=== PATIENT | male | born 1940 | race Caucasian/White ===

== ENCOUNTER 2017-02-14 12:50 | Inpatient (IN) | payer MEDICARE, OTHER ==
[2017-02-14] VITALS (8 sets, daily range): BP systolic 94–158; BP diastolic 49–84
[~2017-02-14] VITALS: Ht 170.2 cm; Wt 77.2 kg
--- NOTE | 2017-02-14 12:56 | PHYS DOC ---
Adult General Chief Complaint Chief Complaint: MECHANICAL FALL HPI HPI Patient presented to the emergency department from home via EMS for evaluation of worsening weakness confusion and inability to stand or walk. He was starting to feel worse last night as patient's son has been having diarrhea which he thinks he passed it onto his father who is been having diarrhea as well this morning he had a syncopal episode or some sort of fall and was found down and he could not stand up or make the slightest effort to get up. Son had to pick him up and still the patient would not move at all so EMS was called. Patient is pleasantly confused and no 1 and family feels that his confusion is slightly worse. Patient denies any complaints whatsoever as he denies any pain fevers or vomiting but as stated above his mental capacity is rather limited. He has not seen a physician in at least several years per the family and he does have diabetes that is not being treated at all. He is in no obvious distress however tachycardic. Review of Systems Review of Systems UNABLE TO OBTAIN DUE TO DEMENTIA Physical Exam Physical Exam Constitutional: Well developed, well nourished, no acute distress, non-toxic appearance. [] HENT: Normocephalic, atraumatic, bilateral external ears normal, oropharynx moist, no oral exudates, nose normal. [] Eyes: PERRLA, EOMI, conjunctiva normal, no discharge. [] Neck: Normal range of motion, no tenderness, supple, no stridor. Negative Kernig 's and Brudzinski's. Cardiovascular:Heart rate regular rhythm but tachycardic, no murmur [] Lungs & Thorax: Bilateral breath sounds clear to auscultation [] Abdomen: Bowel sounds normal, soft, no tenderness, no masses, no pulsatile masses. [] Skin: Warm, dry, no erythema, no rash. [] Back: No tenderness, no CVA tenderness. [] Extremities: No tenderness, no cyanosis, no clubbing, ROM intact, no edema. [] Neurologic: Alert and oriented X 1, normal motor function, normal sensory function, no focal deficits noted. [] EKG EKG [] Radiology/Procedures Radiology/Procedures CT head without contrast History: Fall today, altered mental status. Comparison: None. Procedure: Axial images are obtained of the head from the skull base through the vertex without IV contrast. One or more of the following individualized dose reduction techniques were utilized for the study: Automated exposure control Adjustment of mA and/or kV according to patient's size Use of iterative reconstruction technique. Findings: The ventricles and sulci are normal for the patient's age. No mass-effect, intracranial mass, midline shift, hemorrhage or obvious acute infarction is identified. Basilar cisterns are patent. Bone windows demonstrate no significant calvarial abnormality. The visualized paranasal sinuses appear clear. Impression: No acute intracranial process. Please note that CT can be relatively insensitive to acute ischemic infarction for up to 24 hours after symptom onset. DICTATED AND SIGNED BY: CATHLEEN HARO MD DATE: 02/14/17 3928 Exam: AP portable chest. History: Altered mental status, fall. Comparison: None. Findings: The heart and mediastinal structures are within normal limits for size. Lungs are without infiltrate. No pneumothorax or pleural effusion is appreciated. Impression: 1. No acute cardiopulmonary process. DICTATED AND SIGNED BY: CATHLEEN HARO MD DATE: 02/14/17 0537 Course & Med Decision Making Course & Med Decision Making Patient presenting to the emergency department for worsening weakness and confusion. He is in mild DKA however he is not severely acidotic based off his chemistry profile. He does have lactic acid acidosis. Source of infection unknown however his chest x-ray and urine are clear he may have an infectious diarrhea. Son's diarrheas clearing so it is doubtful that it is C. difficile. Patient is being treated aggressively with IV fluids and given a dose of Rocephin in addition to starting an insulin drip. We'll also get by mouth and IV potassium. Patient admitted in stable but serious condition to the ICU. Critical care time of 35 minutes. Dragon Disclaimer Dragon Disclaimer This chart was dictated in whole or in part using Voice Recognition software in a busy, high-work load, and often noisy Emergency Department environment. It may contain unintended and wholly unrecognized errors or omissions. Departure Departure: Impression: Primary Impression: Sepsis Additional Impressions: Lactic acid acidosis DKA (diabetic ketoacidoses) Diarrhea Leukocytosis Hypokalemia Disposition: ADMITTED INPATIENT Condition: IMPROVED Problem Qualifiers Primary Impression: Sepsis Sepsis type: sepsis due to unspecified organism Qualified Code: A41.9 - Sepsis, unspecified organism Additional Impressions: WILLIAM THAKKAR DO Feb 14, 2017 12:56
--- NOTE | 2017-02-14 13:22 | EKG ---
[address] [address] Test Date: 2017-02-14 Test Time: 13:20:09 Pat Name: MICK VALDOVINOS Department: Room: Gender: M Donor Floor Technician: : 1940 Requested By: WILLIAM THAKKAR Order Number: [id number] Julia MD: Bronson Alanis Measurements Intervals [place] Rate: 108 P: 52 DC: 186 QRS: -114 QRSD: 82 T: 67 QT: 324 QTc: 438 Interpretive Statements SINUS TACHYCARDIA Electronically Signed On 02-17-2017 9:39:20 CDT by Bronson Alanis
[2017-02-14] MEDS ORDERED: IV NORMAL SALINE 1,000ML 1,000 ML IV ONE ×2 (13:45→14:15)
[2017-02-14 13:53] LABS: BASO % 0 % (0-3); EOS % 0 % (0-3); HEMATOCRIT 48.1 % (39.0-53.0); HEMOGLOBIN 16.1 g/dL (13.0-17.5); LYMPH # 0.5 x10^3/uL (1.0-4.8); LYMPH % 3 % (24-48); MEAN CORPUSCULAR HEMOGLOBIN 30 pg (25-35); MEAN CORPUSCULAR HGB CONC 34 g/dL (31-37); MEAN CORPUSCULAR VOLUME 89 fL (79-100); MONO # 1.3 x10^3/uL (0.0-1.1); MONO % 8 % (0-9); NEUT # 13.9 x10^3uL (1.8-7.7); NEUT % 89 % (31-73); PLATELET COUNT 320 x10^3/uL (140-400); RED BLOOD COUNT 5.43 x10^6/uL (4.30-5.70); RED CELL DISTRIBUTION WIDTH 12.5 % (11.5-14.5); WHITE BLOOD COUNT 15.7 x10^3/uL (4.0-11.0)
--- NOTE | 2017-02-14 13:57 | RAD ---
Exam: AP portable chest. History: Altered mental status, fall. Comparison: None. Findings: The heart and mediastinal structures are within normal limits for size. Lungs are without infiltrate. No pneumothorax or pleural effusion is appreciated. Impression: 1. No acute cardiopulmonary process.
--- NOTE | 2017-02-14 13:58 | RAD ---
CT head without contrast History: Fall today, altered mental status. Comparison: None. Procedure: Axial images are obtained of the head from the skull base through the vertex without IV contrast. One or more of the following individualized dose reduction techniques were utilized for the study: Automated exposure control Adjustment of mA and/or kV according to patient's size Use of iterative reconstruction technique. Findings: The ventricles and sulci are normal for the patient's age. No mass-effect, intracranial mass, midline shift, hemorrhage or obvious acute infarction is identified. Basilar cisterns are patent. Bone windows demonstrate no significant calvarial abnormality. The visualized paranasal sinuses appear clear. Impression: No acute intracranial process. Please note that CT can be relatively insensitive to acute ischemic infarction for up to 24 hours after symptom onset.
[2017-02-14 14:12] LABS: ALBUMIN 3.8 g/dL (3.4-5.0); CALCIUM 8.8 mg/dL (8.5-10.1); CREATININE 1.3 mg/dL (0.7-1.3); GFR 53.8; POTASSIUM 3.3 mmol/L (3.5-5.1); TOTAL BILIRUBIN 1.6 mg/dL (0.2-1.0); TOTAL PROTEIN 7.8 g/dL (6.4-8.2)
[2017-02-14 14:16] LABS: CLARITY,URINE HAZY; COLOR,URINE YELLOW; GLUCOSE,URINE >=1000 mg/dL (NEG)
[2017-02-14 14:17] LABS: BACTERIA,URINE 0 /HPF (0-FEW); BILIRUBIN,URINE NEG (NEG); NITRITE,URINE NEG (NEG); SQUAMOUS EPITHELIAL CELL,UR FEW /LPF; UROBILINOGEN,URINE 0.2 mg/dL (0.2 mg/dL); WBC,URINE OCC /HPF (0-4)
[2017-02-14] MEDS ORDERED: ONDANSETRON PF 4 MG/2 ML VIAL. IV PRN ×3 (14:30→16:30)
[2017-02-14 14:48] LABS: % BANDS 2 % (0-9); % LYMPHS 3 % (24-48); % MONOS 14 % (0-10); % SEGS 81 % (35-66)
[2017-02-14 14:57] LABS: PLT ESTIMATE ADEQUATE (ADEQUATE)
[2017-02-14] MEDS ORDERED: POTASSIUM CHLORIDE 20 MEQ TABLET.ER. PO ONE ×3 (15:15→21:00)
[2017-02-14] MEDS ORDERED: POTASSIUM CHLORIDE 20MEQ 100 ML IV ONE (15:15)
--- NOTE | 2017-02-14 15:23 | ACF ---
Admission Criteria Forms SEPSIS and OTHER FEBRILE ILLNESS, W/O FOCAL INFECTION Clinical Indications for Admission to Inpatient Care ( Place 'X' for any and all applicable criteria): Admission is indicated for ANY ONE of the following (1)(2)(3)(4): [ ] I. Bacteremia [ ]II. Suspected or identified specific infection requiring hospitalization (eg, meningitis, endocarditis) [ ]III. Hemodynamic instability [ ]IV. Altered mental status [ ]V. Failure or unavailability of outpatient antimicrobial treatment [ ]. Hypoxemia [ ]VII. Seizures [ ]VIII. High-risk febrile neutropenia [ ]IX. Need for parenteral antibiotic in patient who is likely to abuse vascular access device (eg, injection drug user) [A](7) [ ]X. Temperature greater than 104.9 degrees F (40.5 degrees C) (oral) [X]XI. Inpatient admission required rather than observation care because of ANY ONE of the following: [ ]1) Specific infection identified that is too severe for outpatient treatment or observation care trial [X]2) Metabolic disorder (eg, hypoglycemia, hyperglycemia, metabolic acidosis) that is severe or persistent [ ]3) Temperature greater than 103.1 degrees F (39.5 degrees C) ( oral) that is not responsive to observation care treatment [ ]4) IV fluid to replace significant ongoing (eg, for over 24 hours) losses (> 3 L/m2 per day) [ ]5) Supplemental oxygen or respiratory treatments for over 24 hours that is performable only in acute inpatient setting [ ]6) Parenteral nutrition regimen need that must be implemented on inpatient basis [ ]7) Strict or protective (eg, laminar flow) isolation [ ]8) Other condition, treatment or monitoring requiring inpatient admission Extended stay beyond goal length of stay may be needed for(1)(3) [ ]a) Sepsis or septic shock(22) [ ]b) Positive blood cultures [ ]c) Insufficient oral intake [ ]d) High-risk febrile neutropenia(29)(30) [ ]e) Continued fever and clinical instability [ ]f) Clinically active comorbid illness (e.g,heart failure, renal failure , diabetes) The original [facility] content created by Rosana Almeida has been revised. The portions of the content which have been revised are identified through the use of italic text or in bold, and Rosana Almeida has neither reviewed nor approved the modified material. All other unmodified content is copyright [facility]. Please see references footnoted in the original [facility] edition 2016 Admission Criteria Met?: Yes DERRICK VERONICA Feb 14, 2017 15:23
[2017-02-14] MEDS ORDERED: INSULIN REGULAR 150 UNIT in 0.9 % SODIUM CHLORIDE 150ML 150 ML IV ONE ×2 (15:30→16:45)
[2017-02-14] MEDS ORDERED: HALOPERIDOL LACT 5 MG/ML VIAL. IM ONE (15:30)
[2017-02-14] MEDS ORDERED: INSULIN REGULAR 150 UNIT in 0.9 % SODIUM CHLORIDE 150ML 150 ML IV PRN (16:30)
[2017-02-14] MEDS ORDERED: METOCLOPRAMIDE HCL 10 MG/2 ML VIAL. IV PRN (16:30)
[2017-02-14] MEDS ORDERED: PROCHLORPERAZINE 10 MG/2 ML VIAL. IV PRN (16:30)
[2017-02-14] MEDS ORDERED: ACETAMINOPHEN 325 MG TABLET PO PRN (16:30)
[2017-02-14] MEDS ORDERED: PROMETHAZINE 12.5 MG in IV NORMAL SALINE 50ML 50 ML IV PRN (17:15)
--- NOTE | 2017-02-14 17:28 | NUR ---
PT admitted to ICU. PT has dementia and is a poor historian. and step son are at bedside to give history. PT is normally confused, but was even worse than normal and had fallen and was unable to get up. Pt is incontinent at this time, which is abnormal for patient. PT is resting comfortably. Pt was saturated with urine on arrival to ICU. Yolanda SALAMANCA
[2017-02-14] MEDS: NORMAL SALINE IV SCH ×3 (18:11→18:42)
[2017-02-14] MEDS ORDERED: POTASSIUM CHLORIDE 40 MEQ in IV DEXTROSE 5 %-0.45 % NACL 1,000 ML IV SCH (19:00)
--- NOTE | 2017-02-14 19:15 | HP ---
ADMIT DATE: 02/14/2017 HISTORY OF PRESENT ILLNESS: The patient is a 76-year-old male patient who was brought to the Emergency Department from home via [facility] for evaluation of worsening weakness, confusion and inability to stand or walk. He apparently has had diarrhea and apparently had a syncopal episode with some sort of fall, was found down on the floor and could not stand up or make the slightest effort to get up. Son had picked him up and still the patient would not move at all and therefore the [facility] personnel were called. The patient is pleasantly confused, oriented to himself only and the family, his and his stepson felt that his confusion has worsened. The patient himself denied any complaints whatsoever. Denied any pain, nausea or vomiting. Apparently, he has not seen a physician for at least several years per the family and was in no distress when arrived to the Emergency Room, although he was tachycardic. He was investigated in the Emergency Room, was found to have leukocytosis with a white cell count of 15,000. He has also lactic acidosis and marked hyperglycemia with a blood sugar of 464 and hypokalemia with serum potassium of 3.3. His beta natriuretic peptide was high at 1091. As he has also fever, he was admitted with sepsis. Blood cultures were taken and he was admitted to the ICU to continue with IV antibiotics, IV fluid and insulin drip. PAST MEDICAL HISTORY: Significant for hypertension, diabetes, recurrent falls and dementia. PAST SURGICAL HISTORY: Significant for skin cancer removal. ALLERGIES: He has no known drug allergies. MEDICATIONS: He is not on any medication at home. FAMILY HISTORY: Unobtainable. SOCIAL HISTORY: He is , lives with his and zhenon. He does not smoke, drink alcohol or use any recreational drugs. REVIEW OF SYSTEMS: Unobtainable. The patient is extremely demented. PHYSICAL EXAMINATION: GENERAL: On examining him, he was in no apparent respiratory distress. No pallor, jaundice, cyanosis. No lymphadenopathy, no thyromegaly. No jugular venous distension. No lower limb edema. VITAL SIGNS: His heart rate was high on arrival to the Emergency Room at 110, blood pressure 146/84, temperature was 97.6 that has risen to 100.5, his respiratory rate was 16 and oxygen saturation was 97%. HEAD, EYES, EARS, NOSE AND THROAT: Showed normocephalic, atraumatic. NECK: Supple. HEART: Showed normal first and second heart sounds with no gallop, rub or murmur. CHEST: Clear to auscultation. No crepitation or rhonchi. ABDOMEN: Distended, soft, nontender. NEUROLOGIC: He was awake, alert only to self. Apparently, all his cranial nerves are intact. He moves upper extremities to a much greater extent than his lower extremities. He is mostly bed bound, although at home, he used to be able to walk. He is also incontinent of bowel and bladder. LABORATORY DATA: On admission showed a white cell count of 15,700, hemoglobin 16, hematocrit 48, MCV 89 and platelet count of 320,000 with normal manual differential. His prothrombin time was 10.9, INR 1.1, aPTT was 24. His chemistry showed a serum sodium 139, potassium 3.3, chloride 103, bicarbonate 23, anion gap of 13, BUN 17, creatinine 1.3, estimated GFR was 54 mL per minute. His glucose was 464, calcium was 8.8. His AST, ALT were normal, however, total bilirubin and alkaline phosphatase were high. His beta natriuretic peptide was 1091 and his total protein 7.8, albumin was 3.8. His urinalysis showed the urine was yellow, hazy with a pH of 5, specific gravity 1.005. There was large amount of glucose, trace of protein, trace of ketones and trace of blood. The urine was negative for nitrite, bilirubin and leukocyte esterase. There was 1-2 rbc's, occasional wbc's, no bacteria. His chest x-ray showed that the heart and mediastinal structures are within normal limits for size, lungs are without infiltrate, no pneumothorax or pleural effusion is appreciated. CT scan of the head was unremarkable and showed that the ventricles and sulci are normal for the patient's age. No mass effect, intracranial mass, midline shift, hemorrhage, obvious acute infarction were identified. His basilar cisterns are patent. Bone windows demonstrate no significant calvarial abnormality. The visualized paranasal sinuses appear normal. The impression is that the patient has no acute intracranial process with the note that the CT scan can be relatively insensitive to acute ischemic infarct up to 24 hours after symptom onset. Given that he has no evidence of urinary tract infection, the lungs are clear, his chemistry showed slightly elevated alkaline phosphatase and total bilirubin raising the possibility of biliary obstruction and therefore, I will broaden his coverage with the Zosyn. I will arrange for him to have ultrasound of abdomen tomorrow and decide on further management accordingly. PROMISE OLSEN MD DR: SOHAN/laura JOB#: [id number] / [id number]
[2017-02-14] MEDS: PIPERACILLIN/TAZOBACTAM 3.375 GM in IV NORMAL SALINE 50ML 50 ML IV SCH (19:43)
--- NOTE | 2017-02-14 19:47 | EKG ---
[address] [address] Test Date: 2017-02-14 Test Time: 18:46:07 Pat Name: MICK VALDOVINOS Department: Room: [facility] 1 Gender: M Family Psychologist: MADELAINE : 1940 Requested By: PROMISE OLSEN Order Number: [id number] Reading MD: Bronson Alanis Measurements Intervals [place] Rate: 86 P: 54 MT: 200 QRS: 48 QRSD: 80 T: 88 QT: 372 QTc: 448 Interpretive Statements SINUS RHYTHM NON-SPECIFIC ST/T CHANGES Electronically Signed On 02-19-2017 9:56:23 CDT by Bronson Alanis
[2017-02-14] MEDS ORDERED: HALOPERIDOL LACT 5 MG/ML VIAL. ONE (21:06)
[2017-02-14] MEDS: POTASSIUM CL 40MEQ D5-0.45NACL 1,000 ML IV SCH (22:07)
[2017-02-15] VITALS (24 sets, daily range): BP systolic 87–129; BP diastolic 43–76
[2017-02-15] MEDS: PIPERACILLIN/TAZOBACTAM 3.375 GM in IV NORMAL SALINE 50ML 50 ML IV SCH ×4 (00:28→18:20)
[2017-02-15] MEDS: HALOPERIDOL LACT 5 MG/ML VIAL. IVP PRN ×2 (03:29→22:48)
[2017-02-15] MEDS: POTASSIUM CL 40MEQ D5-0.45NACL 1,000 ML IV SCH ×4 (04:14→19:30)
[2017-02-15 06:25] LABS: HEMATOCRIT 37.9 % (39.0-53.0); HEMOGLOBIN 12.5 g/dL (13.0-17.5); LYMPH % 8 % (24-48); MEAN CORPUSCULAR HEMOGLOBIN 29 pg (25-35); MEAN CORPUSCULAR HGB CONC 33 g/dL (31-37); MEAN CORPUSCULAR VOLUME 89 fL (79-100); MONO % 12 % (0-9); NEUT % 79 % (31-73); PLATELET COUNT 264 x10^3/uL (140-400); RED BLOOD COUNT 4.28 x10^6/uL (4.30-5.70); RED CELL DISTRIBUTION WIDTH 12.4 % (11.5-14.5); WHITE BLOOD COUNT 12.8 x10^3/uL (4.0-11.0)
[2017-02-15 06:26] LABS: BASO % 0 % (0-3); EOS # 0.2 x10^3/uL (0.0-0.7); EOS % 1 % (0-3); MONO # 1.5 x10^3/uL (0.0-1.1); NEUT # 10.1 x10^3uL (1.8-7.7)
[2017-02-15 06:32] LABS: ALBUMIN 2.7 g/dL (3.4-5.0); ALBUMIN/GLOBULIN RATIO 0.9 (1.0-1.7); CALCIUM 7.3 mg/dL (8.5-10.1); CREATININE 1.1 mg/dL (0.7-1.3); GFR 65.3; POTASSIUM 3.6 mmol/L (3.5-5.1); TOTAL BILIRUBIN 1.1 mg/dL (0.2-1.0); TOTAL PROTEIN 5.8 g/dL (6.4-8.2)
[2017-02-15 06:33] LABS: LACTATE DEHYDROGENASE 285 U/L (85-227); LIPASE 67 U/L (73-393)
[2017-02-15] MEDS ORDERED: LORazepam 0.5 MG TABLET PO PRN (06:45)
[2017-02-15] MEDS: LORazepam 2 MG/ML VIAL IV PRN ×2 (06:54→20:40)
--- NOTE | 2017-02-15 10:47 | RAD ---
Complete abdomen ultrasound study History: Fever. Elevated liver function tests. Findings: The pancreas is homogeneous without focal enlargement. No focal aneurysmal dilatation of the abdominal aorta is seen. The intrahepatic portion of the IVC is unremarkable. The gallbladder is normal and no gallstones are seen. The extrahepatic bile duct measures 3.5 mm in caliber which is normal. The liver is homogeneous and measures 14.9 cm in length. The length of the right kidney is 10.8 cm in length and the left kidney is 10.6 cm in length. No hydronephrosis or renal mass or perinephric fluid collection is seen on either side. The spleen is homogeneous and measures 10.3 cm in length. No ascites is seen. IMPRESSION: Unremarkable study.
[2017-02-15] MEDS ORDERED: IV NORMAL SALINE 1,000ML 1,000 ML ONE (13:25)
[2017-02-15] MEDS ORDERED: IOHEXOL 300 MG/ML 75 ML VIAL. IV ONE (14:00)
--- NOTE | 2017-02-15 16:29 | PN ---
DATE: 02/15/2017 SUBJECTIVE: The patient is resting flat, comfortably, in no apparent respiratory distress. He is very confused, restless at times, required Haldol and Ativan. He continued to have borderline blood pressure, although he is afebrile today. He is unfortunately very demented and does not give any useful information. His intake was 4000, output was 400. OBJECTIVE: HEAD, EYES, EARS, NOSE, AND THROAT: Normocephalic, atraumatic. NECK: Supple. HEART: Showed normal first and second heart sounds, no gallop, rub or murmur. LUNGS: Clear to auscultation. No crepitation, no rhonchi. ABDOMEN: Distended, soft, nontender. No guarding or rigidity. No organomegaly. Hernial orifices intact. Bowel sounds normal. NEUROLOGIC: He was demented without any obvious lateralizing sign. All his cranial nerves are intact. He moves upper extremities without difficulty, although he continues to be mostly bedbound. LABORATORY DATA: His lab work as of this morning showed a serum sodium 142, potassium 3.6, chloride 110, bicarbonate 22, anion gap of 10, BUN 18, creatinine 1.1, estimated GFR was 65 mL per minute. His blood sugar was 112, calcium was 7.3. Total bilirubin 1.1. AST was 75. His alkaline phosphatase normal. His LDH was high, 285. His total protein was 5.8, albumin 2.7 and lipase was 67. His white cell count was 12,800, hemoglobin 12.5, hematocrit 37.9, MCV 89 and platelet count of 264,000 with a manual differential shows 79% polymorphs, 8% lymphocytes, 12% monocytes. ASSESSMENT: 1. Sepsis with no obvious source. His lungs are clear. Urinalysis was unremarkable. 2. The patient has hypotension, lactic acidosis and elevated LDH to getting possible bowel ischemia. His bilirubin and alkaline phosphatase was slightly high; however his abdominal ultrasound showed no evidence of acute cholecystitis or biliary obstruction. 3. Type 2 diabetes mellitus, seems reasonably controlled. 4. Hypertension, however the patient in fact hypotensive. 5. Dementia with recurrent falls. PLAN: My plan is to continue with IV antibiotic, continue with IV fluid. I will arrange for him to have a CT scan of the abdomen and pelvis with IV and oral contrast and repeat his lab work including lactic acid. PROMISE OLSEN MD DR: Zaid JOB#: [id number] / [id number]
--- NOTE | 2017-02-15 16:54 | RAD ---
PROCEDURE CT abdomen pelvis without and with intravenous contrast. HISTORY Sepsis, diabetic ketoacidosis, leukocytosis, diarrhea. TECHNIQUE Initially, noncontrast CT of the abdomen and pelvis was performed. After intravenous contrast administration, 75 milliliters Omnipaque 300, repeat CT of the abdomen pelvis was performed with a split of the bolus within excretory and partial arterial phase secondary to technical issues. Exposure: One or more of the following individualized dose reduction techniques were utilized for this examination: 1. Automated exposure control. 2. Adjustment of the mA and/or kV according to patient size. 3. Use of iterative reconstruction technique. COMPARISON None. FINDINGS Evaluation of enteric structures may be limited by lack of oral contrast. There is also motion artifact at multiple levels which could obscure subtle abnormalities. Bilateral kidneys and ureters without evidence of stone or obstruction of the noncontrast images. Liver, spleen, pancreas, and bilateral adrenal glands are unremarkable. Gallbladder is unremarkable. Aortic atherosclerosis is seen. No bowel obstruction or inflammation is seen. Colonic diverticulosis is noted, but no diverticulitis appreciated. Appendix is without evidence of inflammation. Urinary bladder is unremarkable. The prostate is moderately enlarged. Grade 1 lytic spondylolisthesis is seen at L5-S1. Post-contrast images demonstrate symmetric excretion of contrast into the ureters by the kidneys. Urinary bladder is unremarkable. IMPRESSION No acute abnormality identified in the abdomen or pelvis. Electronically signed by: John Leija MD (Feb 15, 2017 16:53:15)
[2017-02-15] MEDS ORDERED: DEXTROSE 50% 25 GM / 50ML DISP.SYRIN. IV PRN (19:15)
[2017-02-15] MEDS: LOPERAMIDE 2 MG CAPSULE PO PRN (20:40)
[2017-02-16] VITALS (15 sets, daily range): BP systolic 101–168; BP diastolic 55–88
[2017-02-16] MEDS: POTASSIUM CL 40MEQ D5-0.45NACL 1,000 ML IV SCH ×5 (00:29→23:00)
[2017-02-16] MEDS: PIPERACILLIN/TAZOBACTAM 3.375 GM in IV NORMAL SALINE 50ML 50 ML IV SCH ×5 (00:31→23:09)
--- NOTE | 2017-02-16 02:00 | NUR ---
Pt is agitated and aggressive. Pt is picking and pulling at the wires, and does not respond to redirection or other medications. Dr. Hollis called and orders received.
[2017-02-16] MEDS ORDERED: ZIPRASIDONE IM 20 MG VIAL. IM ONE (02:15)
--- NOTE | 2017-02-16 04:39 | NUR ---
Pt is agitated and keeps getting out of bed. Ripped out several IVs throughout the night. MD called at this time and orders received.
[2017-02-16 05:57] LABS: BASO % 0 % (0-3); EOS # 0.2 x10^3/uL (0.0-0.7); EOS % 2 % (0-3); HEMATOCRIT 38.9 % (39.0-53.0); LYMPH # 1.3 x10^3/uL (1.0-4.8); LYMPH % 12 % (24-48); MEAN CORPUSCULAR HEMOGLOBIN 30 pg (25-35); MEAN CORPUSCULAR HGB CONC 33 g/dL (31-37); MEAN CORPUSCULAR VOLUME 89 fL (79-100); MONO # 1.1 x10^3/uL (0.0-1.1); MONO % 11 % (0-9); NEUT # 7.8 x10^3uL (1.8-7.7); NEUT % 75 % (31-73); PLATELET COUNT 243 x10^3/uL (140-400); RED CELL DISTRIBUTION WIDTH 12.4 % (11.5-14.5); WHITE BLOOD COUNT 10.5 x10^3/uL (4.0-11.0)
[2017-02-16 06:04] LABS: ALBUMIN 2.9 g/dL (3.4-5.0); ALBUMIN/GLOBULIN RATIO 0.9 (1.0-1.7); CALCIUM 7.9 mg/dL (8.5-10.1); CREATININE 1.1 mg/dL (0.7-1.3); GFR 65.3; POTASSIUM 4.1 mmol/L (3.5-5.1); TOTAL BILIRUBIN 1.1 mg/dL (0.2-1.0); TOTAL PROTEIN 6.2 g/dL (6.4-8.2)
[2017-02-16] MEDS: INSULIN ASPART 300 UNITS/3 ML INSULN.PEN SQ SCH ×3 (08:19→16:57)
[2017-02-16] MEDS: LOPERAMIDE 2 MG CAPSULE PO PRN ×2 (14:26→18:25)
[2017-02-16] MEDS: LORazepam 2 MG/ML VIAL IV PRN ×2 (15:25→20:07)
[2017-02-16] MEDS: HALOPERIDOL LACT 5 MG/ML VIAL. IVP PRN (21:48)
[2017-02-17] MEDS: LORazepam 2 MG/ML VIAL IV PRN (01:05)
[2017-02-17 04:03] VITALS: BP 140/72
[2017-02-17] MEDS: POTASSIUM CL 40MEQ D5-0.45NACL 1,000 ML IV SCH ×2 (05:37→09:53)
[2017-02-17] MEDS: PIPERACILLIN/TAZOBACTAM 3.375 GM in IV NORMAL SALINE 50ML 50 ML IV SCH (05:38)
[2017-02-17 07:33] VITALS: BP 138/72
[2017-02-17] MEDS: INSULIN ASPART 300 UNITS/3 ML INSULN.PEN SQ SCH ×2 (07:49→12:24)
[2017-02-17 08:00] VITALS: BP 140/79
--- NOTE | 2017-02-17 08:16 | NUR ---
PT confused this am. Unable to reorient. Pt is unable to verbalize understanding of poc. Yolanda SALAMANCA
[2017-02-17] MEDS ORDERED: METF500T4 PO (14:09)
[2017-02-17 14:39] VITALS: BP 137/60
--- NOTE | 2017-02-17 14:58 | NUR ---
PT dc to home. Step son and verbalized understanding of poc and discharge. Reinforced that patient needs to follow with a primary care doctor. PT is very confused. IV removed with ease. Went over metformin and s/s of diabetes. Yolanda SALAMANCA
--- NOTE | 2017-02-17 20:50 | DS ---
DATE OF DISCHARGE: 02/17/2017 DISCHARGE DIAGNOSES: Sepsis with no obvious source, multiple tests negative, although the patient did meet the criteria; hypotension, resolved; lactic acidosis, resolved; type 2 diabetes, slightly hyperglycemic, hypertension, hypotensive dementia with recurrent falls, weakness, possible syncopal episode and no current care by primary care doctor. HOSPITAL COURSE: A 76-year-old male who was admitted to the Emergency Department for worsening weakness, confusion, inability to stand or walk. The family had a gastroenteritis run through the family. He did meet criteria for sepsis and was aggressively treated. However, all of his workup was negative. He really "turned the corners," started to speak on 02/17/2017. His meds were taken off and he was taken to the shower. He was calm and cooperative, eating better, sitting up in chair. OBJECTIVE: VITAL SIGNS: Blood pressure 137/60, pulse 80, respirations 18 and pulse ox 98% on room air. GENERAL: He was alert. HEENT: The patient's tongue was moist. NECK: Supple. LUNGS: Clear. CARDIOVASCULAR: Regular rhythm and rate with a 2/6 systolic murmur. ABDOMEN: Soft, nontender. EXTREMITIES: Without edema. LABORATORY DATA: Normal white count of 10.5. Chemistry: Glucose is in the high 200s and 300s. C. diff toxin negative. MRSA screen negative. Blood cultures negative. Urinalysis is also negative. DISPOSITION: To home with home health. PLAN: He must resume care with the primary care doctor, started him back on metformin and we will need to have his blood sugars checked by the home health nurse and then will be released to his family's care. ANDREA MERINO DO DR: DEMETRIS/laura JOB#: [id number] / [id number]
--- NOTE | 2017-02-18 16:12 | CONS ---
DATE OF CONSULTATION: 02/16/2017 PSYCHIATRIC CONSULTATION IDENTIFYING DATA: The patient is a 76-year-old male seen in ICU bed 2, [facility] for a psychiatric consult requested by Dr. Hollis on account of the patient's increased agitation, aggression within the context of his dementia. The patient seen individually, discussed with nursing staff at some length, reviewed the chart. CHIEF COMPLAINT: "No." The patient responded after I introduced myself, asked him if he knew where he was or the year, even though he said his memory was "just fine." HISTORY OF PRESENT ILLNESS: The patient was brought to the ER via EMS for evaluation of worsening weakness, confusion, inability to stand or walk. Apparently, he had diarrhea, syncopal episodes and fall, was found on the floor, could not stand up despite significant effort. Son picked him up then brought him to the ER. He has been residing at home with family. Confusion has been worsening. Reportedly, he has not seen a physician for at least several years according to the family. In the ER, he was found to have leukocytosis, lactic acidosis, hyperglycemia, sugar of 464, potassium 3.3. BNP 1091, admitted to the ICU with sepsis. While in the ICU, remains quite psychotic, labile and some of this is worsening confusion being in the ICU. At times, he appears somewhat delusional. No clear suicidal or homicidal ideation. No history of bipolar disorder. PAST PSYCHIATRIC HISTORY: Noncontributory. PAST MEDICAL HISTORY: Hypertension, diabetes mellitus, recurrent falls, progressive Alzheimer's dementia. PAST SURGICAL HISTORY: Skin cancer removal. ALLERGIES: Negative. CURRENT PSYCHOTROPICS: Negative. FAMILY HISTORY: Noncontributory. SOCIAL HISTORY: He is , lives with his and stepson. No alcohol or drug abuse history noted. MENTAL STATUS EXAMINATION: The patient was seen in his room. He is well, awake, oriented to himself, unaware the way he was, felt the year was 19 "something." Speech is coherent, rapid at times. Insight, judgment, recent, remote memory, attention, concentration, fund of knowledge poor, consistent with his diagnoses. No clear hallucinations noted, but he is somewhat suspicious disorganized. LABORATORY DATA: Reviewed. VITAL SIGNS: Temperature 97.2, pulse 80, BP 120/66. REVIEW OF SYSTEMS: No CV, , pulmonary, eye system symptoms on review. Reliability poor. IMPRESSION: Major neurocognitive disorder, Alzheimer, vascular with depression, delusion, behavioral disturbance, possible delirium, anxiety disorder, unspecified. Rest diagnoses as above. PLAN: From a psychiatric standpoint, we will add Zyprexa Zydis 2.5 mg q.2 hours p.r.n. psychosis, agitation, no further change from a psychiatric standpoint. Depending on where he is placed he lead outpatient psychiatric followup with a psychiatrist. GRACE CRAWFORD MD DR: MUNIRA/laura JOB#: [id number] / [id number]
[2017-02-23] MEDS ORDERED: LINAGLIPTIN 5 MG TABLET PO SCH (09:00)
== END 2017-02-17 15:00 | disposition home health service (06) | DRG 871 ==
LOC: ER 12:50 → ICU 14:27
PROVIDERS: ADMIT Internal Medicine; ATTEND Internal Medicine
DX: A41.9 Sepsis, unspecified organism (principal); G92 Toxic encephalopathy; E13.10 Other specified diabetes mellitus with ketoacidosis without coma; F02.81 Dementia in other diseases classified elsewhere, unspecified severity, with behavioral disturbance; E87.6 Hypokalemia; F32.9 Major depressive disorder, single episode, unspecified; G30.9 Alzheimer's disease, unspecified; I10 Essential (primary) hypertension; I95.9 Hypotension, unspecified; R55 Syncope and collapse; E11.65 Type 2 diabetes mellitus with hyperglycemia
CPT/HCPCS: 36415; 70450; 71010; 74178; 76700; 80053; 81001; 82947; 83605; 83615; 83690; 83880; 84443; 84484; 85007; 85027; 85610; 85730; 87040; 87324; 87641; 93005; 96360; J0696; J1630; J1815; J2060; J2543; J3486; J7042; Q9967; 99291-25; J7030

== ENCOUNTER 2017-02-22 12:21 | Inpatient (IN) | payer MEDICARE, OTHER ==
[~2017-02-22] VITALS: Ht 170.2 cm; Wt 76.0 kg
[~2017-02-22 12:21] MED LIST: METF500T4 PO
--- NOTE | 2017-02-22 13:02 | EKG ---
[address] [address] Test Date: 2017-02-22 Test Time: 12:59:36 Pat Name: MICK VALDOVINOS Department: Room: Gender: M Assistant Reading Teacher: APURVA : 1940 Requested By: BETH PAEZ Order Number: [id number] Reading MD: Bronson Alanis Measurements Intervals [place] Rate: 71 P: 90 MD: 168 QRS: 17 QRSD: 72 T: 96 QT: 398 QTc: 437 Interpretive Statements SINUS RHYTHM Electronically Signed On 03-03-2017 8:45:45 CDT by Bronson Alanis
[2017-02-22 13:13] LABS: BASO # 0.1 x10^3/uL (0.0-0.2); BASO % 1 % (0-3); EOS # 0.1 x10^3/uL (0.0-0.7); EOS % 1 % (0-3); HEMATOCRIT 40.8 % (39.0-53.0); HEMOGLOBIN 14.1 g/dL (13.0-17.5); LYMPH # 1.9 x10^3/uL (1.0-4.8); LYMPH % 12 % (24-48); MEAN CORPUSCULAR HEMOGLOBIN 30 pg (25-35); MEAN CORPUSCULAR HGB CONC 35 g/dL (31-37); MEAN CORPUSCULAR VOLUME 88 fL (79-100); MONO # 1.6 x10^3/uL (0.0-1.1); MONO % 10 % (0-9); NEUT # 11.5 x10^3uL (1.8-7.7); NEUT % 76 % (31-73); PLATELET COUNT 569 x10^3/uL (140-400); RED BLOOD COUNT 4.65 x10^6/uL (4.30-5.70); RED CELL DISTRIBUTION WIDTH 12.4 % (11.5-14.5); WHITE BLOOD COUNT 15.1 x10^3/uL (4.0-11.0)
[2017-02-22 13:21] LABS: ALBUMIN 3.4 g/dL (3.4-5.0); ALBUMIN/GLOBULIN RATIO 0.8 (1.0-1.7); CALCIUM 8.9 mg/dL (8.5-10.1); GFR 72.8; TOTAL BILIRUBIN 1.1 mg/dL (0.2-1.0); TOTAL PROTEIN 7.6 g/dL (6.4-8.2)
--- NOTE | 2017-02-22 13:31 | PHYS DOC ---
Past History Past Medical History: No Pertinent History Past Surgical History: No Surgical History Alcohol Use: None Drug Use: None Adult General Chief Complaint Chief Complaint: ABNORMAL LABS HPI HPI Patient is a 76-year-old male brought to the ED by his son, sent to the ED by his doctor for abnormal labs with a white blood cell count of 13,000. Patient was seen here recently for an episode of syncope or near syncope and confusion, he was worked up in the ED and felt to maybe have sepsis, he had an elevated white count over 15 at that time, treatment was started and the patient was admitted to the hospital. I read the ED note and the hospital records from that visit. He improved symptomatically and they never did find a source of infection so it sounds like his antibiotics were discontinued when he was discharged to home. They did mention that the family had had a diarrheal illness including the patient prior to this admission and maybe ended up thinking the source was viral gastroenteritis. The patient has been feeling well since discharge. He went back to his doctor for recheck, a routine posthospitalization follow-up. He had blood drawn and they called them to say that his white blood cell count was elevated at 13 and wanted him to come to the ED and get checked out. The patient at this time has no complaints. He denies any aches or pains anywhere. He denies cough or short of air, denies any GI symptoms, denies any skin rash or lesions, denies abscess or redness on the skin. Denies any UTI symptoms. He's been eating well since discharge. His son feels that he is back to baseline. Review of Systems Review of Systems Constitutional: Denies fever or chills [] Eyes: Denies eye pain [] HENT: Denies nasal congestion or sore throat [] Respiratory: Denies cough or shortness of breath [] Cardiovascular: Denies chest pain GI: Denies abdominal pain, nausea, vomiting, bloody stools or diarrhea [] : Denies dysuria or hematuria [] Musculoskeletal: Denies back pain or joint pain [] Integument: Denies rash or skin lesions [] Neurologic: Denies headache, focal weakness or sensory changes [] Allergies Allergies Allergies Coded Allergies Type Severity Reaction Last Updated Verified No Known Drug Allergies 02/15/17 No Physical Exam Physical Exam Constitutional: Well developed, well nourished, no acute distress, non-toxic appearance. Afebrile, alert, mentating normally. HENT: Normocephalic, atraumatic, bilateral external ears normal, nose normal. [ ] Eyes: conjunctiva normal, no discharge. [] Neck: Normal range of motion, no stridor. [] Cardiovascular:Heart rate regular rhythm, no murmur [] Lungs & Thorax: Bilateral breath sounds clear to auscultation [] Abdomen: Bowel sounds normal, soft, no tenderness, no masses, no pulsatile masses. [] Skin: Warm, dry, no erythema, no rash. [] Extremities: No tenderness, no cyanosis, no clubbing, ROM intact, no edema. [] Neurologic: Alert and oriented X 3, normal motor function, normal sensory function, no focal deficits noted. [] Current Patient Data Vital Signs Vital Signs Date Time Temp Pulse Resp B/P (MAP) Pulse Ox O2 Delivery O2 Flow Rate FiO2 02/22/17 12:30 98.7 73 16 99 Room Air Lab Results Laboratory Tests Test 02/22/17 12:55 White Blood Count 15.1 x10^3/uL (4.0-11.0) H Red Blood Count 4.65 x10^6/uL (4.30-5.70) Hemoglobin 14.1 g/dL (13.0-17.5) Hematocrit 40.8 % (39.0-53.0) Mean Corpuscular Volume 88 fL (79-100) Mean Corpuscular Hemoglobin 30 pg (25-35) Mean Corpuscular Hemoglobin Concent 35 g/dL (31-37) Red Cell Distribution Width 12.4 % (11.5-14.5) Platelet Count 569 x10^3/uL (140-400) #H Neutrophils (%) (Auto) 76 % (31-73) H Lymphocytes (%) (Auto) 12 % (24-48) L Monocytes (%) (Auto) 10 % (0-9) H Eosinophils (%) (Auto) 1 % (0-3) Basophils (%) (Auto) 1 % (0-3) Neutrophils # (Auto) 11.5 x10^3uL (1.8-7.7) H Lymphocytes # (Auto) 1.9 x10^3/uL (1.0-4.8) Monocytes # (Auto) 1.6 x10^3/uL (0.0-1.1) H Eosinophils # (Auto) 0.1 x10^3/uL (0.0-0.7) Basophils # (Auto) 0.1 x10^3/uL (0.0-0.2) Platelet Estimate Pending Sodium Level 135 mmol/L (136-145) L Potassium Level 4.0 mmol/L (3.5-5.1) Chloride Level 98 mmol/L (98-107) Carbon Dioxide Level 28 mmol/L (21-32) Anion Gap 9 (6-14) Blood Urea Nitrogen 13 mg/dL (8-26) Creatinine 1.0 mg/dL (0.7-1.3) Estimated GFR (Cockcroft-Gault) 72.8 BUN/Creatinine Ratio 13 (6-20) Glucose Level 322 mg/dL (70-99) H Calcium Level 8.9 mg/dL (8.5-10.1) Total Bilirubin 1.1 mg/dL (0.2-1.0) H Aspartate Amino Transferase (AST) 96 U/L (15-37) H Alanine Aminotransferase (ALT) 28 U/L (16-63) Alkaline Phosphatase 111 U/L (46-116) Total Protein 7.6 g/dL (6.4-8.2) Albumin 3.4 g/dL (3.4-5.0) Albumin/Globulin Ratio 0.8 (1.0-1.7) L EKG EKG 12-lead EKG read by me. Sinus rhythm. Heart rate 71. There are no acute ST or T wave changes indicative of ischemia or infarction. No irregularities. No STEMI. 1259 [] Radiology/Procedures Radiology/Procedures Two-view chest x-ray read by me, no infiltrate, heart size normal, lung bailey are clear, no effusion. [] Course & Med Decision Making Course & Med Decision Making Pertinent Labs and Imaging studies reviewed. (See chart for details) 76-year-old male sent to the ED for elevated white blood cell count on posthospitalization follow-up labs. He was recently hospitalized for the concern for sepsis but no source of infection was ever found and he was released with no antibiotics and today he is asymptomatic. I recommended labs, urinalysis, chest x-ray today. Today, labs are concerning for leukocytosis, hyperglycemia, elevated lactic acid , but no focus of infection noted on urinalysis, chest x-ray, or physical exam. I discussed at length with the patient, and 3 adult children who are here with him. I'm concerned that the patient has diabetes out of control and I did not sure that it would be safe to try to get better control at home while he has some significant lab abnormalities going on and he also appears to be dehydrated. His leukocytosis could be stress and dehydration but I feel he should be observed in the hospital for better diabetes control and the fact that he does have elevated lactic acid. Although he was thoroughly worked up on his recent hospitalization, and no source of infection was found, I'm concerned that his evaluation today shows the same abnormalities that he had on his recent admission and at that time he ended up having syncope, altered mental status, and was more severely ill. I don't want to send him home to get worse and possibly have a fall. The patient and his family are all agreeable to the plan for admission. I discussed the case with Dr. Ghotra, [facility], who will admit the patient. I wrote bridge orders. [] Dragon Disclaimer Dragon Disclaimer This chart was dictated in whole or in part using Voice Recognition software in a busy, high-work load, and often noisy Emergency Department environment. It may contain unintended and wholly unrecognized errors or omissions. Departure Departure: Impression: Primary Impression: Lactic acid acidosis Additional Impression: Hyperglycemia due to type 2 diabetes mellitus Disposition: ADMITTED INPATIENT Admitting Physician: Katherine Ghotra Condition: STABLE Referrals: ODELL CHRISTINE APRN (PCP) Problem Qualifiers BETH PAEZ MD February 22, 2017 13:31
[2017-02-22 13:48] LABS: % EOS 2 % (0-5); % LYMPHS 10 % (24-48); % MONOS 4 % (0-10); % SEGS 81 % (35-66)
[2017-02-22 13:49] LABS: PLT ESTIMATE ADEQUATE (ADEQUATE)
--- NOTE | 2017-02-22 14:10 | RAD ---
Indication cough. Elevated white cell count. PA and lateral views of the chest were obtained. Comparison is made to an examination 02/14/2017. The heart and pulmonary vessels appear normal. The lungs are clear. There is no pleural fluid or pneumothorax. Bony structures appear intact. There is not been a significant change compared to the previous exam IMPRESSION: No acute finding. No significant change
[2017-02-22 14:56] LABS: BILIRUBIN,URINE NEG (NEG); CLARITY,URINE CLEAR; COLOR,URINE YELLOW; GLUCOSE,URINE >=1000 mg/dL (NEG)
[2017-02-22 14:57] LABS: BACTERIA,URINE 0 /HPF (0-FEW); NITRITE,URINE NEG (NEG); RBC,URINE RARE /HPF (0-2); UROBILINOGEN,URINE 0.2 mg/dL (0.2 mg/dL); WBC,URINE RARE /HPF (0-4)
[2017-02-22 14:58] LABS: SQUAMOUS EPITHELIAL CELL,UR OCC /LPF; YEAST,URINE PRESENT /HPF
[2017-02-22] MEDS ORDERED: IV NORMAL SALINE 1,000ML 1,000 ML IV ONE ×2 (15:30→17:15)
[2017-02-22 16:25] VITALS: BP 175/96
--- NOTE | 2017-02-22 16:25 | NUR ---
The patient, MICK VALDOVINOS, 76 y/o, M admitted by ANDREA MERINO DO, was given written information regarding hospital policies, unit procedures and contact persons. Valuables were checked and left with pt. Pt's family present on admission. Pt ambulated to bathroom with stand by assistance. Pt is alert and oriented but forgetful at times.
[2017-02-22 19:45] VITALS: BP 151/80
[2017-02-22] MEDS: hydrOXYzine PAMOATE 25 MG CAPSULE PO PRN (20:46)
[2017-02-22] MEDS: INSULIN DETEMIR 300 UNITS/3 ML INSULN.PEN. SQ SCH (20:48)
--- NOTE | 2017-02-23 04:14 | ACF ---
Admission Criteria Forms DIABETES Clinical Indications for Admission to Inpatient Care (Place 'X' for any and all applicable criteria): Admission is indicated by presence of ALL (if I & II) or ANY ONE (if III or IV) of the following (1)(2)(3)(4): [ ]I. Diabetes is uncontrolled as indicated by ANY ONE of the following: [ ]a) Diabetic ketoacidosis as indicated by ALL of the following (8): [ ]i) Hyperglycemia (eg, plasma glucose greater than 200 mg/ dL (11.1 mmol/L)) [ ]ii) Acidosis (eg, arterial pH less than 7.30, serum bicarbonate level less than 15 mEq/L (mmol/L)) [ ]iii) Moderate ketonuria or ketonemia [ ]b) Hyperglycemic hyperosmolar state as indicated by ALL of the following(9)(10): [ ]i) Neurologic dysfunction (eg, stupor, coma, hemiparesis , seizure)(13) [ ]ii) Plasma glucose greater than 600 mg/dL (33.3 mmol/L) [ ]iii) Serum osmolality greater than 320 mOsm/kg (mmol/kg) [ ]c) Severe signs or symptoms secondary to hyperglycemia indicated by ANY ONE of the following: [ ]i) Altered mental status(10) [ ]ii) Significant hypovolemia or dehydration [ ]iii) Intractable nausea or vomiting [ ]iv) Unexplained fever or severe infection [ ]v) Severe electrolyte abnormality (eg, hypokalemia, hyperkalemia, hypernatremia) [ ]II. Management at other levels of care (Also use Diabetes: Observation Care as appropriate) is not feasible because of ANY ONE of the following: [ ]a) Condition was not adequately corrected with treatment at other levels of care. [ ]b) Treatment at other levels of care is not appropriate because of condition severity (eg, hyperosmolar coma). [ ]III. Contraindications and/or Inappropriate clinical situations for Observational Care in patients with Diabetes, when ANY ONE of the following is required: [ ]a) Patient require specific diagnostic workup or therapeutic intervention 22 [ ]b) Patient with abnormal vital signs or altered mental status 23 [X]IV. General contraindications and/or Inappropriate clinical situations for Observational Care in patients with Diabetes, when ANY ONE of the following is required: [X]a) Prediction of prolongation of LOS based on ANY ONE of the following may be considered as a contraindication for observational care 2, 3, 4, 5, 6, 7, 8, 9, 10, 11 [X]i) Age > 65 yrs. [ ]ii) Patient arriving by ambulance [ ]iii) Patient with high acuity [ ]iv) Patient requiring vital sign monitoring [ ]v) Patient on IV medication [ ]b) Systolic blood pressures 180mmHg 3,12 [ ]c) Patient with altered mental status including delirium and other alteration of consciousness, (3) [ ]d) Patient whose discharge disposition will be to a fpc home or rehabilitation home should not be managed in Emergency Department Observation Unit. CMS rule requires 3 days hospital stay before such placement.3,13 [ ]e) Patient with failure to thrive due to broad array of etiologies 3,16,17 [ ]f) Inability to ambulate 3,14 Extended stay beyond goal length of stay may be needed for(3)(20): [ ]a) Treatment of precipitating causes [ ]b) Development of hypoglycemia [ ]c) Complications of treatment [ ]d) Complications of decompensated diabetes (eg, acute gastric dilatation, persistent metabolic or neurologic derangement) [ ]e) Active Comorbidities [ ]f) Older patients( 65 years or older) The original [facility] ([employer]) content created by [facility] ([employer]) has been revised. The portions of the content which have been revised are identified through the use of italic text or in bold,and [facility] has neither reviewed nor approved the modified material. All other unmodified content is copyright [employer] [facility]. Please see references footnoted in the original [facility] edition 2016 Admission Criteria Met?: Yes JM HANSON February 23, 2017 04:14
[2017-02-23 05:30] VITALS: BP 145/73
[2017-02-23 06:24] LABS: BASO # 0.1 x10^3/uL (0.0-0.2); BASO % 0 % (0-3); EOS # 0.1 x10^3/uL (0.0-0.7); EOS % 0 % (0-3); HEMATOCRIT 42.2 % (39.0-53.0); HEMOGLOBIN 14.3 g/dL (13.0-17.5); LYMPH # 2.3 x10^3/uL (1.0-4.8); LYMPH % 13 % (24-48); MEAN CORPUSCULAR HEMOGLOBIN 30 pg (25-35); MEAN CORPUSCULAR HGB CONC 34 g/dL (31-37); MEAN CORPUSCULAR VOLUME 87 fL (79-100); MONO # 2.1 x10^3/uL (0.0-1.1); MONO % 12 % (0-9); NEUT # 13.1 x10^3uL (1.8-7.7); NEUT % 75 % (31-73); PLATELET COUNT 661 x10^3/uL (140-400); RED BLOOD COUNT 4.84 x10^6/uL (4.30-5.70); RED CELL DISTRIBUTION WIDTH 12.2 % (11.5-14.5); WHITE BLOOD COUNT 17.5 x10^3/uL (4.0-11.0)
[2017-02-23 06:30] LABS: CALCIUM 9.1 mg/dL (8.5-10.1); CREATININE 1.2 mg/dL (0.7-1.3); POTASSIUM 3.6 mmol/L (3.5-5.1)
[2017-02-23] MEDS ORDERED: DEXTROSE 50% 25 GM / 50ML DISP.SYRIN. IV PRN (10:30)
[2017-02-23] MEDS ORDERED: LINAGLIPTIN 5 MG TABLET PO SCH (10:30)
[2017-02-23 10:52] VITALS: BP 131/69
[2017-02-23] MEDS: LINAGLIPTIN 5 MG TABLET PO SCH (12:15)
[2017-02-23] MEDS ORDERED: INSULIN ASPART 300 UNITS/3 ML INSULN.PEN SQ ONE (12:15)
[2017-02-23] MEDS: INSULIN ASPART 300 UNITS/3 ML INSULN.PEN SQ SCH ×3 (12:18→21:00)
--- NOTE | 2017-02-23 12:51 | HP ---
ADMIT DATE: 02/22/2017 REASON FOR ADMISSION: Lactic acidosis, hyperglycemia, leukocytosis. HISTORY OF PRESENT ILLNESS: This is a 76-year-old male who was just discharged from [facility] on 02/17/2017. At that time, he was admitted for weakness and was also found to have an elevated white count and lactic acidosis. He was also hyperglycemic from his type 2 diabetes, it was not being treated. He had an extensive sepsis workup, which was negative and so was sent home without antibiotics. He presented to his primary care provider yesterday and had labs and later in the day, was called stating that his labs were abnormal and he needed to go to the Emergency Room. He did not have any particular complaints according to the family. He did have an elevated white count of 17.5 upon arrival to the Emergency Room and was found also to have fairly elevated glucoses and a lactic acid of 2.2 and so is admitted for sepsis workup. PAST MEDICAL HISTORY: Recent admission for sepsis workup which was negative, hypertension, diabetes, recurrent falls, dementia. ALLERGIES: None. HOME MEDICATIONS: He was just discharged I believe on metformin, which he has been taking for the last week; otherwise, no medications. SOCIAL HISTORY: The patient is and lives with his and stepson. He does not smoke or drink or use any recreational drugs. He is just somewhat impaired related to his memory. REVIEW OF SYSTEMS: The patient was interviewed and the patient was asked if he had a fever, sore throat, shortness of breath, chest pain, problems with his bladder, problems with his bowel, the patient emphatically denies. OBJECTIVE: VITAL SIGNS: Blood pressure 131/69, pulse 71, respirations 16, temperature 98.4; admission blood pressure though was 175/96. Height 67 inches, weight 171 pounds. GENERAL: Elderly 76-year-old in no acute distress. HEENT: His TMs were intact with erythema. Nose was patent. His throat was clear. His eyes were clear. NECK: Supple, without adenopathy. LUNGS: Clear to auscultation. CARDIOVASCULAR: Regular rhythm and rate without murmur. ABDOMEN: Soft, nontender. EXTREMITIES: Without edema. SKIN: Intact. MENTAL STATE: Calm and cooperative, but is confused. LABORATORY DATA: White count was 17.5%, was 15.1 yesterday, platelet count 661,000, no bands. Chemistry, glucoses are in the 300s, high 200s. He had one lactic acid of 2.2, now it is 1.7. Bilirubin 1.1, this he has had on previous admissions. Urinalysis is negative. ASSESSMENT: A 76-year-old with leukocytosis without source, lactic acidosis, possibly secondary to metformin and dehydration, transient hypertension, recurrent falls, dementia and hyperglycemia. PLAN: We are going to start him on Tradjenta, nighttime Lantus. Keep checking his sugars for today. He has been hydrated and his lactic acid is coming down. I do not see a need for antibiotics at this time and we will plan on discharge tomorrow. ANDREA MERINO DO DR: DEMETRIS/laura JOB#: [id number] / [id number]
--- NOTE | 2017-02-23 14:17 | NUR ---
Pt assessed and VS per flowsheet. Pt has been calm and cooperative with all cares so far this shift. Pt's family has been to visit. Pt is confused and very forgetful; pt's zhenon says that this is pt's baseline at home. Dr. Ghotra met with son and discussed plan of care and possible discharge plan for Friday. Pt's blood sugar before lunch was 443; one time order to give 15 units of Novolog received and given. Lunch dose of sliding scale was not given because of the one time order. Pt's blood sugar checked again at 1400 and result was 351. One time order received to give 10 and was given. Will check again at 1500. Pt resting comfortably in bed at this time.
[2017-02-23 19:38] VITALS: BP 113/52
[2017-02-23] MEDS ORDERED: IV NORMAL SALINE 50ML 50 ML ONE (19:57)
[2017-02-23] MEDS ORDERED: IV NORMAL SALINE 250ML 250 ML ONE (19:57)
[2017-02-23] MEDS ORDERED: cefTRIAXone SODIUM 1 GM VIAL IV ONE (19:57)
[2017-02-23] MEDS ORDERED: AZITHROMYCIN 500 MG VIAL. IV ONE (19:57)
[2017-02-23] MEDS ORDERED: AZITHROMYCIN 500 MG in IV NORMAL SALINE 250ML 250 ML IV ONE (20:00)
[2017-02-23] MEDS ORDERED: IV NORMAL SALINE 100ML 100 ML ONE (20:06)
[2017-02-23] MEDS: ACETAMINOPHEN 325 MG TABLET PO PRN (20:18)
[2017-02-23 20:27] LABS: INFLUENZA A PATIENT NEGATIVE (NEGATIVE); INFLUENZA B PATIENT NEGATIVE (NEGATIVE)
--- NOTE | 2017-02-23 20:42 | RAD ---
Portable chest, one view Indication: Fever. Time of exam 8:05 p.m. No prior studies are available for comparison. The heart size is normal. The lungs are clear. The pulmonary vascularity is normal. No infiltrate, effusion or pneumothorax is seen. Impression: No acute cardiopulmonary process is detected. Electronically signed by: Mike Rivera MD (February 23, 2017 20:40:40)
[2017-02-23] MEDS: INSULIN DETEMIR 300 UNITS/3 ML INSULN.PEN. SQ SCH (20:49)
[2017-02-23 21:31] VITALS: BP 92/57
[2017-02-23 22:11] LABS: HEMOGLOBIN A1C 10.4 % (4.8-5.6)
[2017-02-23 22:37] VITALS: BP 97/58
[2017-02-23 22:37] LABS: BILIRUBIN,URINE NEG (NEG); CLARITY,URINE CLOUDY; COLOR,URINE YELLOW; GLUCOSE,URINE >=1000 mg/dL (NEG); NITRITE,URINE NEG (NEG); UROBILINOGEN,URINE 0.2 mg/dL (0.2 mg/dL)
[2017-02-23 22:38] LABS: BACTERIA,URINE 0 /HPF (0-FEW)
[2017-02-23 22:40] LABS: AMORPHOUS SEDIMENT,UR PRESENT /HPF
[2017-02-24 06:50] LABS: CALCIUM 8.6 mg/dL (8.5-10.1); CREATININE 1.3 mg/dL (0.7-1.3); GFR 53.8; MAGNESIUM 1.8 mg/dL (1.8-2.4)
[2017-02-24 06:51] LABS: BASO % 0 % (0-3); EOS % 0 % (0-3); HEMATOCRIT 39.2 % (39.0-53.0); HEMOGLOBIN 13.1 g/dL (13.0-17.5); LYMPH # 1.6 x10^3/uL (1.0-4.8); LYMPH % 7 % (24-48); MEAN CORPUSCULAR HEMOGLOBIN 29 pg (25-35); MEAN CORPUSCULAR HGB CONC 34 g/dL (31-37); MEAN CORPUSCULAR VOLUME 88 fL (79-100); MONO # 3.8 x10^3/uL (0.0-1.1); MONO % 17 % (0-9); NEUT # 17.4 x10^3uL (1.8-7.7); NEUT % 76 % (31-73); PLATELET COUNT 521 x10^3/uL (140-400); RED BLOOD COUNT 4.47 x10^6/uL (4.30-5.70); RED CELL DISTRIBUTION WIDTH 12.5 % (11.5-14.5); WHITE BLOOD COUNT 22.8 x10^3/uL (4.0-11.0)
[2017-02-24] MEDS ORDERED: PIP/TAZO PER PHARMACY MC PRN (07:45)
[2017-02-24 07:56] LABS: % BANDS 2 % (0-9); % LYMPHS 12 % (24-48); % MONOS 10 % (0-10); % SEGS 76 % (35-66)
[2017-02-24 07:57] LABS: PLT ESTIMATE INCREASED (ADEQUATE)
[2017-02-24] MEDS: LINAGLIPTIN 5 MG TABLET PO SCH (08:11)
[2017-02-24] MEDS: IV NORMAL SALINE 1,000ML 1,000 ML IV SCH ×3 (08:11→23:02)
[2017-02-24] MEDS: INSULIN ASPART 300 UNITS/3 ML INSULN.PEN SQ SCH ×4 (08:12→21:19)
[2017-02-24] MEDS: VANCOMYCIN PER PHARMACY MC PRN (08:54)
--- NOTE | 2017-02-24 08:57 | NUR ---
Pharmacy Vancomycin Dosing Note S:Consulted to monitor and dose vancomycin started 02/24/17. O:MICK VALDOVINOS is a 76 year old M with Sepsis, unknown source Height: 5 feet, 7 inches Weight: 70.826338 kg [place] Body Weight: 66.1 kg Adjusted Body Weight: 67.8 kg Dosing Weight: Actual Other Antibiotics: ZOSYN LABS: Last BUN: 22 Last Creatinine: 1.3 Creatinine Clearance: 45.9 Last WBC: 22.8 Last Platelets: 521 Vancomycin Dosing: Loading Dose: 1750 mg x1 Dosing Weight: Actual Target Trough: 15-20 A: Initial dosing is based on height, actual weight, renal function, and indication. P: 1. Give Vancomycin 1750mg IV x1 loading dose, then Vancomycin 1000 mg IV q24h 2. Follow up Trough level on 02/26/17 at 0830 3. Pharmacy will continue to monitor, follow and adjust therapy as needed. DARRELL BORREGO [facility] 02/24/17 0857 Signed: 02/24/17 at 0900 by DARRELL BELLAMY
[2017-02-24 09:00] VITALS: BP 96/55
[2017-02-24] MEDS ORDERED: VANCOMYCIN 1.75 GM in IV NORMAL SALINE 500ML 500 ML IV ONE (09:00)
[2017-02-24] MEDS: PIPERACILLIN/TAZOBACTAM 4.5 GM in IV NORMAL SALINE 50ML 50 ML IV SCH ×3 (13:25→23:02)
[2017-02-24 13:48] VITALS: BP 131/67
[2017-02-24 14:53] VITALS: BP 120/64
[2017-02-24] MEDS: hydrOXYzine PAMOATE 25 MG CAPSULE PO PRN (19:22)
[2017-02-24] MEDS: ACETAMINOPHEN 325 MG TABLET PO PRN (19:22)
[2017-02-24 19:23] VITALS: BP 97/50
[2017-02-24] MEDS ORDERED: AZITHROMYCIN 500 MG in IV NORMAL SALINE 250ML 250 ML IV SCH (20:00)
--- NOTE | 2017-02-24 20:02 | NUR ---
Patient assessed, continue to monitor.
[2017-02-24] MEDS ORDERED: INSULIN DETEMIR 300 UNITS/3 ML INSULN.PEN. SQ SCH (21:00)
[2017-02-24] MEDS: INSULIN DETEMIR 300 UNITS/3 ML INSULN.PEN. SQ SCH (21:18)
[2017-02-25] MEDS: PIPERACILLIN/TAZOBACTAM 4.5 GM in IV NORMAL SALINE 50ML 50 ML IV SCH ×4 (04:43→22:11)
[2017-02-25] MEDS: ACETAMINOPHEN 325 MG TABLET PO PRN ×2 (04:43→20:46)
[2017-02-25 05:51] VITALS: BP 95/64
[2017-02-25 06:19] LABS: BASO % 0 % (0-3); EOS # 0.1 x10^3/uL (0.0-0.7); EOS % 0 % (0-3); HEMATOCRIT 32.1 % (39.0-53.0); HEMOGLOBIN 10.8 g/dL (13.0-17.5); LYMPH # 1.7 x10^3/uL (1.0-4.8); LYMPH % 9 % (24-48); MEAN CORPUSCULAR HEMOGLOBIN 29 pg (25-35); MEAN CORPUSCULAR HGB CONC 34 g/dL (31-37); MEAN CORPUSCULAR VOLUME 87 fL (79-100); MONO # 2.5 x10^3/uL (0.0-1.1); MONO % 13 % (0-9); NEUT # 14.6 x10^3uL (1.8-7.7); NEUT % 77 % (31-73); PLATELET COUNT 419 x10^3/uL (140-400); RED BLOOD COUNT 3.68 x10^6/uL (4.30-5.70); RED CELL DISTRIBUTION WIDTH 12.4 % (11.5-14.5); WHITE BLOOD COUNT 18.9 x10^3/uL (4.0-11.0)
[2017-02-25 06:47] LABS: ALBUMIN 2.2 g/dL (3.4-5.0); ALBUMIN/GLOBULIN RATIO 0.6 (1.0-1.7); CALCIUM 7.7 mg/dL (8.5-10.1); CREATININE 1.3 mg/dL (0.7-1.3); GFR 53.8; TOTAL BILIRUBIN 1.2 mg/dL (0.2-1.0)
[2017-02-25 06:49] LABS: POTASSIUM 2.9 mmol/L (3.5-5.1)
[2017-02-25] MEDS: INSULIN ASPART 300 UNITS/3 ML INSULN.PEN SQ SCH ×4 (07:30→19:52)
[2017-02-25] MEDS: IV NORMAL SALINE 1,000ML 1,000 ML IV SCH ×2 (07:45→12:42)
[2017-02-25] MEDS: POTASSIUM CHLORIDE 20 MEQ TABLET.ER. PO SCH ×2 (07:58→11:28)
[2017-02-25] MEDS: VANCOMYCIN 1 GM in IV NORMAL SALINE 250ML 250 ML IV SCH (07:58)
[2017-02-25] MEDS: LINAGLIPTIN 5 MG TABLET PO SCH (07:58)
[2017-02-25] MEDS: INSULIN DETEMIR 300 UNITS/3 ML INSULN.PEN. SQ SCH ×2 (07:59→20:46)
--- NOTE | 2017-02-25 08:26 | PN ---
DATE: 02/24/2017 SUBJECTIVE: The patient is resting slightly propped up in bed, in no apparent distress. He is definitely more awake and alert compared to last time I saw him here. He was apparently admitted on the weekend with hyperglycemia, leukocytosis and lactic acidosis and he presented to his primary care provider for admission and had labs and later in the day was called stating that his labs were abnormal. He needs to go to the Emergency Room. He did not have any particular complaint according to the family, did have an elevated white cell count of 17,500 on arrival to the Emergency Room, was found to have fairly elevated glucose and lactic acidosis 2.2, so was admitted for sepsis workup and again most of his workup was negative and was admitted with marked leukocytosis without obvious source of infection, lactic acidosis and possibly secondary to dehydration and hyperglycemia. He was started initially on IV Rocephin and Zithromax that was switched to healthcare-associated pneumonia protocol and after obtaining the appropriate culture. OBJECTIVE: GENERAL: When I saw him this afternoon, he was resting slightly propped up in bed, in no apparent respiratory distress. He was pale, but no jaundice, cyanosis, or thyromegaly. No jugular venous distention. No limb edema. VITAL SIGNS: His heart rate was 115, blood pressure was 131/67, temperature was 100.9, respiratory rate was 18 and oxygen saturation was 95%. HEAD, EYES, EARS, NOSE AND THROAT: Showed normocephalic, atraumatic. NECK: Supple. HEART: Showed normal first and second heart sounds. No gallop, rub or murmur. CHEST: Clear to auscultation. No crepitation or rhonchi. ABDOMEN: Distended, soft, nontender. No guarding or rigidity. No organomegaly. All hernial orifices intact. Bowel sounds normal. NEUROLOGIC: He was definitely more awake, alert, responding appropriately. Cranial nerves are intact. He moves extremities without difficulty. He ambulates without assistance or assistive devices. His intake over the last 24 hours was 1000, no output was recorded. LABORATORY DATA: This morning showed that his white cell count is in fact rising. It is 22,800, hemoglobin 13, hematocrit 39, MCV 88 and platelet count of 521,000 with manual differential showed 76% polymorphs, 7% lymphocytes and 17% monocytes. His chemistry this morning showed a serum sodium of 138, potassium 4, chloride 100, bicarbonate 28, anion gap of 10, BUN 22, creatinine 1.3, estimated GFR was 54 mL per minute. His glucose was high at 250, calcium was 8.6 and magnesium was 1.8. His hemoglobin A1c was 10.6, 13.4, which is indicating poorly controlled diabetes. So far, his blood culture showed no growth for the last 5 days. IMAGING STUDIES: He had 2 chest x-rays done on 2 consecutive days, no acute cardiopulmonary process is identified. He has had abdominal ultrasound and abdomen and pelvis CT scan which was also unremarkable. ASSESSMENT: Sepsis without any obvious source. The patient has leukocytosis, lactic acidosis and obviously hyperglycemia. His blood sugar continues to be poorly controlled. PLAN: My plan is to continue with IV antibiotic. I will increase his Lantus insulin to 10 units and arrange for him to have a total body bone scan and echocardiogram to rule out the possibility of infective endocarditis. PROMISE OLSEN MD DR: SOHAN/laura JOB#: [id number] / [id number]
--- NOTE | 2017-02-25 08:32 | NUR ---
PT very confused this am, pt was up to chair for breakfast and is back in bed for echo. PT is unable to verbalize understanding of poc. Yolanda Powers
--- NOTE | 2017-02-25 10:36 | CARD ---
APPROVED REPORT EXAM: Two-dimensional and M-mode echocardiogram with Doppler and color Doppler. Other Information Quality : GoodHR: 92bpm Rhythm : NSR INDICATION Elevated white count 2D DIMENSIONS Left Atrium(2D)3.9 (1.6-4.0cm)IVSd0.8 (0.7-1.1cm) Aortic Root(2D)2.8 (2.0-3.7cm)LVDd5.0 (3.9-5.9cm) LVOT Diameter2.0 (1.8-2.4cm)PWd0.8 (0.7-1.1cm) LVDs3.4 (2.5-4.0cm)FS (%) 32.3 % SV70.7 mlLVEF(%)60.3 (>50%) Aortic Valve AoV Peak Brant.96.3cm/sAoV VTI16.1cm AO Peak GR.3.7mmHgLVOT Peak Brant.77.3cm/s LVOT VTI 16.44cmAO Mean GR.2mmHg JULIETTE (VMAX)2.57jy0REN (VTI)3.24cm2 Mitral Valve MV E Pnbxyexj45.2cm/sMV E Peak Gr.3mmHg MV DECEL [id number] A Mufrjhaq19.7cm/s MV E Mean Gr.2mmHgE/A Ratio0.7 MV A [id number] Pulmonary Valve PV Peak Hfcooihh14.3cm/sPV Peak Grad.3mmHg Pulmonary Vein S1 Mdpnriyp85.0cm/sD2 Exiekhyz50.3cm/s LEFT VENTRICLE The left ventricle is normal size. There is normal left ventricular wall thickness. The left ventricu lar systolic function is normal and the ejection fraction is within normal range. The Ejection Fracti on is 55-60%. There is mild basal to mid infero-lateral and lateral wall hypokinesis. Remainder of th e LV has normal wall motion. Transmitral Doppler flow pattern is Grade I-abnormal relaxation pattern. RIGHT VENTRICLE The right ventricle is normal size. There is normal right ventricular wall thickness. The right ventr icular systolic function is normal. ATRIA The left atrium size is normal. The right atrium size is normal. The interatrial septum is intact wit h no evidence for an atrial septal defect or patent foramen ovale as noted on 2-D or Doppler imaging. AORTIC VALVE Grossly trileaflet valve. Not well visualized. Doppler and Color Flow revealed trace aortic regurgita tion. There is no significant aortic valvular stenosis. MITRAL VALVE Mitral annular calcification is mild. The mitral valve leaflets are thickened. There is no evidence o f mitral valve prolapse. There is no mitral valve stenosis. Doppler and Color Flow revealed mild mitr al regurgitation. TRICUSPID VALVE Doppler and Color Flow revealed no tricuspid valve regurgitation noted. PULMONIC VALVE Doppler and Color Flow revealed no pulmonic valvular regurgitation. There is no pulmonic valvular osmar nosis. GREAT VESSELS The aortic root is normal in size. The ascending aorta is normal in size. The IVC collapses <50% with inspiration. PERICARDIAL EFFUSION There is a small circumferential pericardial effusion. Critical Notification Critical Value: No <Conclusion> The left ventricular systolic function is normal and the ejection fraction is within normal range. Th e Ejection Fraction is 55-60%. There is mild basal to mid infero-lateral and lateral wall hypokinesis. Remainder of the LV has martha l wall motion. Doppler and Color Flow revealed mild mitral regurgitation. There is a small circumferential pericardial effusion without significant hemodynamic effect.
[2017-02-25 11:08] VITALS: BP 118/67
--- NOTE | 2017-02-25 11:30 | RAD ---
Indication: Recurrent infection and lactic acidosis and leukocytosis Patient was administered 26 mCi of technetium 99m MDP intravenously and whole-body imaging was performed after a 3 hour delay. There is normal uptake of activity by the axial and appendicular skeleton. There is uptake by both kidneys with excretion into the urinary bladder. There appears to be some contamination in the midline inferior to the pelvis. No abnormal foci of tracer accumulation is identified. There are no findings to suggest occult fracture or osseous metastatic disease. Impression: Unremarkable whole body bone scan.
[2017-02-25 15:01] VITALS: BP 142/77
[2017-02-25 17:40] VITALS: BP 126/74
[2017-02-25] MEDS ORDERED: diphenhydrAMINE HCL 25 MG CAPSULE PO PRN (19:00)
[2017-02-25 19:59] VITALS: BP 136/70
--- NOTE | 2017-02-25 20:51 | PDOC ---
Exam Ac Demential Exam: Ac Note: Please also refer to the separate dictated note~for this date of service dictated separately.~Patient seen individually. Discussed the patient with Nursing staff reviewed the chart.~Reviewed interim history and current functioning. Reviewed vital signs,~Labs/ Radiology~and current medications noted below. Continue current treatment with the changes noted in the dictated addendum note Assessment: Vital Signs: Vital Signs Date Time Temp Pulse Resp B/P (MAP) Pulse Ox O2 Delivery O2 Flow Rate FiO2 02/25/17 20:00 Room Air 02/25/17 19:59 99.0 95 16 136/70 (92) 92 I&O Intake and Output 02/25/17 07:00 Intake Total 2380 ml Balance 2380 ml Intake Oral 1130 ml IV Total 1250 ml # Voids 5 # Bowel Movements 1 Labs: Laboratory Tests Test 02/25/17 05:47 02/25/17 07:25 02/25/17 11:18 02/25/17 16:20 White Blood Count 18.9 x10^3/uL (4.0-11.0) H Red Blood Count 3.68 x10^6/uL (4.30-5.70) L Hemoglobin 10.8 g/dL (13.0-17.5) L Hematocrit 32.1 % (39.0-53.0) L Mean Corpuscular Volume 87 fL (79-100) Mean Corpuscular Hemoglobin 29 pg (25-35) Mean Corpuscular Hemoglobin Concent 34 g/dL (31-37) Red Cell Distribution Width 12.4 % (11.5-14.5) Platelet Count 419 x10^3/uL (140-400) H Neutrophils (%) (Auto) 77 % (31-73) H Lymphocytes (%) (Auto) 9 % (24-48) L Monocytes (%) (Auto) 13 % (0-9) H Eosinophils (%) (Auto) 0 % (0-3) Basophils (%) (Auto) 0 % (0-3) Neutrophils # (Auto) 14.6 x10^3uL (1.8-7.7) H Lymphocytes # (Auto) 1.7 x10^3/uL (1.0-4.8) Monocytes # (Auto) 2.5 x10^3/uL (0.0-1.1) H Eosinophils # (Auto) 0.1 x10^3/uL (0.0-0.7) Basophils # (Auto) 0.0 x10^3/uL (0.0-0.2) Sodium Level 138 mmol/L (136-145) Potassium Level 2.9 mmol/L (3.5-5.1) *L Chloride Level 105 mmol/L (98-107) Carbon Dioxide Level 24 mmol/L (21-32) Anion Gap 9 (6-14) Blood Urea Nitrogen 25 mg/dL (8-26) Creatinine 1.3 mg/dL (0.7-1.3) Estimated GFR (Cockcroft-Gault) 53.8 BUN/Creatinine Ratio 19 (6-20) Glucose Level 171 mg/dL (70-99) H Lactic Acid Level 1.1 mmol/L (0.4-2.0) Calcium Level 7.7 mg/dL (8.5-10.1) #L Total Bilirubin 1.2 mg/dL (0.2-1.0) H Aspartate Amino Transferase (AST) 58 U/L (15-37) H Alanine Aminotransferase (ALT) 34 U/L (16-63) Alkaline Phosphatase 62 U/L (46-116) Lactate Dehydrogenase 378 U/L (85-227) H Total Protein 6.0 g/dL (6.4-8.2) L Albumin 2.2 g/dL (3.4-5.0) L Albumin/Globulin Ratio 0.6 (1.0-1.7) L Procalcitonin 2.72 ng/mL (0.00-0.10) H Glucose (Fingerstick) 144 mg/dL (70-99) H 198 mg/dL (70-99) H 185 mg/dL (70-99) H Test 02/25/17 19:51 Glucose (Fingerstick) 129 mg/dL (70-99) H Current Medications: Meds: Current Medications Sodium Chloride 1,000 ml @ 1,000 mls/hr 1X ONCE IV Last administered on t 15:30; Start 02/22/17 at 15:30; Stop 02/22/17 at 16:29; Status DC Sodium Chloride 1,000 ml @ 1,000 mls/hr 1X ONCE IV ; Start 02/22/17 at 17:15; Stop 02/22/17 at 17:27; Status DC Insulin Detemir (Levemir) 5 units QHS SQ Last administered on 02/23/17 20:49; Start 02/22/17 at 21:00; Stop 02/24/17 at 13:59; Status DC Hydroxyzine Pamoate (Vistaril) 25 mg PRN QHS PRN PO ITCHING Last administered on 02/24/17 19:22; Start 02/22/17 at 20:15 Linagliptin (Tradjenta) 5 mg DAILY PO ; Start 02/23/17 at 10:30; Status UNV Insulin Aspart (Novolog) 0-5 UNITS QIDACHS SQ Last administered on 02/25/17 17: 07; Start 02/23/17 at 11:30 Dextrose 12.5 gm PRN Q15MIN PRN IV SEE COMMENTS; Start 02/23/17 at 10:30 Linagliptin (Tradjenta) 5 mg DAILY PO Last administered on 02/25/17 07:58; Start 02/23/17 at 11:30 Insulin Aspart (Novolog) 15 units 1X ONCE SQ Last administered on 02/23/17 12: 17; Start 02/23/17 at 12:15; Stop 02/23/17 at 12:16; Status DC Acetaminophen (Tylenol) 650 mg PRN Q6HRS PRN PO PAIN / TEMP Last administered on 02/25/17 20:46; Start 02/23/17 at 19:45 Ceftriaxone Sodium 1 gm/ Sodium Chloride 50 ml @ 100 mls/hr Q24H IV ; Start 02/24/17 at 20:00; Stop 02/24/17 at 20:00; Status DC Azithromycin 500 mg/Sodium Chloride 250 ml @ 250 mls/hr Q24H IV ; Start at 20:00; Stop 02/24/17 at 20:00; Status DC Ceftriaxone Sodium 1 gm/ Sodium Chloride 50 ml @ 100 mls/hr 1X ONCE IV Last administered on 02/23/17 20:18; Start 02/23/17 at 20:00; Stop 02/23/17 at 20:30; Status DC Azithromycin 500 mg/Sodium Chloride 250 ml @ 250 mls/hr 1X ONCE IV Last administered on 02/23/17 20:43; Start 02/23/17 at 20:00; Stop 02/23/17 at 20:59; Status DC Azithromycin (Zithromax) 500 mg STK-MED ONCE IV ; Start 02/23/17 at 19:57; Stop 02/23/17 at 19:58; Status DC Sodium Chloride 250 ml @ As Directed STK-MED ONCE .ROUTE ; Start 02/23/17 at 19: 57; Stop 02/23/17 at 19:58; Status DC Ceftriaxone Sodium (Rocephin) 1 gm STK-MED ONCE IV ; Start 02/23/17 at 19:57; Stop 02/23/17 at 19:58; Status DC Sodium Chloride 50 ml @ As Directed STK-MED ONCE .ROUTE ; Start 02/23/17 at 19:57 ; Stop 02/23/17 at 19:58; Status DC Sodium Chloride 100 ml @ As Directed STK-MED ONCE .ROUTE Last administered on 02/23/17 20:18; Start 02/23/17 at 20:06; Stop 02/23/17 at 20:07; Status DC Piperacillin Sod/ Tazobactam Sod (Zosyn Per Pharmacy) 1 each PRN DAILY PRN MC SEE COMMENTS; Start 02/24/17 at 07:45 Sodium Chloride 1,000 ml @ 125 mls/hr Q8H IV Last administered on 02/25/17 12: 42; Start 02/24/17 at 07:45 Piperacillin Sod/ Tazobactam Sod 4.5 gm/Sodium Chloride 50 ml @ 100 mls/hr Q6H IV Last administered on 02/25/17 17:07; Start 02/24/17 at 11:00 Vancomycin HCl (Vanco Per Pharmacy) 1 each PRN DAILY PRN MC SEE COMMENTS Last administered on 02/24/17 08:54; Start 02/24/17 at 08:30 Vancomycin HCl 1.75 gm/Sodium Chloride 500 ml @ 250 mls/hr 1X ONCE IV Last administered on 02/24/17 10:49; Start 02/24/17 at 09:00; Stop 02/24/17 at 10:59; Status DC Vancomycin HCl 1 gm/Sodium Chloride 250 ml @ 250 mls/hr Q24H IV Last administered on 02/25/17 07:58; Start 02/25/17 at 09:00 Vancomycin HCl 1 each 1X ONCE MC ; Start 02/26/17 at 08:30; Stop 02/26/17 at 08 :31 Insulin Detemir (Levemir) 10 units QHS SQ ; Start 02/24/17 at 21:00; Stop at 21:00; Status DC Insulin Detemir (Levemir) 10 units BID SQ Last administered on 02/25/17 20:46; Start 02/24/17 at 21:00 Potassium Chloride (Klor-Con) 40 meq Q2H PO Last administered on 02/25/17 11:28 ; Start 02/25/17 at 07:45; Stop 02/25/17 at 09:46; Status DC Diphenhydramine HCl (Benadryl) 25 mg PRN Q6HRS PRN PO SEE COMMENTS Last administered on 02/25/17 20:46; Start 02/25/17 at 19:00 Active Scripts Active Reported Metformin Hcl 500 Mg Tablet 1 Tab PO BID Diagnosis: Problems: (1) DKA (diabetic ketoacidoses) (2) Diarrhea (3) Leukocytosis (4) Sepsis (5) Hypokalemia (6) Lactic acid acidosis GRACE CRAWFORD MD February 25, 2017 20:51
[2017-02-26] MEDS: IV NORMAL SALINE 1,000ML 1,000 ML IV SCH ×2 (03:13→07:15)
[2017-02-26] MEDS: PIPERACILLIN/TAZOBACTAM 4.5 GM in IV NORMAL SALINE 50ML 50 ML IV SCH ×4 (04:46→23:46)
[2017-02-26 04:56] VITALS: BP 113/60
--- NOTE | 2017-02-26 05:00 | NUR ---
Pt noted to have increased confusion and sundowning at night, prn benadryl given. Nurse assisted patient walking halls, gait unsteady at times. Pt had episode of seeing his mother in room and stated she was standing there. Pt alert to self but disoriented to time, siltation and place.
[2017-02-26] MEDS: INSULIN ASPART 300 UNITS/3 ML INSULN.PEN SQ SCH ×4 (07:07→19:46)
[2017-02-26] MEDS: INSULIN DETEMIR 300 UNITS/3 ML INSULN.PEN. SQ SCH ×2 (07:08→21:06)
[2017-02-26] MEDS: LINAGLIPTIN 5 MG TABLET PO SCH (07:30)
--- NOTE | 2017-02-26 08:18 | NUR ---
Pt sitting up eating breakfast. Pt is not able to verbalize understanding of poc. PT is confused and hard to direct at times. Yolanda SALAMANCA
[2017-02-26 08:46] LABS: BASO % 0 % (0-3); EOS # 0.1 x10^3/uL (0.0-0.7); EOS % 1 % (0-3); HEMATOCRIT 30.3 % (39.0-53.0); HEMOGLOBIN 10.4 g/dL (13.0-17.5); LYMPH # 1.2 x10^3/uL (1.0-4.8); LYMPH % 7 % (24-48); MEAN CORPUSCULAR HEMOGLOBIN 30 pg (25-35); MEAN CORPUSCULAR HGB CONC 34 g/dL (31-37); MEAN CORPUSCULAR VOLUME 87 fL (79-100); MONO # 1.7 x10^3/uL (0.0-1.1); MONO % 10 % (0-9); NEUT % 82 % (31-73); PLATELET COUNT 442 x10^3/uL (140-400); RED CELL DISTRIBUTION WIDTH 12.5 % (11.5-14.5); WHITE BLOOD COUNT 17.1 x10^3/uL (4.0-11.0)
--- NOTE | 2017-02-26 09:01 | PN ---
DATE: 02/25/2017 SUBJECTIVE: The patient is resting, slightly propped up in bed, in no apparent distress. He is definitely more awake, alert, has been up and about, participating with physical therapy. He denied any complaint. The nursing staff did not voice any concern except that he continues to spike his temperature. PHYSICAL EXAMINATION: GENERAL: When I examined him, he looked well and was clearly in no apparent respiratory distress, pale, but no jaundice, cyanosis, or thyromegaly. No jugular venous distention. No limb edema. VITAL SIGNS: His heart rate was 97, blood pressure was 95/64, temperature was 100.2, respiratory rate 20 and oxygen saturation was 96%. HEAD, EYES, EARS, NOSE AND THROAT: Showed normocephalic, atraumatic. NECK: Supple. HEART: Showed normal first and second heart sounds with no gallop, rub or murmur. CHEST: Clear to auscultation. No crepitation or rhonchi. ABDOMEN: Distended, soft, nontender. No guarding or rigidity. No organomegaly. All hernial orifices intact. Bowel sounds normal. NEUROLOGIC: He was awake, alert, confused at times. All cranial nerves intact. He moves extremities without difficulty, ambulates without walker. His intake over the last 24 hours was 2380, no output was recorded. LABORATORY DATA: His lab work as of this morning showed the white cell count is slightly down to 18,900, hemoglobin 11, hematocrit 32, MCV 87 and platelet count of 419,000. His chemistry showed a serum sodium 138, potassium 2.9, chloride 105, bicarbonate 24, anion gap of 9, BUN 25, creatinine 1.3, estimated GFR was 54 mL per minute. His glucose was 171. Lactic acid was down to 1.1. Calcium was 7.7. Total bilirubin, AST, ALT, alkaline phosphatase were normal. His lactate dehydrogenase was high at 378. Total protein was 6, albumin 2.2. ASSESSMENT AND PLAN: Sepsis without any obvious source. The patient continued to have marked leukocytosis, lactic acidosis and obviously hyperglycemia, but, so far, the blood cultures are negative. His echocardiogram was unrevealing except small concentric pericardial effusion with normal ejection fraction. The total body bone scan is still pending. I did speak with ____ who recommended doing sedimentation rate and C-reactive protein and also procalcitonin. Meanwhile, we will continue with IV antibiotic, replenish his potassium. Other medical problems include type 2 diabetes mellitus, seems to be slightly better controlled, severe protein calorie malnutrition. PROMISE OLSEN MD DR: SOHAN/laura JOB#: [id number] / [id number]
[2017-02-26 09:03] LABS: ALBUMIN 2.3 g/dL (3.4-5.0); ALBUMIN/GLOBULIN RATIO 0.6 (1.0-1.7); CALCIUM 7.8 mg/dL (8.5-10.1); CREATININE 1.1 mg/dL (0.7-1.3); GFR 65.3; POTASSIUM 3.5 mmol/L (3.5-5.1); TOTAL BILIRUBIN 1.6 mg/dL (0.2-1.0); TOTAL PROTEIN 6.3 g/dL (6.4-8.2)
[2017-02-26] MEDS: VANCOMYCIN 1 GM in IV NORMAL SALINE 250ML 250 ML IV SCH (09:17)
[2017-02-26] MEDS: VANCOMYCIN PER PHARMACY MC PRN (09:22)
--- NOTE | 2017-02-26 09:23 | NUR ---
Pharmacy Vancomycin Dosing Note S:Consulted to monitor and dose vancomycin started 02/24/17. O:MICK VALDOVINOS is a 76 year old M with Sepsis . Height: 5 feet, 7 inches Weight: 75.114636 kg [place] Body Weight: 66.10 Adjusted Body Weight: 69.86 Dosing Weight: Actual Other Antibiotics: ZOSYN LABS: Last BUN: 17 Last Creatinine: 1.1 Creatinine Clearance: 54.4 Last WBC: 17.1 Last Platelets: 442 Tmax (past 24 hours): Microbiology: I/O: Drug Levels: Last Trough level: 7.0 on 02/26/17 at 0838 Last dose given 02/25/17 at 0758 Vancomycin Dosing: Loading Dose: 1750 mg x1, 1gm q24h Dosing Weight: Actual Target Trough: 15-20 A: Based on: Physician request for dosing P: 1. Change to Vancomycin 1000 mg IV q12h 2. Follow up Trough level on 02/28/17 at 0830 3. Pharmacy will continue to monitor, follow and adjust therapy as needed. TODD CARNES, 02/26/17 0923
[2017-02-26 09:50] LABS: % BANDS 1 % (0-9); % EOS 1 % (0-5); % LYMPHS 11 % (24-48); % MONOS 9 % (0-10); % SEGS 78 % (35-66); PLATELET CLUMP PRESENT; PLT ESTIMATE INCREASED (ADEQUATE)
[2017-02-26 09:56] LABS: SEDIMENTATION RATE 118 (0-15)
[2017-02-26 20:04] VITALS: BP 135/83
[2017-02-26] MEDS ORDERED: VANCOMYCIN 1 GM in IV NORMAL SALINE 250ML 250 ML IV SCH (21:00)
--- NOTE | 2017-02-26 21:51 | PDOC ---
Exam Ac Demential Exam: Ac Note: Please also refer to the separate dictated note~for this date of service dictated separately.~Patient seen individually. Discussed the patient with Nursing staff reviewed the chart.~Reviewed interim history and current functioning. Reviewed vital signs,~Labs/ Radiology~and current medications noted below. Continue current treatment with the changes noted in the dictated addendum note Assessment: Vital Signs: Vital Signs Date Time Temp Pulse Resp B/P (MAP) Pulse Ox O2 Delivery O2 Flow Rate FiO2 02/26/17 20:04 98.4 88 18 135/83 (100) 100 Room Air I&O Intake and Output 02/26/17 07:00 Intake Total 1910 ml Balance 1910 ml Intake Oral 1210 ml IV Total 700 ml # Voids 9 # Bowel Movements 4 Labs: Laboratory Tests Test 02/26/17 07:36 02/26/17 08:38 02/26/17 11:24 02/26/17 16:50 Glucose (Fingerstick) 87 mg/dL (70-99) 183 mg/dL (70-99) H 158 mg/dL (70-99) H White Blood Count 17.1 x10^3/uL (4.0-11.0) H Red Blood Count 3.50 x10^6/uL (4.30-5.70) L Hemoglobin 10.4 g/dL (13.0-17.5) L Hematocrit 30.3 % (39.0-53.0) L Mean Corpuscular Volume 87 fL (79-100) Mean Corpuscular Hemoglobin 30 pg (25-35) Mean Corpuscular Hemoglobin Concent 34 g/dL (31-37) Red Cell Distribution Width 12.5 % (11.5-14.5) Platelet Count 442 x10^3/uL (140-400) H Neutrophils (%) (Auto) 82 % (31-73) H Lymphocytes (%) (Auto) 7 % (24-48) L Monocytes (%) (Auto) 10 % (0-9) H Eosinophils (%) (Auto) 1 % (0-3) Basophils (%) (Auto) 0 % (0-3) Neutrophils # (Auto) 14.0 x10^3uL (1.8-7.7) H Lymphocytes # (Auto) 1.2 x10^3/uL (1.0-4.8) Monocytes # (Auto) 1.7 x10^3/uL (0.0-1.1) H Eosinophils # (Auto) 0.1 x10^3/uL (0.0-0.7) Basophils # (Auto) 0.0 x10^3/uL (0.0-0.2) Segmented Neutrophils % 78 % (35-66) H Band Neutrophils % 1 % (0-9) Lymphocytes % 11 % (24-48) L Monocytes % 9 % (0-10) Eosinophils % 1 % (0-5) Platelet Estimate Increased (ADEQUATE) Platelet Clumps, EDTA Present Erythrocyte Sedimentation Rate 118 (0-15) H Sodium Level 139 mmol/L (136-145) Potassium Level 3.5 mmol/L (3.5-5.1) Chloride Level 107 mmol/L (98-107) Carbon Dioxide Level 24 mmol/L (21-32) Anion Gap 8 (6-14) Blood Urea Nitrogen 19 mg/dL (8-26) Creatinine 1.1 mg/dL (0.7-1.3) Estimated GFR (Cockcroft-Gault) 65.3 BUN/Creatinine Ratio 17 (6-20) Glucose Level 117 mg/dL (70-99) H Calcium Level 7.8 mg/dL (8.5-10.1) L Total Bilirubin 1.6 mg/dL (0.2-1.0) H Aspartate Amino Transferase (AST) 63 U/L (15-37) H Alanine Aminotransferase (ALT) 41 U/L (16-63) Alkaline Phosphatase 73 U/L (46-116) C-Reactive Protein 177.0 mg/L (0-3.3) H Total Protein 6.3 g/dL (6.4-8.2) L Albumin 2.3 g/dL (3.4-5.0) L Albumin/Globulin Ratio 0.6 (1.0-1.7) L Vancomycin Level Trough 7.0 mcg/mL (10.0-20.0) L Vancomycin Last Dose Date 02/25/17 Vancomycin Last Dose Time 0900 Test 02/26/17 19:44 Glucose (Fingerstick) 183 mg/dL (70-99) H Current Medications: Meds: Current Medications Sodium Chloride 1,000 ml @ 1,000 mls/hr 1X ONCE IV Last administered on 15:30; Start 02/22/17 at 15:30; Stop 02/22/17 at 16:29; Status DC Sodium Chloride 1,000 ml @ 1,000 mls/hr 1X ONCE IV ; Start 02/22/17 at 17:15; Stop 02/22/17 at 17:27; Status DC Insulin Detemir (Levemir) 5 units QHS SQ Last administered on 02/23/17 20:49; Start 02/22/17 at 21:00; Stop 02/24/17 at 13:59; Status DC Hydroxyzine Pamoate (Vistaril) 25 mg PRN QHS PRN PO ITCHING Last administered on 02/24/17 19:22; Start 02/22/17 at 20:15 Linagliptin (Tradjenta) 5 mg DAILY PO ; Start 02/23/17 at 10:30; Status UNV Insulin Aspart (Novolog) 0-5 UNITS QIDACHS SQ Last administered on 02/26/17 11 :46; Start 02/23/17 at 11:30 Dextrose 12.5 gm PRN Q15MIN PRN IV SEE COMMENTS; Start 02/23/17 at 10:30 Linagliptin (Tradjenta) 5 mg DAILY PO Last administered on 02/26/17 07:30; Start 02/23/17 at 11:30 Insulin Aspart (Novolog) 15 units 1X ONCE SQ Last administered on 02/23/17 12: 17; Start 02/23/17 at 12:15; Stop 02/23/17 at 12:16; Status DC Acetaminophen (Tylenol) 650 mg PRN Q6HRS PRN PO PAIN / TEMP Last administered on 02/25/17 20:46; Start 02/23/17 at 19:45 Ceftriaxone Sodium 1 gm/ Sodium Chloride 50 ml @ 100 mls/hr Q24H IV ; Start 02/24/17 at 20:00; Stop 02/24/17 at 20:00; Status DC Azithromycin 500 mg/Sodium Chloride 250 ml @ 250 mls/hr Q24H IV ; Start at 20:00; Stop 02/24/17 at 20:00; Status DC Ceftriaxone Sodium 1 gm/ Sodium Chloride 50 ml @ 100 mls/hr 1X ONCE IV Last administered on 02/23/17 20:18; Start 02/23/17 at 20:00; Stop 02/23/17 at 20:30; Status DC Azithromycin 500 mg/Sodium Chloride 250 ml @ 250 mls/hr 1X ONCE IV Last administered on 02/23/17 20:43; Start 02/23/17 at 20:00; Stop 02/23/17 at 20:59; Status DC Azithromycin (Zithromax) 500 mg STK-MED ONCE IV ; Start 02/23/17 at 19:57; Stop 02/23/17 at 19:58; Status DC Sodium Chloride 250 ml @ As Directed STK-MED ONCE .ROUTE ; Start 02/23/17 at 19: 57; Stop 02/23/17 at 19:58; Status DC Ceftriaxone Sodium (Rocephin) 1 gm STK-MED ONCE IV ; Start 02/23/17 at 19:57; Stop 02/23/17 at 19:58; Status DC Sodium Chloride 50 ml @ As Directed STK-MED ONCE .ROUTE ; Start 02/23/17 at 19:57 ; Stop 02/23/17 at 19:58; Status DC Sodium Chloride 100 ml @ As Directed STK-MED ONCE .ROUTE Last administered on 02/23/17 20:18; Start 02/23/17 at 20:06; Stop 02/23/17 at 20:07; Status DC Piperacillin Sod/ Tazobactam Sod (Zosyn Per Pharmacy) 1 each PRN DAILY PRN MC SEE COMMENTS; Start 02/24/17 at 07:45 Sodium Chloride 1,000 ml @ 125 mls/hr Q8H IV Last administered on 02/26/17 03 :13; Start 02/24/17 at 07:45; Stop 02/26/17 at 16:38; Status DC Piperacillin Sod/ Tazobactam Sod 4.5 gm/Sodium Chloride 50 ml @ 100 mls/hr Q6H IV Last administered on 02/26/17 18:01; Start 02/24/17 at 11:00 Vancomycin HCl (Vanco Per Pharmacy) 1 each PRN DAILY PRN MC SEE COMMENTS Last administered on 02/26/17 09:22; Start 02/24/17 at 08:30; Stop 02/26/17 at 12:20 ; Status DC Vancomycin HCl 1.75 gm/Sodium Chloride 500 ml @ 250 mls/hr 1X ONCE IV Last administered on 02/24/17 10:49; Start 02/24/17 at 09:00; Stop 02/24/17 at 10:59; Status DC Vancomycin HCl 1 gm/Sodium Chloride 250 ml @ 250 mls/hr Q24H IV Last administered on 02/26/17 09:17; Start 02/25/17 at 09:00; Stop 02/26/17 at 09:25 ; Status DC Vancomycin HCl 1 each 1X ONCE MC Last administered on 02/26/17 07:15; Start 02/26/17 at 08:30; Stop 02/26/17 at 08:31; Status DC Insulin Detemir (Levemir) 10 units QHS SQ ; Start 02/24/17 at 21:00; Stop at 21:00; Status DC Insulin Detemir (Levemir) 10 units BID SQ Last administered on 02/26/17 21:06 ; Start 02/24/17 at 21:00 Potassium Chloride (Klor-Con) 40 meq Q2H PO Last administered on 02/25/17 11:28 ; Start 02/25/17 at 07:45; Stop 02/25/17 at 09:46; Status DC Diphenhydramine HCl (Benadryl) 25 mg PRN Q6HRS PRN PO SEE COMMENTS Last administered on 02/25/17 20:46; Start 02/25/17 at 19:00 Vancomycin HCl 1 gm/Sodium Chloride 250 ml @ 250 mls/hr Q12H IV ; Start at 21:00; Stop 02/26/17 at 21:00; Status DC Vancomycin HCl 1 each 1X ONCE MC ; Start 02/28/17 at 08:30; Stop 02/28/17 at 08 :30; Status DC Olanzapine (Zyprexa Zydis) 2.5 mg PRN Q2HR PRN PO PSYCHOSIS Last administered on 02/26/17 19:46; Start 02/26/17 at 14:15 Active Scripts Active Reported Metformin Hcl 500 Mg Tablet 1 Tab PO BID GRACE CRAWFORD MD February 26, 2017 21:51
[2017-02-27] MEDS: PIPERACILLIN/TAZOBACTAM 4.5 GM in IV NORMAL SALINE 50ML 50 ML IV SCH (05:13)
[2017-02-27 05:24] VITALS: BP 147/81
--- NOTE | 2017-02-27 05:25 | NUR ---
Pt awake majority of night, cooperative with care but was not able to fall asleep. PRN benadryl and zyprexa given due to increase restlessness. Nurse ambulated patient throughout halls multiple times throughout the night, requires standby assist due to being unsteady at times. Will continue to monitor.
[2017-02-27 06:16] LABS: BASO # 0.1 x10^3/uL (0.0-0.2); BASO % 0 % (0-3); EOS # 0.3 x10^3/uL (0.0-0.7); EOS % 2 % (0-3); HEMATOCRIT 29.8 % (39.0-53.0); HEMOGLOBIN 10.3 g/dL (13.0-17.5); LYMPH # 1.3 x10^3/uL (1.0-4.8); LYMPH % 10 % (24-48); MEAN CORPUSCULAR HEMOGLOBIN 30 pg (25-35); MEAN CORPUSCULAR HGB CONC 35 g/dL (31-37); MEAN CORPUSCULAR VOLUME 87 fL (79-100); MONO # 1.5 x10^3/uL (0.0-1.1); MONO % 11 % (0-9); NEUT # 10.5 x10^3uL (1.8-7.7); NEUT % 77 % (31-73); PLATELET COUNT 464 x10^3/uL (140-400); RED BLOOD COUNT 3.44 x10^6/uL (4.30-5.70); RED CELL DISTRIBUTION WIDTH 12.4 % (11.5-14.5); WHITE BLOOD COUNT 13.7 x10^3/uL (4.0-11.0)
[2017-02-27 06:23] LABS: CALCIUM 8.2 mg/dL (8.5-10.1); GFR 72.8
[2017-02-27 06:27] LABS: POTASSIUM 2.9 mmol/L (3.5-5.1)
[2017-02-27] MEDS: POTASSIUM CHLORIDE 20 MEQ TABLET.ER. PO SCH ×2 (06:47→08:05)
[2017-02-27] MEDS: INSULIN ASPART 300 UNITS/3 ML INSULN.PEN SQ SCH (07:30)
[2017-02-27] MEDS: LINAGLIPTIN 5 MG TABLET PO SCH (08:05)
[2017-02-27] MEDS: INSULIN DETEMIR 300 UNITS/3 ML INSULN.PEN. SQ SCH (08:06)
--- NOTE | 2017-02-27 08:24 | NUR ---
Pt being discharged and Readmitted as a Swing bed.\ Zeyad RN
[2017-02-27] MEDS ORDERED: INSU100V13 SQ (09:12)
[2017-02-27] MEDS ORDERED: LINA5TAB4 PO (09:12)
[2017-02-27] MEDS ORDERED: POTA20TA82 PO (09:13)
[2017-02-27] MEDS ORDERED: HYDR25TA PO (09:13)
[2017-02-27] MEDS ORDERED: OLAN5TAB5 PO (09:14)
--- NOTE | 2017-02-27 09:40 | PN ---
DATE: 02/22/2017 SUBJECTIVE: The patient is sitting comfortably in his chair, eating his lunch comfortably in no apparent distress. On questioning him, he denied any complaint. Nursing staff states that he has sundowning, becomes extremely agitated, restless at nighttime, and in fact, Dr. Chapa saw him and felt that he might be a good candidate to go to [facility]. He is afebrile. So far, all his cultures were negative. His white cell count is trending down slowly. His white cell count today is 17,000, hemoglobin 10, hematocrit 30, MCV was 87, and platelet count of 442,000. His chemistry stable. His sedimentation rate is high at 118 mL per hour and C-reactive protein was 177 mg/dL. OBJECTIVE: GENERAL: On examining him this afternoon, he looked pale, but no jaundiced, cyanosis or thyromegaly. No jugular venous distention. No limb edema. VITAL SIGNS: Her heart rate was 102, blood pressure was 118/67, temperature was 98.7, respiratory rate 20, and oxygen saturation was 96% on room air. Rest of clinical examination is unremarkable. I did in check for tenderness over his temporal arteries and he did not complain of any pain. His intake over the last 24 hours was 1680, no output was recorded. His serum sodium this morning was 139, potassium 3.5, chloride 107, bicarbonate 24, anion gap of 8, BUN 19, creatinine 1.1, estimated GFR was 65 mL per minute. His glucose 117. Calcium was 7.8. Total bilirubin, AST was slightly elevated. ALT, alkaline phosphatase were normal. His C-reactive protein was 177, total protein was 6.3, albumin 2.3, and procalcitonin was high at 2.72 ng/mL. His white cell count was 17,000, hemoglobin 10, hematocrit 30, MCV 87, and platelet count 442,000 with normal manual differential. His throat swab culture and sensitivity was negative and his blood culture so far has showed no growth after 2 days. ASSESSMENT AND PLAN: 1. Sepsis with no obvious source. So far, his chest x-ray was negative and an echocardiogram was unrevealing, and total body bone scan was unrevealing. His procalcitonin was high as well as sedimentation rate and C-reactive protein. His blood cultures are so far negative. My plan is to discontinue his vancomycin, continue with Zosyn for now, and I will discuss the presentation with Dr. Solomon to see if he has any other new insight. Other medical problems include type 2 diabetes seems to be much better controlled and severe protein calorie malnutrition and serum albumin of only 2.3 g/dL. PROMISE OLSEN MD DR: SOHAN/laura JOB#: [id number] / [id number]
--- NOTE | 2017-02-27 09:41 | CONS ---
DATE OF CONSULTATION: 02/22/2017 PSYCHIATRIC CONSULTATION IDENTIFYING DATA: The patient is a 76-year-old male seen in ICU bed 2, [facility], for a psychiatric consult requested by Dr. Hollis on account of the patient's dementia, hallucinations within the context of his elevated white cell count of unknown origin. I had seen the patient during his previous hospitalization as well. Discussed with nursing staff, reviewed current past records. CHIEF COMPLAINT: "Yes my memory is just fine. I have no problems. The year, let me see. The city, o the same." HISTORY OF PRESENT ILLNESS: The patient has a history of dementia, possibly vascular questionably Alzheimer's with delusions, behavioral disturbance. He has been residing at home with his family and admitted for weakness, elevated white cell count and lactic acidosis. He also has hyperglycemia from his type 2 diabetes, which was not being treated since he has not seen a primary care physician for a long time. Sepsis workup in the past has been negative. He has had some sleep and appetite changes, worsening hallucinations. No suicidal or homicidal ideation. No clear history of bipolar disorder. PAST PSYCHIATRIC HISTORY: As above, medical history as noted above, hypertension, diabetes, recurrent falls, dementia. ALLERGIES: None. HOME MEDICATIONS: Metformin, which he did not take. FAMILY HISTORY: Noncontributory. SOCIAL HISTORY: The patient resides home with his family despite his significant dementia, confusion, delusions, and they have been taking care of him. Follow up with primary care physician has been sporadic. No alcohol or drug abuse history. MENTAL STATUS EXAMINATION: Oriented to himself. On the surface, he does not look confused, but was unaware of the year, the name of the city where he was when he came here and why. Speech is coherent, abstraction fair, computation impaired, language function intact, attention span short. Mood and affect somewhat labile at times. Insight, judgment, recent and remote memory, attention, concentration, fund of knowledge poor, consistent with his diagnosis. VITAL SIGNS: Blood pressure 136/70, pulse 74, respirations 18 and temperature 98.4 at admission. REVIEW OF SYSTEMS: Ambulation impaired. No CV, , pulmonary, eye system symptoms on review. Reliability poor. 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 Rest of diagnoses as above. PLAN: Given his ongoing intermittent hallucinations and the fact that the previous evening, he was pulling out his IV lines, extremely more confused in the evening, labile. We will go ahead and add Zyprexa 2.5 mg q. 2 hours p.r.n. psychosis, agitation, max 10 mg in 24 hours. He may need transfer to [facility] once he is medically stable and perhaps more structured placement than returning home, but the family would have to be involved with making all of these decisions. Dr. Hollis, thank you for the opportunity to participate in your patient's care. We will follow with you. MAN Cherry CRAWFORD MD DR: MUNIRA/laura JOB#: [id number] / [id number]
[2017-02-27] MEDS ORDERED: POTASSIUM CHLORIDE 20 MEQ TABLET.ER. PO SCH (21:00)
[2017-03-05] MEDS ORDERED: TOLN133A TP (08:27)
[2017-03-05] MEDS ORDERED: FLUC100T7 PO (08:33)
== END 2017-02-27 08:25 | disposition home or self-care (01) | DRG 871 ==
LOC: ER 12:21 → ICU 15:24
PROVIDERS: ADMIT Family Medicine; ATTEND Family Medicine
DX: A41.9 Sepsis, unspecified organism (principal); E43 Unspecified severe protein-calorie malnutrition; G92 Toxic encephalopathy; F01.51 Vascular dementia, unspecified severity, with behavioral disturbance; R44.3 Hallucinations, unspecified; E87.6 Hypokalemia; I10 Essential (primary) hypertension; R55 Syncope and collapse; R29.6 Repeated falls; E11.65 Type 2 diabetes mellitus with hyperglycemia; Z68.26 Body mass index [BMI] 26.0-26.9, adult
CPT/HCPCS: 36415; 71010; 71020; 78306; 80048; 80053; 80202; 81001; 82947; 83036; 83605; 83615; 83735; 84145; 85007; 85027; 85651; 86140; 87040; 87070; 87804; 87880; 93005; 93306; 96374; A9503; J0456; J0696; J1815; J2543; J3370; J7040; J7050; Q0163; Q0177; 97110; 97116; 97530; 97535; 99285-25; J7030

== ENCOUNTER 2017-02-27 08:30 | Inpatient (IN) | payer MEDICARE, OTHER ==
[~2017-02-27] VITALS: Ht 170.2 cm; Wt 75.9 kg
[2017-02-27] MEDS ORDERED: INSU100V13 SQ (09:12)
[2017-02-27] MEDS ORDERED: LINA5TAB4 PO (09:12)
[2017-02-27] MEDS ORDERED: POTA20TA82 PO (09:13)
[2017-02-27] MEDS ORDERED: HYDR25TA PO (09:13)
[2017-02-27] MEDS ORDERED: OLAN5TAB5 PO (09:14)
[2017-02-27] MEDS ORDERED: PIP/TAZO PER PHARMACY MC PRN (09:15)
--- NOTE | 2017-02-27 09:51 | NUR ---
Swing Bed Admission to [facility] for IVAB, wound care, and PT/OT strengthening. See complete assessment per flow sheet. Patient Handbook for Longterm given to patient. Nursing Problem:PT needs PT/ OT and IV antibiotics for sepsis. Cognitive/Behavioral:PT is confused at all times, and unsteady. Pain:PT does not have any pain on admission. Respiratory Status:PT is breathing normally and does not require oxygen. Skin:PT skin is intact. Bowel/Bladder Continence:PT uses urinal at times and can be incontinent at times. When patient starts to fidget he usually needs to go to the bathroom. ADL Functional Status:PT can walk with a walker. Pt is unsteady and needs to be supervised. PT has not had any falls that we are aware of before admission. PT was admitted to ICU last week for sepsis and no infection was found. Pt was discharged to home. Pt was brought back to ER for Fever and was found to still have a high white count. PT admitted to swing now for PT/OT and antibiotics for fever of unknown origin. PT otherwise lives with his and step-son at home. Sammie Jeffers RN BSN.
--- NOTE | 2017-02-27 10:11 | NUR ---
Swing Bed Nursing Note Patient Handbook for [facility] given to patient. Nursing Problem:PT admitted to Swing bed 02/27/17 for impaired mobility due to dementia and sepsis of unknown origin. Cognitive/Behavioral: PT is pleasantly confused at all times. PT progressive gets worse at night. PT unable to be redirected at times. PRN xyprexa ordered per Dr Chapa when pt is anxious. PT did not get any sleep last night. Pain:PT does not complain of any pain. Respiratory Status: Patient does not require oxygen at this time. Pt is 98% on Ra. Skin:PT skin is intact. Some bruising noted on Right upper extremity from numerous IV's and blood draws. Bowel/Bladder Continence:PT uses urinal at times, and is incontinent at times. PT does not always know when he as to go to the bathroom. PT starts to fidget when he needs to use the restroom. ADL Functional Status: PT requires supervision with all activities. PT needs assistance to get up, but than can walk with a walker with supervision. PT was unable to dress his self this am. COMPUTER METHODS ANALYST assisted patient to get dressed. After breakfast is helped set up, pt is able to eat on his own. PT needs assistance when going to the bathroom. PT does not always remember where the bathroom is or how to use it. Requires times one assistance. PT is able to take medications with ease and can lift glass of water to mouth easily. PT is able to reposition self in bed with ease. Pt can do most hygiene activities, but requires assistance when showering. PT must be prompted at most times r/t dementia. Sammie espinal RN
[2017-02-27] MEDS: PIPERACILLIN/TAZOBACTAM 4.5 GM in IV NORMAL SALINE 50ML 50 ML IV SCH ×3 (10:35→23:08)
[2017-02-27 14:58] LABS: BASO # 0.1 x10^3/uL (0.0-0.2); BASO % 0 % (0-3); EOS # 0.3 x10^3/uL (0.0-0.7); EOS % 2 % (0-3); HEMATOCRIT 32.3 % (39.0-53.0); HEMOGLOBIN 11.1 g/dL (13.0-17.5); LYMPH # 1.5 x10^3/uL (1.0-4.8); LYMPH % 10 % (24-48); MEAN CORPUSCULAR HEMOGLOBIN 30 pg (25-35); MEAN CORPUSCULAR HGB CONC 35 g/dL (31-37); MEAN CORPUSCULAR VOLUME 87 fL (79-100); MONO # 1.7 x10^3/uL (0.0-1.1); MONO % 11 % (0-9); NEUT # 11.8 x10^3uL (1.8-7.7); NEUT % 77 % (31-73); PLATELET COUNT 538 x10^3/uL (140-400); RED BLOOD COUNT 3.73 x10^6/uL (4.30-5.70); RED CELL DISTRIBUTION WIDTH 12.6 % (11.5-14.5); WHITE BLOOD COUNT 15.4 x10^3/uL (4.0-11.0)
[2017-02-27 15:04] LABS: CALCIUM 8.2 mg/dL (8.5-10.1); CREATININE 1.2 mg/dL (0.7-1.3); POTASSIUM 3.8 mmol/L (3.5-5.1)
[2017-02-27] MEDS ORDERED: IV NORMAL SALINE 1,000ML 1,000 ML ONE (17:40)
[2017-02-27 18:54] LABS: % EOS 1 % (0-5); % LYMPHS 7 % (24-48); % MONOS 9 % (0-10); % SEGS 83 % (35-66); PLT ESTIMATE INCREASED (ADEQUATE)
[2017-02-27 19:49] VITALS: BP 124/74
[2017-02-27] MEDS: POTASSIUM CHLORIDE 20 MEQ TABLET.ER. PO SCH (20:33)
[2017-02-27] MEDS: INSULIN DETEMIR 300 UNITS/3 ML INSULN.PEN. SQ SCH (20:36)
--- NOTE | 2017-02-27 21:14 | NUR ---
Swing Bed Nursing Note Nursing Problem:PT admitted to Swing bed 02/27/17 for impaired mobility due to dementia and sepsis of unknown origin. Cognitive/Behavioral: PT is agitated and resistive with cares, stating that he is going home. PT unable to be redirected at times. PRN xyprexa given as ordered. Pain:PT does not complain of any pain. Respiratory Status: Patient does not require oxygen at this time. Pt is 96% on RA Skin:PT skin is intact. Some bruising noted on Right upper extremity from numerous IV's and blood draws. Bowel/Bladder Continence:PT uses urinal at times, and is incontinent at times. PT does not always know when he as to go to the bathroom. PT starts to fidget when he needs to use the restroom. ADL Functional Status: PT requires supervision with all activities. PT needs assistance to get up, but than can walk with a walker with supervision. Pt is able to eat on his own. PT needs assistance when going to the bathroom. PT does not always remember where the bathroom is or how to use it. Requires times one assistance. PT is able to take medications whole with ease. PT is able to reposition self in bed with ease. PT must be prompted at most times r/t dementia.
[2017-02-27] MEDS: hydrOXYzine PAMOATE 25 MG CAPSULE PO PRN (22:07)
--- NOTE | 2017-02-27 22:52 | NUR ---
*Nursing Note* At shift patient was growing increasing more anxious and agitated. Trying to get up with out assistance/walker and pulling on IV. Pt stated that he was going home even if he had to walk, insisting that he had to go to work. Attempted to orient pt to environment. To attempt to calm pt, let pt walk in the [place] with assistance. While walking the [place] pt grew more agitated once again, and quickly turned away from the nursing staff. Patient's feet got twisted causing him to stumbled and fall, catching himself with his hands. Pt assisted to a sitting position, vitals signs assessed and stable. Pt is reporting no pain at this time, and is resting comfortable in bed. Bed alarm in place, will continue to closely monitor. Dr. Hollis notified of fall at 1999, family members notified shortly afterwards. PRN Zyprexa 2.5 mg given as ordered at 1917 and 2122 PRN Vistaril 25 mg given as ordered at 2206
[2017-02-28] MEDS: PIPERACILLIN/TAZOBACTAM 4.5 GM in IV NORMAL SALINE 50ML 50 ML IV SCH ×4 (05:10→23:07)
[2017-02-28 05:26] VITALS: BP 142/74
[2017-02-28 06:26] LABS: HEMATOCRIT 28.4 % (39.0-53.0); HEMOGLOBIN 9.8 g/dL (13.0-17.5); RED BLOOD COUNT 3.28 x10^6/uL (4.30-5.70); RED CELL DISTRIBUTION WIDTH 12.4 % (11.5-14.5); WHITE BLOOD COUNT 13.5 x10^3/uL (4.0-11.0)
[2017-02-28 06:34] LABS: ALBUMIN/GLOBULIN RATIO 0.5 (1.0-1.7); CALCIUM 7.9 mg/dL (8.5-10.1); GFR 72.8; POTASSIUM 3.5 mmol/L (3.5-5.1); TOTAL BILIRUBIN 1.1 mg/dL (0.2-1.0); TOTAL PROTEIN 5.7 g/dL (6.4-8.2)
[2017-02-28] MEDS: INSULIN DETEMIR 300 UNITS/3 ML INSULN.PEN. SQ SCH ×2 (08:36→20:26)
[2017-02-28] MEDS: POTASSIUM CHLORIDE 20 MEQ TABLET.ER. PO SCH ×2 (09:00→20:18)
[2017-02-28] MEDS: LINAGLIPTIN 5 MG TABLET PO SCH (09:00)
[2017-02-28 15:25] VITALS: BP 130/86
--- NOTE | 2017-02-28 17:00 | NUR ---
Swing Bed Nursing Note Patient Handbook for [facility] given to patient. Nursing Problem:PT admitted to Swing bed 02/27/17 for impaired mobility due to dementia and sepsis of unknown origin. Cognitive/Behavioral: PT is pleasantly confused at all times. PT progressively gets worse at night. PT unable to be redirected at times. PRN Zyprexa ordered per Dr Chapa when pt is anxious. PT did not get any sleep last night. Pain:PT does not complain of any pain. Respiratory Status: Patient does not require oxygen at this time. Pt is 98% on Ra. Skin:PT skin is intact. Some bruising noted on Right upper extremity from numerous IV's and blood draws. Bowel/Bladder Continence:PT uses urinal at times, and is incontinent at times. PT does not always know when he as to go to the bathroom. PT starts to fidget when he needs to use the restroom. ADL Functional Status: PT requires supervision with all activities. PT needs assistance to get up, but than can walk with a walker with supervision. PT was unable to dress his self this am. DINING MANAGER assisted patient to get dressed. After breakfast is helped set up, pt is able to eat on his own. PT needs assistance when going to the bathroom. PT does not always remember where the bathroom is or how to use it. Requires times one assistance. PT is able to take medications with ease and can lift glass of water to mouth easily. PT is able to reposition self in bed with ease. Pt can do most hygiene activities, but requires assistance when showering. PT must be prompted at most times r/t dementia.
[2017-02-28] MEDS: ACETAMINOPHEN 325 MG TABLET PO PRN (17:24)
[2017-02-28 20:00] VITALS: BP 129/69
[2017-02-28] MEDS: hydrOXYzine PAMOATE 25 MG CAPSULE PO PRN (20:18)
--- NOTE | 2017-02-28 21:03 | NUR ---
Swing Bed Nursing Note Nursing Problem:PT admitted to Swing bed 02/27/17 for impaired mobility due to dementia and sepsis of unknown origin. Cognitive/Behavioral: PT is agitated and resistive with cares, stating that he is going home. PT unable to be redirected at times. Pain:PT does not complain of any pain. Respiratory Status: Patient does not require oxygen at this time. Pt is 98% on RA Skin:PT skin is intact. Some bruising noted on Right upper extremity from numerous IV's and blood draws. Bowel/Bladder Continence:PT walks to toilet, and is incontinent at times. PT does not always know when he as to go to the bathroom. PT starts to fidget when he needs to use the restroom. ADL Functional Status: PT requires supervision with all activities. PT needs assistance to get up, but than can walk with a walker with supervision. Pt is able to eat on his own. PT needs assistance when going to the bathroom. PT does not always remember where the bathroom is or how to use it. Requires times one assistance. PT is able to take medications whole with instruction. PT is able to reposition self in bed with ease. PT must be prompted at most times r/t dementia.
[2017-03-01] MEDS: PIPERACILLIN/TAZOBACTAM 4.5 GM in IV NORMAL SALINE 50ML 50 ML IV SCH ×4 (05:11→22:45)
[2017-03-01 05:17] VITALS: BP 127/80
[2017-03-01] MEDS: INSULIN DETEMIR 300 UNITS/3 ML INSULN.PEN. SQ SCH ×2 (08:31→20:00)
[2017-03-01] MEDS: LINAGLIPTIN 5 MG TABLET PO SCH (08:32)
[2017-03-01] MEDS: POTASSIUM CHLORIDE 20 MEQ TABLET.ER. PO SCH ×2 (08:32→20:00)
[2017-03-01 20:33] VITALS: BP 128/71
[2017-03-01] MEDS: hydrOXYzine PAMOATE 25 MG CAPSULE PO PRN (22:48)
--- NOTE | 2017-03-02 00:27 | NUR ---
Swing Bed Nursing Note Nursing Problem:PT admitted to Swing bed 02/27/17 for impaired mobility due to dementia and sepsis of unknown origin. Cognitive/Behavioral: Pt is agitated and resistive with cares, stating that he is going home. Pt unable to be redirected at times. Pain: Denies. Respiratory Status: Pt on RA and lungs CTA. Skin: Skin is intact. Some bruising noted on Right upper extremity from numerous IV's and blood draws. Bowel/Bladder Continence: Walks to toilet, and is incontinent at times. ADL Functional Status: Pt requires supervision with all activities. Pt needs assistance to get up, but than can walk with a walker with supervision. Pt is able to eat on his own. Requires times one assistance. Pt is able to take medications whole with instruction. Pt must be prompted at most times r/t dementia.
[2017-03-02] MEDS: PIPERACILLIN/TAZOBACTAM 4.5 GM in IV NORMAL SALINE 50ML 50 ML IV SCH ×4 (05:04→23:09)
[2017-03-02 06:19] VITALS: BP 134/85
[2017-03-02] MEDS: LINAGLIPTIN 5 MG TABLET PO SCH (08:00)
[2017-03-02] MEDS: POTASSIUM CHLORIDE 20 MEQ TABLET.ER. PO SCH ×2 (08:00→20:59)
[2017-03-02] MEDS: INSULIN DETEMIR 300 UNITS/3 ML INSULN.PEN. SQ SCH ×2 (08:02→21:16)
[2017-03-02 20:00] VITALS: BP 129/73
--- NOTE | 2017-03-03 01:53 | NUR ---
Swing Bed Nursing Note Patient Handbook for [facility] given to patient. Nursing Problem:Pt admitted to [facility] Skilled Unit for IV ABT and strengthening r/t weakness secondary to Sepsis of unknown origin Cognitive/Behavioral:Pt is alert and oriented to self only, significant confusion r/t time, place and situation noted. Pt noted with multiple episodes of seeking his then later in the evening looking for his mother. Easily redirected without retention of education noted. Pain: Pt denies any c/o pain discomfort or distress this shift Respiratory Status:Respirations 18 shallow even and non-labored, Lungs CTA with diminished bases bilaterally, No cough or s/s of respiratory distress noted this shift. Skin: Skin w/d with redness to buttocks noted, Kwasi care provided, Calzyme applied for prevention of skin breakdown. Pedal pulses palpable and equal bilaterally with 1+ edema noted to BLE. Bowel/Bladder Continence:Pt continent of Bowel with difficulty performing kwasi care noted, Incontinent of Bladder Multiple times this shift. ADL Functional Status:Pt requires extensive assist with ADLs, Kwasi care and dressing. Difficulty remaining focused on task long enough to complete noted. Pt up multiple times during IV ABT administration looking for his Mother, easily redirected back to bed and positioned for max comfort. Shower offered prior to bed this evening, Pt refused stating "I take my shower in the morning" Pt is ambulatory with supervision, difficulty using walker noted, Gait is steady and brisk without use of assistive devise this shift. Pt currently resting in bed with eyes closed without s/s of pain, discomfort or distress noted. Call light within easy reach at this time
[2017-03-03] MEDS: PIPERACILLIN/TAZOBACTAM 4.5 GM in IV NORMAL SALINE 50ML 50 ML IV SCH ×4 (04:59→22:36)
[2017-03-03 06:17] LABS: BASO # 0.1 x10^3/uL (0.0-0.2); BASO % 1 % (0-3); EOS # 0.4 x10^3/uL (0.0-0.7); EOS % 4 % (0-3); HEMATOCRIT 28.7 % (39.0-53.0); HEMOGLOBIN 9.8 g/dL (13.0-17.5); LYMPH # 1.7 x10^3/uL (1.0-4.8); LYMPH % 16 % (24-48); MEAN CORPUSCULAR HEMOGLOBIN 30 pg (25-35); MEAN CORPUSCULAR HGB CONC 34 g/dL (31-37); MEAN CORPUSCULAR VOLUME 87 fL (79-100); MONO # 1.8 x10^3/uL (0.0-1.1); MONO % 16 % (0-9); NEUT # 7.1 x10^3uL (1.8-7.7); NEUT % 64 % (31-73); PLATELET COUNT 658 x10^3/uL (140-400); RED BLOOD COUNT 3.29 x10^6/uL (4.30-5.70); RED CELL DISTRIBUTION WIDTH 12.7 % (11.5-14.5); WHITE BLOOD COUNT 11.1 x10^3/uL (4.0-11.0)
[2017-03-03 07:23] VITALS: BP 99/60
[2017-03-03] MEDS: POTASSIUM CHLORIDE 20 MEQ TABLET.ER. PO SCH ×2 (08:01→19:31)
[2017-03-03] MEDS: LINAGLIPTIN 5 MG TABLET PO SCH (08:01)
[2017-03-03] MEDS: INSULIN DETEMIR 300 UNITS/3 ML INSULN.PEN. SQ SCH ×2 (08:04→19:32)
--- NOTE | 2017-03-03 11:04 | NUR ---
Swing Bed Nursing Note Patient Handbook for [facility] given to patient. Nursing Problem:Pt admitted to [facility] Skilled Unit for IV ABT and strengthening r/t weakness secondary to Sepsis of unknown origin Cognitive/Behavioral:Pt is alert and oriented to self only, significant confusion r/t time, place and situation noted. Easily redirected without retention of education noted. Pain: Pt denies any c/o pain discomfort or distress this shift Respiratory Status:Respirations 18 shallow even and non-labored, Lungs CTA with diminished bases bilaterally, No cough or s/s of respiratory distress noted this shift. Skin: Skin w/d with redness to buttocks noted, Kwasi care provided, Calzyme applied for prevention of skin breakdown. Pedal pulses palpable and equal bilaterally with 1+ edema noted to BLE. Bowel/Bladder Continence:Pt continent/incontinent of Bowel with difficulty performing kwasi care noted, brief on patient. ADL Functional Status:Pt requires extensive assist with ADLs, Kwasi care and dressing. Difficulty remaining focused on task long enough to complete noted. Patient showered this morning with BILL CLERK assistance. Pt is ambulatory with supervision, difficulty using walker noted, Gait is steady and brisk without use of assistive devise this shift. Call light within easy reach at this time
--- NOTE | 2017-03-03 22:10 | NUR ---
Swing Bed Nursing Note Patient Handbook for [facility]irement given to patient. Nursing Problem: Pt admitted to [facility] Skilled Unit for IV ABT and PT/OT strengthening r/t weakness secondary to Sepsis of unknown origin. Cognitive/Behavioral: Pt is alert and oriented to self only, significant confusion r/t time, place and situation noted. Easily redirected without retention of education noted. Needs reinforcement. Pain: Pt denies any c/o pain discomfort or distress this shift. Respiratory Status: Lungs CTA with diminished bases bilaterally, No cough or s/s of respiratory distress noted this shift. Pt on room air and no SOA noted. Skin: Skin with redness to buttocks noted, Kwasi care provided, Calzyme applied for prevention of skin breakdown. Pt with 1+ edema noted to BLE. Bowel/Bladder Continence: Pt continent/incontinent of bowel with difficulty performing kwasi care noted, brief on patient. LBM=5/15 ADL Functional Status: Pt requires extensive assist with ADLs, Kwasi care and dressing. Difficulty remaining focused on task long enough to complete it. Pt showered this morning with HEEL NAILING MACHINE OPERATOR assistance. Pt is ambulatory with walker & supervision, difficulty using walker noted. Pt eats independently and takes medications whole and without difficulty.
[2017-03-04] MEDS: hydrOXYzine PAMOATE 25 MG CAPSULE PO PRN ×2 (03:52→19:35)
[2017-03-04] MEDS: PIPERACILLIN/TAZOBACTAM 4.5 GM in IV NORMAL SALINE 50ML 50 ML IV SCH ×4 (04:45→22:21)
[2017-03-04 06:25] VITALS: BP 127/70
[2017-03-04] MEDS: POTASSIUM CHLORIDE 20 MEQ TABLET.ER. PO SCH ×2 (08:19→19:35)
[2017-03-04] MEDS: LINAGLIPTIN 5 MG TABLET PO SCH (08:19)
[2017-03-04] MEDS: INSULIN DETEMIR 300 UNITS/3 ML INSULN.PEN. SQ SCH ×2 (08:24→19:47)
[2017-03-04] MEDS ORDERED: IV NORMAL SALINE 250ML 250 ML ONE (11:03)
--- NOTE | 2017-03-04 14:10 | NUR ---
Swing Bed Nursing Note Patient Handbook for [facility] given to patient. Nursing Problem: Pt admitted to [facility] Skilled Unit for IV ABT and PT/OT strengthening r/t weakness secondary to Sepsis of unknown origin. Planning on discharge home with [facility] for tomorrow 03/05/17. Cognitive/Behavioral: Pt is alert and oriented to self only, significant confusion r/t time, place and situation noted. Easily redirected. Needs reinforcement. Pain: Pt denies any c/o pain or discomfort. Respiratory Status: Lungs clear with diminished bases bilaterally. Pt on room air. Skin: Redness to buttocks noted, Kwasi care provided. New orders noted. Last shower: 03/04/17 Bowel/Bladder Continence: Pt continent/incontinent of bowel with difficulty performing kwasi care independently, brief on patient. LBM=03/03 ADL Functional Status: Pt requires x1 assist with ADLs, Kwasi care and dressing. Difficulty remaining focused on task. Pt showered today with assist x1. Pt is ambulatory with walker & supervision, at times patient forgets to use walker. Pt eats independently and takes medications whole and without difficulty.
[2017-03-04] MEDS: ACETAMINOPHEN 325 MG TABLET PO PRN (17:05)
[2017-03-04 19:08] VITALS: BP 126/81
[2017-03-04] MEDS: TOLNAFTATE 1% TOPICAL SPRAY POWDER 133GM CAN. TP SCH (19:35)
[2017-03-04] MEDS ORDERED: TOLNAFTATE 1% TP SCH (21:00)
--- NOTE | 2017-03-05 00:25 | NUR ---
Swing Bed Nursing Note Patient Handbook for [facility] given to patient. Nursing Problem: Pt admitted to [facility] Skilled Unit for IV ABT and PT/OT strengthening r/t weakness secondary to Sepsis of unknown origin. Cognitive/Behavioral: Pt is alert and oriented to self only, significant confusion r/t time, place and situation noted. Easily redirected without retention of education noted. Needs reinforcement. Pt seemed excited when reminded that he is leaving tomorrow. Pain: Pt denies any c/o pain discomfort or distress this shift. Respiratory Status: Lungs CTA with diminished bases bilaterally, No cough or s/s of respiratory distress noted this shift. Pt on room air and no SOA noted. Skin: Skin with redness to buttocks noted, Kwasi care provided, Tinactin applied for prevention of skin breakdown. Pt with 1+ edema noted to BLE. Bowel/Bladder Continence: Pt continent/incontinent of bowel with difficulty performing kwasi care noted, brief on patient. LBM=5/16 ADL Functional Status: Pt requires extensive assist with ADLs, Kwasi care and dressing. Difficulty remaining focused on task long enough to complete it. Pt is ambulatory with walker & supervision, difficulty using walker noted. Pt eats independently and takes medications whole and without difficulty.
[2017-03-05] MEDS: PIPERACILLIN/TAZOBACTAM 4.5 GM in IV NORMAL SALINE 50ML 50 ML IV SCH ×2 (04:34→11:15)
[2017-03-05 04:55] VITALS: BP 122/72
[2017-03-05] MEDS: POTASSIUM CHLORIDE 20 MEQ TABLET.ER. PO SCH (08:16)
[2017-03-05] MEDS: LINAGLIPTIN 5 MG TABLET PO SCH (08:16)
[2017-03-05] MEDS: INSULIN DETEMIR 300 UNITS/3 ML INSULN.PEN. SQ SCH (08:16)
[2017-03-05] MEDS: TOLNAFTATE 1% TOPICAL SPRAY POWDER 133GM CAN. TP SCH (08:17)
[2017-03-05] MEDS ORDERED: TOLN133A TP (08:27)
[2017-03-05] MEDS ORDERED: FLUC100T7 PO (08:33)
[2017-03-05] MEDS ORDERED: FLUCONAZOLE 100 MG TABLET. PO SCH (09:00)
--- NOTE | 2017-03-05 13:38 | NUR ---
Discharge Note: MICK VALDOVINOS Discharge instructions and discharge home medications reviewed with Family Member and a copy given. All questions have been answered and understanding verbalized. The following instructions and handouts were given: education regarding insulin instructions, tradjenta education, levemir education, discharge instructions Discontinued lines and drains: Peripheral IV intact. Patient discharged to Home or Self Care with Family Member and Spouse via Ambulated Prescription for Levemir and pen needles called in to [facility] pharmacy. Prescriptions for Diflucan, Tinactin powder, and Tradjenta given to pt. Instructions regarding insulin administration and discharge instructions given to son John; verbalized understanding.
--- NOTE | 2017-03-05 18:10 | DS ---
DATE OF DISCHARGE: 03/05/2017 SENIOR LIVING DISCHARGE DISCHARGE DIAGNOSES: 1. Neurocognitive impairment. 2. Leukocytosis without infectious source genital yeast, diabetes with hyperglycemia, hypokalemia, weakness, fall risk, and history of falls. SENIOR LIVING COURSE: This is a 76-year-old male who was admitted for elevated white count and weakness and he was extensively investigated and no infectious source could really be ascertained in spite of having elevated white count. He was treated with antibiotics and a 10-day course of Zosyn. His white count went down from 17.1 to 11.1, also had a sed rate of 118. His hyperglycemia was treated. His hypokalemia was treated and he received physical therapy and occupational therapy and was ready for discharge on 02/28/2017. He will be discharged home with home health. He also had an inguinal genital yeast, which was also treated. For medications, please see [facility] and was discharged in good condition to home with family. ANDREA MERINO DO DR: DEMETRIS/laura JOB#: [id number] / [id number]
== END 2017-03-05 13:44 | disposition home health service (06) | DRG 57 ==
LOC: LND 08:30
PROVIDERS: ADMIT Internal Medicine; ATTEND Internal Medicine
DX: G31.84 Mild cognitive impairment of uncertain or unknown etiology (principal); B37.89 Other sites of candidiasis; D72.829 Elevated white blood cell count, unspecified; Z66 Do not resuscitate; R73.9 Hyperglycemia, unspecified; E87.6 Hypokalemia; R53.1 Weakness; E11.65 Type 2 diabetes mellitus with hyperglycemia
CPT/HCPCS: 36415; 80048; 80053; 82947; 84132; 85007; 85027; 87045; 87177; 87324; J2543; Q0177; 97110; 97116; 97530; 97535; J7030

== ENCOUNTER 2018-06-18 08:37 | Inpatient (IN) | payer MEDICARE, OTHER ==
[2018-06-18] VITALS (11 sets, daily range): BP systolic 85–160; BP diastolic 45–82
[~2018-06-18] VITALS: Ht 170.2 cm; Wt 85.8 kg
[~2018-06-18 08:37] MED LIST changes: +FLUC100T7 PO; +HYDR25TA PO; +INSU100V13 SQ; +LINA5TAB4 PO; +METF500T16 PO; -METF500T4 PO; +OLAN5TAB5 PO; +POTA20TA82 PO; +TOLN133A TP
[2018-06-18] MEDS ORDERED: IV NORMAL SALINE 1,000ML 1,000 ML IV SCH (08:41)
[2018-06-18 09:13] LABS: BASO # 0.2 x10^3/uL (0.0-0.2); BASO % 1 % (0-3); EOS % 0 % (0-3); HEMATOCRIT 39.7 % (39.0-53.0); HEMOGLOBIN 13.6 g/dL (13.0-17.5); LYMPH # 1.6 x10^3/uL (1.0-4.8); LYMPH % 5 % (24-48); MEAN CORPUSCULAR HEMOGLOBIN 30 pg (25-35); MEAN CORPUSCULAR HGB CONC 34 g/dL (31-37); MEAN CORPUSCULAR VOLUME 88 fL (79-100); MONO # 3.3 x10^3/uL (0.0-1.1); MONO % 10 % (0-9); NEUT % 85 % (31-73); PLATELET COUNT 366 x10^3/uL (140-400); RED BLOOD COUNT 4.53 x10^6/uL (4.30-5.70); RED CELL DISTRIBUTION WIDTH 12.6 % (11.5-14.5); WHITE BLOOD COUNT 33.1 x10^3/uL (4.0-11.0)
[2018-06-18] MEDS ORDERED: IV NORMAL SALINE 50ML 50 ML ONE ×2 (09:26→09:37)
[2018-06-18] MEDS ORDERED: PIPERACILLIN/TAZOBACTAM 3.375 GM VIAL IV ONE ×2 (09:26→09:37)
[2018-06-18] MEDS ORDERED: ACETAMINOPHEN 650 MG SUPP.RECT. PR ONE ×2 (09:30→10:00)
--- NOTE | 2018-06-18 09:32 | RAD ---
CT HEAD WO CONTRAST History: Altered level of consciousness Comparison: February 14, 2017 Technique: Noncontrast CT imaging was performed of the head. Exposure: One or more of the following individualized dose reduction techniques were utilized for this examination: 1. Automated exposure control 2. Adjustment of the mA and/or kV according to patient size 3. Use of iterative reconstruction technique. Findings: No acute extra-axial or parenchymal hemorrhage is identified. There is no significant intra-axial mass effect, midline shift, or extra-axial fluid collection. The espinal-white differentiation of the major vascular territories is preserved. Ventricular size is fairly proportionate to the sulcal spaces, mild third and lateral ventriculomegaly. Size of ventricles is similar. There is generalized supratentorial atrophy. The mastoid air cells and the visualized paranasal sinuses are aerated. No acute calvarial abnormality is identified. Impression: 1. No acute intracranial abnormality is identified. There is generalized supratentorial atrophy. There is ventriculomegaly although probably due to atrophy. Electronically signed by: Michoacano Mari MD (06/18/2018 9:29 AM) [id number]
[2018-06-18 09:39] LABS: ALBUMIN 3.1 g/dL (3.4-5.0); ALBUMIN/GLOBULIN RATIO 0.8 (1.0-1.7); ALK PHOS 102 U/L (46-116); ALT (SGPT) 16 U/L (16-63); ANION GAP 12 (6-14); AST (SGOT) 15 U/L (15-37); BLOOD UREA NITROGEN 25 mg/dL (8-26); BUN/CREATININE RATIO 18 (6-20); CALCIUM 8.9 mg/dL (8.5-10.1); CARBON DIOXIDE 25 mmol/L (21-32); CHLORIDE 103 mmol/L (98-107); CREATININE 1.4 mg/dL (0.7-1.3); GFR 49.1; GLUCOSE 322 mg/dL (70-99); MAGNESIUM 1.7 mg/dL (1.8-2.4); POTASSIUM 3.3 mmol/L (3.5-5.1); SODIUM 140 mmol/L (136-145); TOTAL BILIRUBIN 1.9 mg/dL (0.2-1.0)
--- NOTE | 2018-06-18 09:41 | EKG ---
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
[2018-06-18] MEDS ORDERED: PIPERACILLIN/TAZOBACTAM 3.375 GM in IV NORMAL SALINE 50ML 50 ML IV ONE (09:45)
--- NOTE | 2018-06-18 09:53 | PHYS DOC ---
Past History Past Medical History: Dementia, Diabetes, Hypertension Past Surgical History: No Surgical History Smoking: Non-smoker Alcohol Use: None Drug Use: None Adult General Chief Complaint Chief Complaint: ALTERED MENTAL STATUS HPI HPI Patient is a male year old 78 who brought in by EMS because of altered level of consciousness. She has history of dementia and frequent fall and had a recent fall and seen at the [facility] with unremarkable CT head but had facial contusion. Patient was less active for the last couple days and this morning found unresponsive by his stepson who is his caregiver and power of environmental attorney and 911 was informed. EMS reported that patient was awake but somnolent and had tachycardia and did not have focal neuro deficit. Patient is febrile with tachycardia and somnolent but follows to come and and talks clear. Review of Systems Review of Systems Unable to obtain because of medical condition Current Medications Current Medications Current Medications Medications (Trade) Dose Ordered Sig/Anay Start Time Stop Time Status Last Admin Dose Admin Acetaminophen (Tylenol Supp) 650 mg 1X ONCE 06/18/18 10:00 06/18/18 10:01 06/18/18 09:41 650 MG Piperacillin Sod/ Tazobactam Sod (Zosyn) 3.375 gm STK-MED ONCE 06/18/18 09:37 06/18/18 09:38 DC Piperacillin Sod/ Tazobactam Sod 3.375 gm/Sodium Chloride 50 ml @ 100 mls/hr 1X ONCE 06/18/18 09:45 06/18/18 10:14 06/18/18 09:40 100 MLS/HR Sodium Chloride 1,000 ml @ 150 mls/hr [id number] 06/18/18 09:42 06/19/18 09:41 UNV Vancomycin HCl 1 gm/Sodium Chloride 250 ml @ 250 mls/hr 1X ONCE 06/18/18 09:15 06/18/18 10:14 UNV Allergies Allergies Allergies Coded Allergies Type Severity Reaction Last Updated Verified No Known Drug Allergies 02/15/17 No Physical Exam Physical Exam Constitutional: Moderate distress, non-toxic appearance, rectal temperature of 103. [] HENT: Normocephalic, facial contusion and ecchymosis, dry oral mucosa Eyes: PERRLA, EOMI, conjunctiva normal, no discharge. [] Neck: Normal range of motion, no tenderness, supple, no stridor. [] Cardiovascular: Tachycardia, no murmur [] Lungs & Thorax: Bilateral breath sounds clear to auscultation [] Abdomen: Bowel sounds normal, soft, no tenderness, no masses, no pulsatile masses. [] Skin: Warm, dry, no erythema, no rash. [] Back: No tenderness, no CVA tenderness. [] Extremities: No tenderness, no cyanosis, no clubbing, ROM intact, no edema. [] Neurologic: Alert and oriented X 1, normal motor function, normal sensory function, no focal deficits noted. [] Psychologic: Unable to evaluate Current Patient Data Lab Results Laboratory Tests Test 06/18/18 09:00 White Blood Count 33.1 x10^3/uL (4.0-11.0) H Red Blood Count 4.53 x10^6/uL (4.30-5.70) Hemoglobin 13.6 g/dL (13.0-17.5) Hematocrit 39.7 % (39.0-53.0) Mean Corpuscular Volume 88 fL (79-100) Mean Corpuscular Hemoglobin 30 pg (25-35) Mean Corpuscular Hemoglobin Concent 34 g/dL (31-37) Red Cell Distribution Width 12.6 % (11.5-14.5) Platelet Count 366 x10^3/uL (140-400) Neutrophils (%) (Auto) 85 % (31-73) H Lymphocytes (%) (Auto) 5 % (24-48) L Monocytes (%) (Auto) 10 % (0-9) H Eosinophils (%) (Auto) 0 % (0-3) Basophils (%) (Auto) 1 % (0-3) Neutrophils # (Auto) 28.0 x10^3uL (1.8-7.7) H Lymphocytes # (Auto) 1.6 x10^3/uL (1.0-4.8) Monocytes # (Auto) 3.3 x10^3/uL (0.0-1.1) H Eosinophils # (Auto) 0.0 x10^3/uL (0.0-0.7) Basophils # (Auto) 0.2 x10^3/uL (0.0-0.2) Platelet Estimate Pending Prothrombin Time 10.6 SEC (9.4-11.4) Prothrombin Time INR 1.1 (0.9-1.1) PTT 26 SEC (23-33) Sodium Level 140 mmol/L (136-145) Potassium Level 3.3 mmol/L (3.5-5.1) L Chloride Level 103 mmol/L (98-107) Carbon Dioxide Level 25 mmol/L (21-32) Anion Gap 12 (6-14) Blood Urea Nitrogen 25 mg/dL (8-26) Creatinine 1.4 mg/dL (0.7-1.3) H Estimated GFR (Cockcroft-Gault) 49.1 BUN/Creatinine Ratio 18 (6-20) Glucose Level 322 mg/dL (70-99) H Lactic Acid Level 1.6 mmol/L (0.4-2.0) Calcium Level 8.9 mg/dL (8.5-10.1) Magnesium Level 1.7 mg/dL (1.8-2.4) L Total Bilirubin 1.9 mg/dL (0.2-1.0) H Aspartate Amino Transferase (AST) 15 U/L (15-37) Alanine Aminotransferase (ALT) 16 U/L (16-63) Alkaline Phosphatase 102 U/L (46-116) Creatine Kinase 99 U/L (39-308) Creatine Kinase MB (Mass) < 0.5 ng/mL (0.0-3.6) Creatine Kinase MB Relative Index 0.5 % (0-4) Troponin I Quantitative 0.675 ng/mL (0-0.055) H KU-Vxt-E-Type Natriuretic Peptide 2173 pg/mL (0-449) H Total Protein 7.0 g/dL (6.4-8.2) Albumin 3.1 g/dL (3.4-5.0) L Albumin/Globulin Ratio 0.8 (1.0-1.7) L EKG EKG EKG interpreted by me. EKG at 0 851 showed sinus tachycardia at rate of 114, right superior axis deviation, Q waves in inferior leads, no acute ST and T- wave abnormalities.[] Radiology/Procedures Radiology/Procedures [[address] [address] IMAGING REPORT Signed PATIENT: MICK VALDOVINOS ACCOUNT: [id number] : 1940 LOCATION: ER AGE: 78 SEX: M EXAM STATUS: REG ER ORD. PHYSICIAN: CHAVEZ LONDON MD REASON: altered level of consciousness PROCEDURE: CT HEAD WO CONTRAST CT HEAD WO CONTRAST History: Altered level of consciousness Comparison: February 14, 2017 Technique: Noncontrast CT imaging was performed of the head. Exposure: One or more of the following individualized dose reduction techniques were utilized for this examination: 1. Automated exposure control 2. Adjustment of the mA and/or kV according to patient size 3. Use of iterative reconstruction technique. Findings: No acute extra-axial or parenchymal hemorrhage is identified. There is no significant intra-axial mass effect, midline shift, or extra-axial fluid collection. The espinal-white differentiation of the major vascular territories is preserved. Ventricular size is fairly proportionate to the sulcal spaces, mild third and lateral ventriculomegaly. Size of ventricles is similar. There is generalized supratentorial atrophy. The mastoid air cells and the visualized paranasal sinuses are aerated. No acute calvarial abnormality is identified. Impression: 1. No acute intracranial abnormality is identified. There is generalized supratentorial atrophy. There is ventriculomegaly although probably due to atrophy. Electronically signed by: Gianluca Mari MD (06/18/2018 9:29 AM) [id number] DICTATED AND SIGNED BY: GIANLUCA MARI MD DATE: 06/18/18926 CC: ODELL CHRISTINE APRN; CHAVEZ LONDON MD ~ ] Course & Med Decision Making Course & Med Decision Making Pertinent Labs and Imaging studies reviewed. (See chart for details) Evaluation of patient in ER showed 78-year-old male patient brought in because of altered level of consciousness. Patient was febrile with tachycardia and dehydration and confusion and code sepsis was activated and patient treated with IV fluid and Zosyn and vancomycin with improvement of his condition. Patient had elevation of troponin and plan to repeat serial troponin. Lactic acid was less than 2. Dr. Hollis accepted admission at 0925. [] Dragon Disclaimer Dragon Disclaimer This electronic medical record was generated, in whole or in part, using a voice recognition dictation system. Departure Departure: Impression: Primary Impression: Acute sepsis Additional Impressions: Altered level of consciousness Elevated troponin Hypokalemia Leukocytosis Renal insufficiency Hyperglycemia Facial contusion History of fall Uncontrolled diabetes mellitus Elevated bilirubin Hypomagnesemia Disposition: 09 ADMITTED INPATIENT (at 0 927) Admitting Physician: Nguyễn Hollis (Accepted admission at 0926) Condition: GUARDED Referrals: ODELL CHRISTINE APRN (PCP) Critical Care Time Critical care time was 80 minutes exclusive of procedures. Problem Qualifiers CHAVEZ LONDON MD Jun 18, 2018 09:53
[2018-06-18] MEDS ORDERED: VANCOMYCIN 1 GM in IV NORMAL SALINE 250ML 250 ML IV ONE ×2 (10:00→11:30)
[2018-06-18 10:03] LABS: % BANDS 6 % (0-9); % SEGS 76 % (35-66)
[2018-06-18 10:06] LABS: % ATYL 2 % (0-0); % BASOS 0 % (0-3); % EOS 0 % (0-5); % LYMPHS 6 % (24-48); % MONOS 10 % (0-10); PLT ESTIMATE ADEQUATE (ADEQUATE)
[2018-06-18] MEDS ORDERED: IV NORMAL SALINE 250ML 250 ML ONE (10:10)
[2018-06-18] MEDS ORDERED: VANCOMYCIN 1 GM VIAL. ONE (10:10)
[2018-06-18] MEDS: IV NORMAL SALINE 1,000ML 1,000 ML IV SCH ×3 (10:16→23:13)
[2018-06-18 10:24] LABS: CLARITY,URINE CLOUDY; COLOR,URINE YELLOW; GLUCOSE,URINE >=1000 mg/dL (NEG)
[2018-06-18 10:25] LABS: AMORPHOUS SEDIMENT,UR PRESENT /HPF; BACTERIA,URINE MOD /HPF (0-FEW); BILIRUBIN,URINE NEG (NEG); HYALINE CASTS, URINE OCC /HPF; NITRITE,URINE NEG (NEG); RBC,URINE 0 /HPF (0-2); UROBILINOGEN,URINE 0.2 mg/dL (0.2 mg/dL)
--- NOTE | 2018-06-18 10:33 | RAD ---
EXAM: Chest, single view. HISTORY: Altered mental status. COMPARISON: 02/23/2017. FINDINGS: A frontal view of the chest is obtained. There is no infiltrate, pleural effusion or pneumothorax. The heart is normal in size. IMPRESSION: No acute pulmonary finding. Electronically signed by: Aniya Hunt MD (06/18/2018 10:30 AM) [facility]
[2018-06-18] MEDS ORDERED: POTASSIUM CHLORIDE 20MEQ 100 ML IV SCH (11:45)
[2018-06-18] MEDS ORDERED: POTASSIUM CHLORIDE 10MEQ 100 ML IV SCH (13:00)
[2018-06-18] MEDS ORDERED: ASPI81TA59 PO (13:29)
[2018-06-18] MEDS ORDERED: DEXTROSE 50% 25 GM / 50ML DISP.SYRIN. IV PRN (13:30)
[2018-06-18] MEDS ORDERED: MAGNESIUM SULFATE 2GM 50 ML IV SCH ×2 (14:00→16:00)
[2018-06-18] MEDS ORDERED: POTASSIUM CL 40MEQ IN 0.9%NACL 1,000 ML IV SCH (14:00)
[2018-06-18] MEDS: ACETAMINOPHEN 650 MG/20.3 ML SOLUTION. PO PRN (14:47)
[2018-06-18 15:59] LABS: CREATININE 1.2 mg/dL (0.7-1.3); GFR 58.7; POTASSIUM 3.3 mmol/L (3.5-5.1)
[2018-06-18] MEDS: PIPERACILLIN/TAZOBACTAM 3.375 GM in IV NORMAL SALINE 50ML 50 ML IV SCH ×2 (16:39→21:15)
--- NOTE | 2018-06-18 16:45 | HP ---
ADMIT DATE: 06/18/2018 HISTORY OF PRESENT ILLNESS: The patient is a 78-year-old male patient, who apparently was brought to the Emergency Room by his stepson with altered mental status. The patient apparently is demented and does not really give any useful information. He was extensively evaluated as he has multiple bruises on his altman and both knees. In the Emergency Room, he was found to be febrile. His temperature was 103 degree Fahrenheit rectally. His lab work showed that his white cell count was 33,000. His blood sugar was high at 322 with hypokalemia. His first set of troponin was high at 0.675 and the patient was admitted to the ICU with sepsis. His chest x-ray was unremarkable; however, his urinalysis also showed the urine was yellow, cloudy, but there was only 1-4 wbc's, moderate amount of bacteria and was admitted with sepsis due to urinary tract infection, poorly controlled type 2 diabetes as well as hypokalemia and hypomagnesemia. He apparently had also a fall manifested by the deep bruise and abrasions on his knees and altman. PAST MEDICAL HISTORY: Significant for type 2 diabetes. We could not get any further information on him as his stepson said that he gets all his care from the [facility]. The patient himself is very demented and does not give any useful information. PAST SURGICAL HISTORY: Also unobtainable. ALLERGIES: He has no known drug allergies. MEDICATIONS: Currently, he is on aspirin and Levemir insulin 7 units subcutaneously twice a day. He is in some other medication that his stepson does not know and we are contacting the [facility] to find a list of his medication. FAMILY HISTORY: Unobtainable. SOCIAL HISTORY: He is . He lives with his and his stepson. He stated that he has never smoked, does not drink alcohol. I could not elaborate more. REVIEW OF SYSTEMS: Again, he denied any chest pain or shortness of breath. PHYSICAL EXAMINATION: GENERAL: On arrival to the Emergency Room, he was somewhat pale, but no jaundice, cyanosis, or thyromegaly. No jugular venous distension. No lower limb edema. VITAL SIGNS: His heart rate was 112, blood pressure was 118/61, temperature was 103, respiratory rate was 24, and oxygen saturation was 95% on room air. HEAD: Showed normocephalic, atraumatic. NECK: Supple. HEART: Showed normal first and second heart sounds with no gallop, rub or murmur. CHEST: Clear to auscultation. No crepitation or rhonchi. ABDOMEN: Distended, soft, nontender. No guarding or rigidity. No organomegaly. All hernial orifice intact. Bowel sounds normal. NEUROLOGIC: He is awake, alert, but very confused, disoriented, does give any useful information; however, all his cranial nerves are grossly intact. He moves upper extremities to much good extent than his lower extremities. LABORATORY DATA: On admission showed that his white cell count was 33,100, hemoglobin 13.6, hematocrit 39.7, MCV 88, and platelet count 366,000 with a manual differential showed 85% polymorphs, 5% lymphocytes, and 10% monocytes. His prothrombin time was 10.6, INR 1.1, aPTT was 26. His chemistry showed a serum sodium 140, potassium 3.3, chloride 103, bicarbonate 25, anion gap of 12, BUN 25, creatinine 1.4, estimated GFR was 49 mL per minute. His glucose was 322, calcium was 8.9, lactic acid was 1.6, magnesium was 1.7. Total bilirubin 1.9. AST, ALT, alkaline phosphatase were normal. His troponin was 0.675. His beta natriuretic peptide was 2173. Total protein was 7, albumin was 3.1. His urinalysis showed the urine was yellow, cloudy with a pH of 5.5, specific gravity of 1.020. There was large amount of protein, large amount of glucose, trace amount of ketones, and there was trace amount of blood, negative for nitrite, negative for bilirubin, negative leukocyte esterase. There were 0 rbc's, 1-4 wbc's. There was moderate amount of urine bacteria. His chest x-ray showed that there is no infiltrate, pleural effusion, or pneumothorax. The heart is normal in size and CT scan of the head showed that there is no acute extraaxial or parenchymal hemorrhage is identified. There is no significant intraaxial mass effect, midline shift or extraaxial fluid collection. The espinal-white differentiation of the major vascular territories is preserved. Ventricular size is fairly proportionate to the sulcal spaces with ventriculomegaly. Size of ventricle is similar. There is generalized supratentorial atrophy. The mastoid air cells and the visualized paranasal sinuses are aerated. No acute calvarial abnormalities identified. IMPRESSION: The patient was admitted with sepsis due to urinary tract infection. He has also poorly controlled type 2 diabetes, acute on chronic renal failure. His creatinine is 1.4. He has also hypokalemia and hypomagnesemia. PLAN: To continue with IV fluid, continue to monitor his blood sugar and adjust insulin as needed. He was given a gram of magnesium sulfate. Continue with IV fluid and potassium, and continue with vancomycin and Zosyn as once we have the urine and blood culture, we will deescalate the antibiotics probably. PROMISE OLSEN MD DR: SOHAN/laura JOB#: [id number] / [id number]
[2018-06-18] MEDS: INSULIN LISPRO 300 UNITS/3 ML INSULN.PEN. SQ SCH (16:51)
[2018-06-18] MEDS: VANCOMYCIN PER PHARMACY MC PRN (17:16)
[2018-06-18] MEDS: VANCOMYCIN 1.25 GM in IV NORMAL SALINE 250ML 250 ML IV SCH (19:26)
[2018-06-19] VITALS (18 sets, daily range): BP systolic 97–143; BP diastolic 48–72
[2018-06-19] MEDS: PIPERACILLIN/TAZOBACTAM 3.375 GM in IV NORMAL SALINE 50ML 50 ML IV SCH ×3 (05:31→22:44)
[2018-06-19] MEDS: IV NORMAL SALINE 1,000ML 1,000 ML IV SCH ×2 (05:32→20:15)
[2018-06-19 07:53] LABS: HEMATOCRIT 34.4 % (39.0-53.0); HEMOGLOBIN 11.4 g/dL (13.0-17.5); RED BLOOD COUNT 3.86 x10^6/uL (4.30-5.70); RED CELL DISTRIBUTION WIDTH 12.4 % (11.5-14.5); WHITE BLOOD COUNT 28.8 x10^3/uL (4.0-11.0)
[2018-06-19 08:08] LABS: ALBUMIN 2.2 g/dL (3.4-5.0); ALBUMIN/GLOBULIN RATIO 0.7 (1.0-1.7); CALCIUM 7.6 mg/dL (8.5-10.1); CREATININE 1.1 mg/dL (0.7-1.3); GFR 64.9; POTASSIUM 3.7 mmol/L (3.5-5.1); TOTAL BILIRUBIN 2.1 mg/dL (0.2-1.0); TOTAL PROTEIN 5.5 g/dL (6.4-8.2)
[2018-06-19] MEDS: INSULIN LISPRO 300 UNITS/3 ML INSULN.PEN. SQ SCH ×3 (08:48→17:00)
[2018-06-19] MEDS ORDERED: MAGNESIUM SULFATE 2GM 50 ML IV SCH (09:00)
[2018-06-19] MEDS: METOPROLOL TART IMMED RELEASE 25 MG TABLET PO SCH ×2 (10:49→22:44)
[2018-06-19] MEDS: ASPIRIN ENTERIC COATED 325 MG TABLET.DR. PO SCH (10:49)
--- NOTE | 2018-06-19 14:38 | PDOC2 ---
CONSULT Date of Admission DATE: 06/19/18 Consult date TIME: 829 Problem List Problems Medical Problems: (1) Acute sepsis Status: Acute (2) Altered level of consciousness Status: Acute (3) Elevated bilirubin Status: Acute (4) Elevated troponin Status: Acute (5) Facial contusion Status: Acute (6) History of fall Status: Acute (7) Hyperglycemia Status: Acute (8) Hypokalemia Status: Acute (9) Hypomagnesemia Status: Acute (10) Leukocytosis Status: Acute (11) Renal insufficiency Status: Acute (12) Uncontrolled diabetes mellitus Status: Acute History of Present Illness The patient is a 78-year-old male presenting to the ED with altered mental status. He apparently found by his stepson unresponsive this morning after a couple days of being less active. EMS was called for transport to the hospital. He has a history of dementia, frequent falls with a [facility]. He was observed to have multiple contusions including on his altman, both knees, chin and face. He was noted to have an elevated troponin so consult was called. He was also noted to be febrile with WBC elevation and moderate bacteria in his urine. He was admitted for evaluation and management. He is currently resting quietly without complaint. The majority of history obtained from chart due to his dementia. Past Medical History PAST MEDICAL HISTORY: Significant for type 2 diabetes. We could not get any further information on him as his stepson said that he gets all his care from the [facility]. The patient himself is very demented and does not give any useful information. Past Surgical History skin cancer removal Family History Unknown Social History He is and lives at home with and a stepson. He is a non smoker and does not consume alcohol or use drugs. Current Medications Current Medications Sodium Chloride 1,000 ml @ 1,000 mls/hr Q1H IV Last administered on 06/18/18at 09:41; Start 06/18/18 at 08:41; Stop 06/18/18 at 09:40; Status DC Acetaminophen (Tylenol Supp) 650 mg 1X ONCE NV Last administered on 06/18/18at 09:40; Start 06/18/18 at 09:30; Stop 06/18/18 at 09:31; Status DC Piperacillin Sod/ Tazobactam Sod 3.375 gm/Sodium Chloride 50 ml @ 100 mls/hr 1X ONCE IV Last administered on 06/18/18at 09:40; Start 06/18/18 at 09:45; Stop 06/18/18 at 10:14; Status DC Vancomycin HCl 1 gm/Sodium Chloride 250 ml @ 250 mls/hr 1X ONCE IV Last administered on 06/18/18at 10:13; Start 06/18/18 at 10:00; Stop 06/18/18 at 10:59 ; Status DC Sodium Chloride 50 ml @ As Directed STK-MED ONCE .ROUTE ; Start 06/18/18 at 09: 26; Stop 06/18/18 at 09:27; Status DC Piperacillin Sod/ Tazobactam Sod (Zosyn) 3.375 gm STK-MED ONCE IV ; Start at 09:26; Stop 06/18/18 at 09:27; Status DC Acetaminophen (Tylenol Supp) 650 mg 1X ONCE NV Last administered on 06/18/18at 09:41; Start 06/18/18 at 10:00; Stop 06/18/18 at 10:01; Status DC Sodium Chloride 50 ml @ As Directed STK-MED ONCE .ROUTE ; Start 06/18/18 at 09: 37; Stop 06/18/18 at 09:38; Status DC Piperacillin Sod/ Tazobactam Sod (Zosyn) 3.375 gm STK-MED ONCE IV ; Start at 09:37; Stop 06/18/18 at 09:38; Status DC Sodium Chloride 1,000 ml @ 150 mls/hr Q6H40M IV Last administered on at 05:32; Start 06/18/18 at 09:42; Stop 06/19/18 at 09:41; Status DC Sodium Chloride 250 ml @ As Directed STK-MED ONCE .ROUTE ; Start 06/18/18 at 10 :10; Stop 06/18/18 at 10:11; Status DC Vancomycin HCl (Vancomycin) 1 gm STK-MED ONCE .ROUTE ; Start 06/18/18 at 10:10; Stop 06/18/18 at 10:11; Status DC Vancomycin HCl 1 gm/Sodium Chloride 250 ml @ 250 mls/hr 1X ONCE IV ; Start at 11:30; Stop 06/18/18 at 12:29; Status DC Potassium Chloride 100 ml @ 25 mls/hr Q2H IV ; Start 06/18/18 at 11:45; Stop at 11:47; Status DC Magnesium Sulfate 50 ml @ 50 mls/hr DAILY IV ; Start 06/19/18 at 09:00; Stop at 09:00; Status DC Potassium Chloride 100 ml @ 100 mls/hr Q1H IV ; Start 06/18/18 at 13:00; Stop 06/18/18 at 13:00; Status DC Magnesium Sulfate 50 ml @ 25 mls/hr DAILY IV Last administered on 06/18/18at 13: 55; Start 06/18/18 at 14:00; Stop 06/18/18 at 15:59; Status DC Magnesium Sulfate 50 ml @ 25 mls/hr DAILYBFRLUN IV Last administered on at 16:11; Start 06/18/18 at 16:00; Stop 06/18/18 at 17:59; Status DC Potassium Chloride/Sodium Chloride 1,000 ml @ 150 mls/hr Q6H40M IV Last administered on 06/18/18at 13:54; Start 06/18/18 at 14:00; Stop 06/18/18 at 20:39 ; Status DC Insulin Human Lispro (HumaLOG) 0-7 UNITS TIDWMEALS SQ ; Start 06/18/18 at 17:00 Dextrose 12.5 gm PRN Q15MIN PRN IV SEE COMMENTS; Start 06/18/18 at 13:30 Acetaminophen (Tylenol Oral Soln) 650 mg PRN Q6HRS PRN PO PAIN / TEMP Last administered on 06/18/18at 14:47; Start 06/18/18 at 14:15 Vancomycin HCl (Vanco Per Pharmacy) 1 each PRN DAILY PRN MC SEE COMMENTS Last administered on 06/18/18at 17:16; Start 06/18/18 at 15:30 Piperacillin Sod/ Tazobactam Sod 3.375 gm/Sodium Chloride 50 ml @ 100 mls/hr Q8HRS IV Last administered on 06/19/18at 14:15; Start 06/18/18 at 16:00 Vancomycin HCl 1.25 gm/Sodium Chloride 250 ml @ 167 mls/hr Q24H IV Last administered on 06/18/18at 19:26; Start 06/18/18 at 20:00 Vancomycin HCl (Vancomycin Trough Level) 1 each 1X ONCE MC ; Start 06/20/18 at 19:30; Stop 06/20/18 at 19:31 Metoprolol Tartrate (Lopressor) 25 mg BID PO ; Start 06/19/18 at 09:00 Aspirin (Aspirin Enteric Coated) 325 mg DAILYWBKFT PO ; Start 06/19/18 at 09:00 Active Scripts Active Reported Children's Aspirin (Aspirin) 81 Mg Tab.chew 81 Mg PO DAILY Levemir (Insulin Detemir) 100 Unit/1 Ml Vial 7 Unit SQ BID Allergies: Coded Allergies: No Known Drug Allergies (Unverified , 02/15/17) Review of System unobtainable due to mental status General: No acute distress, Other (sleepy) Lungs: Clear to auscultation Heart: Normal S1, Normal S2, Other (no gallops, clicks or rubs) Abdomen: Normal bowel sounds, Soft, No tenderness Extremities: No cyanosis, Normal pulses Psych/Mental Status: Other (baseline dementia) VITALS Vital Signs Date Time Temp Pulse Resp B/P (MAP) Pulse Ox O2 Delivery O2 Flow Rate FiO2 06/19/18 13:57 84 21 132/63 (86) Room Air 06/19/18 10:27 95 06/19/18 05:54 97.9 Labs Laboratory Tests Test 06/18/18 09:00 06/18/18 10:07 06/18/18 11:39 06/18/18 12:48 White Blood Count 33.1 x10^3/uL (4.0-11.0) Red Blood Count 4.53 x10^6/uL (4.30-5.70) Hemoglobin 13.6 g/dL (13.0-17.5) Hematocrit 39.7 % (39.0-53.0) Mean Corpuscular Volume 88 fL (79-100) Mean Corpuscular Hemoglobin 30 pg (25-35) Mean Corpuscular Hemoglobin Concent 34 g/dL (31-37) Red Cell Distribution Width 12.6 % (11.5-14.5) Platelet Count 366 x10^3/uL (140-400) Neutrophils (%) (Auto) 85 % (31-73) Lymphocytes (%) (Auto) 5 % (24-48) Monocytes (%) (Auto) 10 % (0-9) Eosinophils (%) (Auto) 0 % (0-3) Basophils (%) (Auto) 1 % (0-3) Neutrophils # (Auto) 28.0 x10^3uL (1.8-7.7) Lymphocytes # (Auto) 1.6 x10^3/uL (1.0-4.8) Monocytes # (Auto) 3.3 x10^3/uL (0.0-1.1) Eosinophils # (Auto) 0.0 x10^3/uL (0.0-0.7) Basophils # (Auto) 0.2 x10^3/uL (0.0-0.2) Segmented Neutrophils % 76 % (35-66) Band Neutrophils % 6 % (0-9) Lymphocytes % 6 % (24-48) Atypical Lymphocytes % (Manual) 2 % (0-0) Monocytes % 10 % (0-10) Eosinophils % 0 % (0-5) Basophils % 0 % (0-3) Platelet Estimate Adequate (ADEQUATE) Prothrombin Time 10.6 SEC (9.4-11.4) Prothromb Time International Ratio 1.1 (0.9-1.1) Activated Partial Thromboplast Time 26 SEC (23-33) Sodium Level 140 mmol/L (136-145) Potassium Level 3.3 mmol/L (3.5-5.1) Chloride Level 103 mmol/L (98-107) Carbon Dioxide Level 25 mmol/L (21-32) Anion Gap 12 (6-14) Blood Urea Nitrogen 25 mg/dL (8-26) Creatinine 1.4 mg/dL (0.7-1.3) Estimated GFR (Cockcroft-Gault) 49.1 BUN/Creatinine Ratio 18 (6-20) Glucose Level 322 mg/dL (70-99) Lactic Acid Level 1.6 mmol/L (0.4-2.0) 2.0 mmol/L (0.4-2.0) Calcium Level 8.9 mg/dL (8.5-10.1) Magnesium Level 1.7 mg/dL (1.8-2.4) Total Bilirubin 1.9 mg/dL (0.2-1.0) Aspartate Amino Transf (AST/SGOT) 15 U/L (15-37) Alanine Aminotransferase (ALT/SGPT) 16 U/L (16-63) Alkaline Phosphatase 102 U/L (46-116) Creatine Kinase 99 U/L (39-308) Creatine Kinase MB (Mass) < 0.5 ng/mL (0.0-3.6) Creatine Kinase MB Relative Index 0.5 % (0-4) Troponin I Quantitative 0.675 ng/mL (0-0.055) 0.505 ng/mL (0-0.055) YV-Wav-F-Type Natriuretic Peptide 2173 pg/mL (0-449) Total Protein 7.0 g/dL (6.4-8.2) Albumin 3.1 g/dL (3.4-5.0) Albumin/Globulin Ratio 0.8 (1.0-1.7) Urine Collection Type U cath Urine Color Yellow Urine Clarity Cloudy Urine pH 5.5 Urine Specific [place] 1.020 Urine Protein 100 mg/dl (NEG-TRACE) Urine Glucose (UA) >=1000 mg/dL (NEG) Urine Ketones (Stick) 15 mg/dL (NEG) Urine Blood Trace (NEG) Urine Nitrite Neg (NEG) Urine Bilirubin Neg (NEG) Urine Urobilinogen Dipstick 0.2 mg/dL (0.2 mg/dL) Urine Leukocyte Esterase Neg (NEG) Urine RBC 0 /HPF (0-2) Urine WBC 1-4 /HPF (0-4) Urine Squamous Epithelial Cells None /LPF Urine Amorphous Sediment Present /HPF Urine Bacteria Mod /HPF (0-FEW) Urine Hyaline Casts Occ /HPF Urine Mucus Mod /LPF Test 06/18/18 14:50 06/18/18 15:40 06/18/18 21:57 06/19/18 07:47 Nasal Screen MRSA (PCR) Negative (Negative) Sodium Level 143 mmol/L (136-145) 144 mmol/L (136-145) Potassium Level 3.3 mmol/L (3.5-5.1) 3.7 mmol/L (3.5-5.1) Chloride Level 109 mmol/L (98-107) 110 mmol/L (98-107) Carbon Dioxide Level 25 mmol/L (21-32) 25 mmol/L (21-32) Anion Gap 9 (6-14) 9 (6-14) Blood Urea Nitrogen 24 mg/dL (8-26) 18 mg/dL (8-26) Creatinine 1.2 mg/dL (0.7-1.3) 1.1 mg/dL (0.7-1.3) Estimated GFR (Cockcroft-Gault) 58.7 64.9 Glucose Level 268 mg/dL (70-99) 174 mg/dL (70-99) Lactic Acid Level 1.6 mmol/L (0.4-2.0) Calcium Level 8.0 mg/dL (8.5-10.1) 7.6 mg/dL (8.5-10.1) Troponin I Quantitative 0.355 ng/mL (0-0.055) Glucose (Fingerstick) 183 mg/dL (70-99) White Blood Count 28.8 x10^3/uL (4.0-11.0) Red Blood Count 3.86 x10^6/uL (4.30-5.70) Hemoglobin 11.4 g/dL (13.0-17.5) Hematocrit 34.4 % (39.0-53.0) Mean Corpuscular Volume 89 fL (79-100) Mean Corpuscular Hemoglobin 30 pg (25-35) Mean Corpuscular Hemoglobin Concent 33 g/dL (31-37) Red Cell Distribution Width 12.4 % (11.5-14.5) Platelet Count 315 x10^3/uL (140-400) BUN/Creatinine Ratio 16 (6-20) Magnesium Level 2.0 mg/dL (1.8-2.4) Total Bilirubin 2.1 mg/dL (0.2-1.0) Aspartate Amino Transf (AST/SGOT) 26 U/L (15-37) Alanine Aminotransferase (ALT/SGPT) 15 U/L (16-63) Alkaline Phosphatase 75 U/L (46-116) Creatine Kinase 577 U/L (39-308) Total Protein 5.5 g/dL (6.4-8.2) Albumin 2.2 g/dL (3.4-5.0) Albumin/Globulin Ratio 0.7 (1.0-1.7) Triglycerides Level 109 mg/dL (0-150) Cholesterol Level 92 mg/dL (0-200) LDL Cholesterol, Calculated 48 mg/dL (0-100) VLDL Cholesterol, Calculated 21 mg/dL (0-40) Non-HDL Cholesterol Calculated 69 mg/dL (0-129) HDL Cholesterol 23 mg/dL (40-60) Cholesterol/HDL Ratio 4.0 Test 06/19/18 12:02 Glucose (Fingerstick) 156 mg/dL (70-99) Images CXR - no acute abn EKG -Sinus tachycardia, IWMI age undetermined. Assessment/Plan 1. NSTEMI in the setting of urosepsis - add beta blockers, aspirin. Check echo for LV function and continue supportive care. Currently angina free. Poor candidate for any invasive evaluation due to sepsis and baseline dementia however may reassess when sepsis resolved. 2. Urosepsis - per PCP 3. hypertension - currently controlled 4. hyperlipidemia - check lipids and add statin as indicated. Currently no further recommendations, await echo results. MERRY MCCARTY [employer]SEL[employer] Jun 19, 2018 14:38
--- NOTE | 2018-06-19 16:44 | CARD ---
MR#: [id number] Date of Study: 06/19/2018 Ordering Physician: MERRY MCCARTY, Referring Physician: PROMISE OLSEN Tech: SHAJI Crockett APPROVED REPORT EXAM: Two-dimensional and M-mode echocardiogram with Doppler and color Doppler. Other Information Quality : PoorHR: 91bpm Technically limited study due to body habitus patient confused. INDICATION Elevated Troponin 2D DIMENSIONS RVDd3.5 (2.9-3.5cm)IVSd1.4 (0.7-1.1cm) LVDd4.2 (3.9-5.9cm)LVOT Diameter2.3 (1.8-2.4cm) PWd1.5 (0.7-1.1cm)LVDs2.9 (2.5-4.0cm) FS (%) 32.7 %SV49.5 ml Aortic Valve AoV Peak Brant.83.5cm/sAoV VTI20.0cm AO Peak GR.2.8mmHgLVOT Peak Brant.99.9cm/s LVOT VTI 21.07cmAO Mean GR.2mmHg JULIETTE (VMAX)4.04lm6EGY (VTI)4.29cm2 Mitral Valve MV E Fdflzfrf095.8cm/sMV E Peak Gr.77mmHg MV DECEL [id number] A Velocity0.2cm/s E/A [id number] LEFT VENTRICLE The left ventricle is normal size. There is mild concentric left ventricular hypertrophy. The left ve ntricular systolic function is normal. Left ventricular ejection fraction is 55-60%. There is normal LV segmental wall motion. Transmitral Doppler flow pattern is Grade I-abnormal relaxation pattern. RIGHT VENTRICLE The right ventricle is borderline dilated. The right ventricular systolic function is normal. ATRIA Visually estimated to be normal size. Visually estimated to be normal size. Interatrial septum not we ll visualized. AORTIC VALVE The aortic valve is mildly thickened but opens well. Doppler and Color Flow revealed trace aortic reg urgitation. There is no significant aortic valvular stenosis. There is no aortic valvular vegetation. MITRAL VALVE The mitral valve is mildly thickened. Mitral annular calcification is mild. There is no evidence of m itral valve prolapse. There is no mitral valve stenosis. Doppler and Color-flow revealed mild mitral regurgitation. TRICUSPID VALVE The tricuspid valve is not well visualized. Doppler and Color Flow revealed no tricuspid valve regurg itation noted. There is no tricuspid valve stenosis. PULMONIC VALVE The pulmonic valve is not well visualized. Doppler and Color Flow revealed no pulmonic valvular regur gitation. There is no pulmonic valvular stenosis. GREAT VESSELS The aortic root is normal in size. The IVC was not visualized. PERICARDIAL EFFUSION There is no pleural effusion. There is no evidence of significant pericardial effusion. Critical Notification Critical Value: No <Conclusion> The left ventricle is normal size. The left ventricular systolic function is normal. Left ventricular ejection fraction is 55-60%. There is mild concentric left ventricular hypertrophy. There is no significant aortic valvular stenosis. Doppler and Color Flow revealed trace aortic regurgitation. Doppler and Color-flow revealed mild mitral regurgitation. Doppler and Color Flow revealed no tricuspid valve regurgitation noted. Signed by : Alexi Heredia MD Electronically Approved : 06/19/2018 16:43:09
[2018-06-19] MEDS: VANCOMYCIN 1.25 GM in IV NORMAL SALINE 250ML 250 ML IV SCH (20:13)
--- NOTE | 2018-06-19 23:13 | PN ---
DATE: 06/19/2018 SUBJECTIVE: The patient is resting, slightly propped up in bed, in no apparent distress. He is definitely more awake, alert, although obviously continued to be confused. On questioning him, he denied any pain, shortness of breath. OBJECTIVE: GENERAL: When I examined him, he looked pale, somewhat jaundiced, but no cyanosis. No lymphadenopathy, no thyromegaly. No jugular venous distention. No limb edema. VITAL SIGNS: His heart rate was 96, blood pressure was 110/54, temperature was 98.7, respiratory rate was 18 and oxygen saturation was 94%. HEAD, EYES, EARS, NOSE AND THROAT: Showed he is normocephalic, atraumatic. Does have some bruises on the side of face and his chin. NECK: Supple. HEART: Showed normal first and second sounds. No gallop, rub or murmur. CHEST: Clear to auscultation. No crepitation or rhonchi. ABDOMEN: Slightly distended, soft, nontender. NEUROLOGIC: He is demented, but without any obvious lateralizing sign. All his cranial nerves are intact. He moves extremities without difficulty, though he is mostly bedbound. His intake over the last 24 hours was 2500, output was 1925. LABORATORY DATA: His lab work this morning showed a serum sodium 144, potassium 3.7, chloride 110, bicarbonate 25, anion gap of 9, BUN 18, creatinine 1.1. Estimated GFR was 65 mL per minute. His blood sugar was 174, calcium was 7.6, magnesium 2, bilirubin 2.1. Total bilirubin, AST, ALT were normal as well as alkaline phosphatase. His CK was high at 577. Total protein was 5.5, albumin was 2.2. He did have 3 sets of cardiac enzymes, which showed troponin to be elevated though trending downward for which we did consult the drafting detailer. ASSESSMENT: Sepsis without any obvious source for which we pancultured him. He is now on vancomycin and Zosyn. His white cell count is trending down from 33,000 to 28,000. Acute kidney injury also improving. His creatinine is coming down from 1.4 to 1.1, type 2 diabetes for which he is on insulin sliding scale. Other medical problems include advanced neurocognitive impairment. Hypokalemia has improved. We will continue with IV fluid, IV antibiotic. Obviously, we will deescalate the antibiotic once the organism is identified and sensitivity is known. PROMISE OLSEN MD DR: SOHAN/laura JOB#: [id number] / [id number]
[2018-06-20] VITALS (12 sets, daily range): BP systolic 121–160; BP diastolic 56–105
[2018-06-20] MEDS: IV NORMAL SALINE 1,000ML 1,000 ML IV SCH ×2 (02:49→09:35)
[2018-06-20] MEDS: PIPERACILLIN/TAZOBACTAM 3.375 GM in IV NORMAL SALINE 50ML 50 ML IV SCH ×3 (05:41→22:48)
[2018-06-20 06:17] LABS: BASO # 0.1 x10^3/uL (0.0-0.2); BASO % 0 % (0-3); EOS # 0.2 x10^3/uL (0.0-0.7); EOS % 1 % (0-3); HEMATOCRIT 36.1 % (39.0-53.0); HEMOGLOBIN 12.1 g/dL (13.0-17.5); LYMPH # 1.9 x10^3/uL (1.0-4.8); LYMPH % 7 % (24-48); MEAN CORPUSCULAR HEMOGLOBIN 30 pg (25-35); MEAN CORPUSCULAR HGB CONC 33 g/dL (31-37); MEAN CORPUSCULAR VOLUME 89 fL (79-100); MONO # 1.5 x10^3/uL (0.0-1.1); MONO % 6 % (0-9); NEUT # 21.7 x10^3uL (1.8-7.7); NEUT % 86 % (31-73); PLATELET COUNT 315 x10^3/uL (140-400); RED BLOOD COUNT 4.04 x10^6/uL (4.30-5.70); RED CELL DISTRIBUTION WIDTH 12.4 % (11.5-14.5); WHITE BLOOD COUNT 25.3 x10^3/uL (4.0-11.0)
[2018-06-20 06:21] LABS: CALCIUM 7.6 mg/dL (8.5-10.1); CREATININE 0.9 mg/dL (0.7-1.3); GFR 81.8; POTASSIUM 3.3 mmol/L (3.5-5.1)
[2018-06-20] MEDS ORDERED: POTASSIUM CHLORIDE 20 MEQ TABLET.ER. PO ONE (08:00)
[2018-06-20] MEDS: METOPROLOL TART IMMED RELEASE 25 MG TABLET PO SCH ×2 (08:28→21:12)
[2018-06-20] MEDS: ASPIRIN ENTERIC COATED 325 MG TABLET.DR. PO SCH (08:28)
[2018-06-20] MEDS: INSULIN LISPRO 300 UNITS/3 ML INSULN.PEN. SQ SCH ×3 (08:36→17:44)
[2018-06-20] MEDS ORDERED: POTASSIUM CL 20MEQ D5-0.2%NACL 1,000 ML IV SCH (11:00)
[2018-06-20] MEDS: POTASSIUM CL 20MEQ D5-0.2%NACL 1,000 ML IV SCH ×2 (12:08→22:49)
--- NOTE | 2018-06-20 20:34 | PN ---
DATE: 06/20/2018 SUBJECTIVE: The patient is resting, slightly propped up in bed, in no apparent distress. He is awake, alert. On questioning him, he denied any complaint, in particular denied any pain, shortness of breath; so far, his blood cultures are negative and we send the urine for culture. The results were still pending. His white cell count is trending down, it was 33,000 and now it is 25,000. PHYSICAL EXAMINATION: GENERAL: When I examined him, he was pale, but no jaundice, cyanosis, or thyromegaly. No jugular venous distension. No limb edema. VITAL SIGNS: His heart rate was 99, blood pressure was 146/78, temperature was 99.5, respiratory rate was 20, and oxygen saturation was 96% on room air. HEAD, EYES, EARS, NOSE AND THROAT: Showed normocephalic, atraumatic, has multiple bruises on the left side of the face and his chin. NECK: Supple. HEART: Showed normal first and second sounds. No gallop, rub or murmur. CHEST: Clear to auscultation. No crepitation or rhonchi. ABDOMEN: Distended, soft, and nontender. No guarding or rigidity. No organomegaly. Hernial orifice intact. Bowel sounds normal. NEUROLOGIC: He is demented, but without any obvious sign, he did recognize his son-in-law. He did recognize his stepson. All his cranial nerves are intact. He moves her extremities without difficulty, though he is mostly bedbound. According to the son, he actually ambulates without assistance or assistive devices and he fell recently that is why he has all these abrasions on his face, chin, his both knees and legs. His intake over the last 24 hours was 2500 mL, output was 1925 mL. LABORATORY DATA: As of this morning showed a white cell count down to 25,000, hemoglobin 12, hematocrit 36, MCV 89, and platelet count 315,000. His chemistry showed a serum sodium 142, potassium 3.3, chloride 109, bicarbonate 21, anion gap of 12, BUN 16, creatinine 0.9, estimated GFR was 81 mL per minute, his glucose 179, and calcium was 7.6. PLAN: My plan is to change his intravenous fluid to half normal saline, with potassium. Meanwhile, continue with the intravenous vancomycin and Zosyn. PROMISE OLSEN MD DR: SOHAN/laura JOB#: [id number] / [id number]
[2018-06-20 20:46] LABS: VANC TR 5.6 mcg/mL (10.0-20.0)
[2018-06-20] MEDS: LACTOBACILLUS RHAMNOSUS GG 1 CAPSULE. PO SCH (21:11)
[2018-06-20] MEDS: ACETAMINOPHEN 650 MG/20.3 ML SOLUTION. PO PRN (21:11)
[2018-06-20] MEDS: POTASSIUM CHLORIDE 20 MEQ TABLET.ER. PO SCH (21:12)
[2018-06-20] MEDS ORDERED: VANCOMYCIN 1.25 GM in IV NORMAL SALINE 250ML 250 ML IV SCH (22:00)
[2018-06-20] MEDS: VANCOMYCIN PER PHARMACY MC PRN (23:04)
[2018-06-21 05:26] VITALS: BP 146/76
[2018-06-21] MEDS: PIPERACILLIN/TAZOBACTAM 3.375 GM in IV NORMAL SALINE 50ML 50 ML IV SCH ×3 (05:50→21:20)
[2018-06-21 06:28] LABS: BASO # 0.1 x10^3/uL (0.0-0.2); BASO % 0 % (0-3); EOS # 0.4 x10^3/uL (0.0-0.7); EOS % 3 % (0-3); HEMATOCRIT 37.1 % (39.0-53.0); HEMOGLOBIN 12.4 g/dL (13.0-17.5); LYMPH # 1.3 x10^3/uL (1.0-4.8); LYMPH % 9 % (24-48); MEAN CORPUSCULAR HEMOGLOBIN 30 pg (25-35); MEAN CORPUSCULAR HGB CONC 34 g/dL (31-37); MEAN CORPUSCULAR VOLUME 89 fL (79-100); MONO # 1.5 x10^3/uL (0.0-1.1); MONO % 11 % (0-9); NEUT # 11.3 x10^3uL (1.8-7.7); NEUT % 78 % (31-73); PLATELET COUNT 350 x10^3/uL (140-400); RED BLOOD COUNT 4.17 x10^6/uL (4.30-5.70); RED CELL DISTRIBUTION WIDTH 12.8 % (11.5-14.5); WHITE BLOOD COUNT 14.6 x10^3/uL (4.0-11.0)
[2018-06-21 06:31] LABS: CALCIUM 7.8 mg/dL (8.5-10.1); CREATININE 0.9 mg/dL (0.7-1.3); GFR 81.8; POTASSIUM 3.8 mmol/L (3.5-5.1)
[2018-06-21] MEDS: ASPIRIN ENTERIC COATED 325 MG TABLET.DR. PO SCH (08:55)
[2018-06-21] MEDS: LACTOBACILLUS RHAMNOSUS GG 1 CAPSULE. PO SCH ×2 (08:56→20:06)
[2018-06-21] MEDS: METOPROLOL TART IMMED RELEASE 25 MG TABLET PO SCH ×2 (08:56→20:07)
[2018-06-21] MEDS: POTASSIUM CHLORIDE 20 MEQ TABLET.ER. PO SCH ×2 (08:57→20:07)
[2018-06-21] MEDS: INSULIN LISPRO 300 UNITS/3 ML INSULN.PEN. SQ SCH ×3 (08:58→19:03)
--- NOTE | 2018-06-21 12:59 | PN ---
DATE: 06/21/2018 SUBJECTIVE: The patient is resting, slightly propped up in bed, in no apparent distress, awake, alert, responding at times appropriately. He does seem to be confused at times. His blood culture finally grew Pseudomonas aeruginosa. Actually, his urine culture has grown more than 100,000 colony forming units per mL of gram-negative Pseudomonas aeruginosa. The sensitivity is still pending at the time of this dictation. OBJECTIVE: GENERAL: When I examined him, he looked well and was clearly in no apparent respiratory distress. He was pale, but no jaundice, cyanosis, lymphadenopathy or thyromegaly. No jugular venous distension. No limb edema. VITAL SIGNS: Her heart rate was 84, blood pressure was 146/76, temperature was 98.8, respiratory rate was 18 and oxygen saturation was 96%. HEAD, EYES, EARS, NOSE AND THROAT: Showed normocephalic, atraumatic. NECK: Supple. HEART: Showed normal first and second sounds. No gallop, rub or murmur. CHEST: Clear to auscultation. No crepitation or rhonchi. ABDOMEN: Distended, soft, nontender. No guarding or rigidity. No organomegaly. Hernial orifice intact. Bowel sounds normal. NEUROLOGIC: He was demented, but without any obvious lateralizing sign. According to his son, he was able to ambulate without any assistance or assistive device; however, he fell sustaining multiple bruises on his face and both legs and knees. INTAKE AND OUTPUT: His intake over the last 24 hours was 2998, output was 1525. LABORATORY DATA: This morning showed his white cell count is down to 14,600, hemoglobin 12, hematocrit 37, MCV 89 and platelet count 250,000. Serum sodium was 138, potassium 3.8, chloride 108, bicarbonate 20, anion gap of 10, BUN 12, creatinine 0.9, estimated GFR was 82 mL per minute. His glucose was 7.8. PLAN: My plan is to discontinue the vancomycin and continue with Zosyn, await the sensitivity. He probably needs to be admitted to swing bed as he continued to be markedly debilitated and weak and will require further physical therapy before he can be discharged. PROMISE OLSEN MD DR: SOHAN/laura JOB#: [id number] / [id number]
[2018-06-21 14:14] VITALS: BP 138/77
--- NOTE | 2018-06-21 14:27 | RAD ---
CT STUDY OF THE ABDOMEN AND PELVIS WITHOUT CONTRAST Clinical indications: Abdominal pain for one day. Recurrent sepsis due to urinary tract infection COMPARISON: February 15, 2017. TECHNIQUE: Noncontrast helical CT scanning of the abdomen and pelvis was performed. Without contrast, the sensitivity to detect organ pathology and GI tract pathology is decreased. PQRS compliance Statement One or more of the following individualized dose reduction techniques were utilized for this study: 1. Automated exposure control 2. Adjustment of the mA and/or kV according to patient size 3. Use of iterative reconstruction technique FINDINGS: The liver and spleen and pancreas are homogeneous in appearance on this noncontrast study. The gallbladder is normal and no extrahepatic biliary ductal dilatation is seen. No adrenal mass is evident. No hydronephrosis or hydroureter is evident. No urinary tract stone is evident. Urinary bladder is decompressed by an indwelling Peterson catheter. There is mild fecal retention throughout the colon and rectosigmoid region. Colonic diverticulosis is seen most severely involving the sigmoid colon. No pericolonic edema or free fluid or abscess is seen to indicate diverticulitis. No small bowel obstruction is evident. No free air is evident. Small to moderate-sized bilateral pleural effusions are evident. Associated compressive atelectasis of both lower lobes is seen. More consolidative infiltrate is present in the left lower lobe posteriorly however. Grade 1-2 anterolisthesis of L5-S1 is seen secondary to bilateral spondylolysis of L5. This is unchanged. No osteolytic process is evident. IMPRESSION: No acute abnormality of the abdomen or pelvis is evident. Colonic diverticulosis without diverticulitis. Small to moderate-sized bilateral pleural effusions are evident. More consolidative infiltrate is present within the left lower lobe posteriorly. Pneumonia is possible. Electronically signed by: Samy Espinosa MD (06/21/2018 2:24 PM) [facility]
[2018-06-21 19:25] VITALS: BP 132/69
[2018-06-21] MEDS: ACETAMINOPHEN 650 MG/20.3 ML SOLUTION. PO PRN (20:07)
[2018-06-21 23:04] VITALS: BP 132/90
[2018-06-22 05:22] VITALS: BP 162/89
[2018-06-22] MEDS: PIPERACILLIN/TAZOBACTAM 3.375 GM in IV NORMAL SALINE 50ML 50 ML IV SCH (05:32)
[2018-06-22] MEDS: POTASSIUM CHLORIDE 20 MEQ TABLET.ER. PO SCH (08:31)
[2018-06-22] MEDS: LACTOBACILLUS RHAMNOSUS GG 1 CAPSULE. PO SCH (08:31)
[2018-06-22] MEDS: METOPROLOL TART IMMED RELEASE 25 MG TABLET PO SCH (08:32)
[2018-06-22] MEDS: ASPIRIN ENTERIC COATED 325 MG TABLET.DR. PO SCH (08:32)
[2018-06-22] MEDS: INSULIN LISPRO 300 UNITS/3 ML INSULN.PEN. SQ SCH (08:35)
[2018-06-22 10:44] LABS: HEMATOCRIT 35.3 % (39.0-53.0); HEMOGLOBIN 11.9 g/dL (13.0-17.5); RED BLOOD COUNT 4.01 x10^6/uL (4.30-5.70); RED CELL DISTRIBUTION WIDTH 12.6 % (11.5-14.5)
[2018-06-22 10:48] VITALS: BP 118/71
[2018-06-22 11:05] LABS: CALCIUM 8.2 mg/dL (8.5-10.1); CREATININE 0.9 mg/dL (0.7-1.3); GFR 81.8; POTASSIUM 3.8 mmol/L (3.5-5.1)
[2018-06-22 11:10] LABS: VANC TR 3.3 mcg/mL (10.0-20.0)
--- NOTE | 2018-06-22 11:14 | DS ---
DATE OF DISCHARGE: 06/22/2018 HOSPITAL COURSE: The patient is a 78-year-old male patient, who was admitted through the Emergency Room by his stepson with altered mental status. He is demented and does not really give any useful information. He was extensively investigated and was found to have multiple bruises on his chin, both knees. In the Emergency Room, he was found to be febrile. His temperature was 103 degrees Fahrenheit. His lab work showed that he has marked leukocytosis with a white cell count of 33,000. Blood sugar was also high. He was also hypokalemic. His troponin was slightly elevated. Urinalysis showed that he has bacteriuria and leukocyturia. Blood and urine was sent for culture and sensitivity. We started him on IV vancomycin and Zosyn. Eventually, his urine culture has grown more than 100,000 colony forming units per mL of Pseudomonas aeruginosa sensitive to all antibiotic as he remained hemodynamically stable and afebrile with his white cell count has normalized from 33,000-14,000. A decision was made to the swing him to swing bed as he continued to be markedly debilitated and deconditioned and required further physical and occupational therapy. PHYSICAL EXAMINATION: GENERAL: When I saw him this morning, he looked well and was clearly in no apparent respiratory distress. He was pale, but no jaundice or cyanosis. No lymphadenopathy, no thyromegaly. No jugular venous distention. No limb edema. VITAL SIGNS: His heart rate was 80, blood pressure was 162/89, temperature was 98, respiratory rate was 18 and oxygen saturation was 96% on room air. HEAD, EYES, EARS, NOSE AND THROAT: Showed normocephalic, atraumatic. NECK: Supple. HEART: Showed normal first and second heart sounds with no gallop, rub or murmur. CHEST: Clear to auscultation. No crepitation or rhonchi. ABDOMEN: Slightly distended, soft, nontender. NEUROLOGIC: He was awake, alert, responding at times appropriately; however, is demented. All his cranial nerves are intact. He moves extremities without difficulty, although he is mostly bed bound. His intake over the last 24 hours was 2760, output was 1300. LABORATORY DATA: As of yesterday showed a white cell count 14,600, hemoglobin 12, hematocrit 37, MCV 89 and platelet count 350,000. Most recent chemistry showed a serum sodium 138, potassium 3.8, chloride 108, bicarbonate 20, anion gap of 10, BUN 12, creatinine 0.9, estimated GFR was 81 mL per minute, his glucose 257, and calcium was 7.8. DISCHARGE MEDICATIONS: He was discharged to swing bed to continue on aspirin 81 mg once a day, acetaminophen 650 mg every 6 hours, metoprolol 25 mg p.o. b.i.d., lactobacillus rhamnosus 1 capsule twice a day, potassium chloride 20 mEq twice a day. I discontinued his Zosyn and was switched to Levaquin 500 mg daily for 4 more days. Continue with physical and occupational therapy as well as physical therapy. FINAL DISCHARGE DIAGNOSES: 1. Sepsis due to urinary tract infection with growth of more than 100,000 colony forming units per mL of Pseudomonas aeruginosa, sensitive to all antibiotics. 2. Acute kidney injury, resolved. His creatinine came down from 1.4-0.9. He has also type 2 diabetes mellitus, seems to be well controlled, generalized debility and deconditioning, to continue with physical and occupational therapy, dementia. PROMISE OLSEN MD DR: SOHAN/laura JOB#: [id number] / [id number]
[2018-06-23] MEDS ORDERED: LEVO500T59 PO (14:07)
[2018-06-23] MEDS ORDERED: METO25TA4 PO (14:07)
== END 2018-06-22 11:10 | disposition swing bed (61) | DRG 871 ==
LOC: ER 08:37 → ICU 10:56 → 1 SOUTH 06-20 13:22
PROVIDERS: ADMIT Internal Medicine; ATTEND Internal Medicine
DX: A41.9 Sepsis, unspecified organism (principal); I21.4 Non-ST elevation (NSTEMI) myocardial infarction; N17.9 Acute kidney failure, unspecified; N39.0 Urinary tract infection, site not specified; E11.22 Type 2 diabetes mellitus with diabetic chronic kidney disease; I12.9 Hypertensive chronic kidney disease with stage 1 through stage 4 chronic kidney disease, or unspecified chronic kidney disease; N18.9 Chronic kidney disease, unspecified; E11.65 Type 2 diabetes mellitus with hyperglycemia; E78.5 Hyperlipidemia, unspecified; E83.42 Hypomagnesemia; E87.6 Hypokalemia; B96.5 Pseudomonas (aeruginosa) (mallei) (pseudomallei) as the cause of diseases classified elsewhere; R29.6 Repeated falls; F03.90 Unspecified dementia, unspecified severity, without behavioral disturbance, psychotic disturbance, mood disturbance, and anxiety; Z85.828 Personal history of other malignant neoplasm of skin; Z79.82 Long term (current) use of aspirin; Z79.4 Long term (current) use of insulin
CPT/HCPCS: 36415; 51702; 70450; 71045; 74176; 80048; 80053; 80061; 80202; 81001; 82550; 82553; 82947; 83605; 83735; 83880; 84484; 85007; 85025; 85027; 85610; 85730; 87040; 87086; 87186; 87641; 93005; 93306; 96365; 96366; 96368; 99292; J1815; J2543; J3370; J3475; J7050; 99291-25; J7030

== ENCOUNTER 2018-06-22 11:14 | Inpatient (IN) | payer MEDICARE, OTHER ==
[~2018-06-22] VITALS: Ht 170.2 cm; Wt 83.1 kg
[~2018-06-22 11:14] MED LIST changes: +ASPI81TA59 PO
[2018-06-22] MEDS ORDERED: ACETAMINOPHEN 650 MG/20.3 ML SOLUTION. PO PRN (13:45)
[2018-06-22 13:55] VITALS: BP 119/74
[2018-06-22] MEDS: INSULIN LISPRO 300 UNITS/3 ML INSULN.PEN. SQ SCH (17:41)
[2018-06-22 20:05] VITALS: BP 115/64
[2018-06-22] MEDS: LACTOBACILLUS RHAMNOSUS GG 1 CAPSULE. PO SCH (20:12)
[2018-06-22] MEDS: POTASSIUM CHLORIDE 20 MEQ TABLET.ER. PO SCH (20:13)
[2018-06-22] MEDS: METOPROLOL TART IMMED RELEASE 25 MG TABLET PO SCH (20:13)
[2018-06-23] MEDS ORDERED: levoFLOXacin 500 MG TABLET PO SCH (06:00)
[2018-06-23 06:15] VITALS: BP 118/77
[2018-06-23 06:33] LABS: BASO % 0 % (0-3); EOS # 0.6 x10^3/uL (0.0-0.7); EOS % 5 % (0-3); HEMATOCRIT 34.4 % (39.0-53.0); HEMOGLOBIN 11.7 g/dL (13.0-17.5); LYMPH # 1.9 x10^3/uL (1.0-4.8); LYMPH % 15 % (24-48); MEAN CORPUSCULAR HEMOGLOBIN 30 pg (25-35); MEAN CORPUSCULAR HGB CONC 34 g/dL (31-37); MEAN CORPUSCULAR VOLUME 89 fL (79-100); MONO # 1.5 x10^3/uL (0.0-1.1); MONO % 12 % (0-9); NEUT # 8.4 x10^3uL (1.8-7.7); NEUT % 68 % (31-73); PLATELET COUNT 476 x10^3/uL (140-400); RED BLOOD COUNT 3.89 x10^6/uL (4.30-5.70); RED CELL DISTRIBUTION WIDTH 12.7 % (11.5-14.5); WHITE BLOOD COUNT 12.4 x10^3/uL (4.0-11.0)
[2018-06-23 06:43] LABS: ALBUMIN 2.1 g/dL (3.4-5.0); ALBUMIN/GLOBULIN RATIO 0.6 (1.0-1.7); CALCIUM 8.4 mg/dL (8.5-10.1); CREATININE 0.9 mg/dL (0.7-1.3); GFR 81.8; TOTAL BILIRUBIN 0.4 mg/dL (0.2-1.0); TOTAL PROTEIN 5.6 g/dL (6.4-8.2)
[2018-06-23] MEDS ORDERED: ASPIRIN ENTERIC COATED 81 MG TABLET.DR. PO SCH (08:00)
[2018-06-23] MEDS: LACTOBACILLUS RHAMNOSUS GG 1 CAPSULE. PO SCH (08:33)
[2018-06-23 08:34] VITALS: BP 118/77
[2018-06-23] MEDS: POTASSIUM CHLORIDE 20 MEQ TABLET.ER. PO SCH (08:34)
[2018-06-23] MEDS: METOPROLOL TART IMMED RELEASE 25 MG TABLET PO SCH (08:34)
[2018-06-23] MEDS: INSULIN LISPRO 300 UNITS/3 ML INSULN.PEN. SQ SCH ×2 (08:38→13:22)
[2018-06-23] MEDS ORDERED: METO25TA4 PO (14:07)
[2018-06-23] MEDS ORDERED: LEVO500T59 PO (14:07)
[2018-06-23] MEDS ORDERED: INSULIN LISPRO 300 UNITS/3 ML INSULN.PEN. SQ SCH (17:00)
[2018-06-23] MEDS ORDERED: INSULIN GLARGINE 300 UNITS/3 ML INSULN.PEN. SQ SCH (21:00)
[2018-06-24] MEDS ORDERED: ASPIRIN 81 MG TAB.CHEW PO SCH (08:00)
--- NOTE | 2018-06-24 13:58 | SSS ---
ADMIT DATE: 06/23/2018 HOSPITAL COURSE: The patient is a 78-year-old male patient who was admitted originally with altered mental status. He was found to have multiple bruises on his shins and both knees. He was also found to be febrile. His temperature was up to 103 degree Fahrenheit. His white cell count was extremely high at 33,000 and his blood sugar was also high. He was also hypokalemic. His troponin was slightly elevated. It was felt that it was a demand ischemia and the Cardiology team started him on oral metoprolol 25 mg twice a day. We did start him empirically on IV vancomycin and Zosyn. Eventually, his urine culture has grown more than 100,000 colony-forming units per mL of Pseudomonas aeruginosa, sensitive to all antibiotics. So, we discontinued his vancomycin, continued with Zosyn and switched him also eventually to oral Levaquin. Initially, he was extremely debilitated and weak; however, he was seen today by the physical therapist and has been up and about, without difficulty and given that he has dementia, it was felt that the patient is safer at home as he has stepson and his as well as home health from the [facility] taking care of him there and therefore he was discharged home to continue antibiotic treatment with treatment orally. PHYSICAL EXAMINATION: GENERAL: When I saw him today, he looked well and was clearly in no apparent respiratory distress, slightly pale, but no jaundice or cyanosis. No lymphadenopathy, no thyromegaly. No jugular venous distension. No limb edema. VITAL SIGNS: His heart rate was 69, blood pressure was 118/77, temperature was 98.3, respiratory rate was 18 and oxygen saturation was 95%. HEAD, EYES, EARS, NOSE AND THROAT: Showed he is normocephalic, atraumatic. NECK: Supple. HEART: Showed normal first and second heart sounds with no gallop, rub or murmur. CHEST: Clear to auscultation. No crepitation or rhonchi. ABDOMEN: Distended, soft, nontender. No guarding or rigidity. No organomegaly. Hernial orifice intact. Bowel sounds normal. NEUROLOGIC: He is awake, alert, but definitely confused and disoriented; however, all his cranial nerves are intact. He moves extremities without difficulty, ambulates without assistance or assistive devices. LABORATORY DATA: His lab work this morning showed a white cell count of 12,400, hemoglobin 11.7, hematocrit 34.4, MCV 89 and platelet count of 476,000 with normal manual differential. His chemistry showed a serum sodium of 140, potassium 4, chloride 106, bicarbonate 29, anion gap of 5, BUN 11, creatinine 0.9, estimated GFR was 82. Blood sugar was 133 mg/dL. Calcium was 8.4. Total bilirubin, AST, ALT, alkaline phosphatase were normal. Total protein 5.6, albumin 2.1. DISCHARGE MEDICATIONS: He was discharged home to continue on levofloxacin 500 mg once a day, metoprolol tartrate 25 mg twice a day, aspirin 81 mg once a day and detemir insulin 7 units subcutaneously twice a day. FINAL DISCHARGE DIAGNOSES: 1. Sepsis due to urinary tract infection with growth of Pseudomonas aeruginosa, sensitive to all antibiotics. He was treated initially empirically with Zosyn and vancomycin. Eventually, we switched him to oral Levaquin. 2. Hypokalemia, resolved. His most recent serum potassium is 4. 3. Acute kidney injury, resolved. His creatinine came down from 1.4-0.9. 4. Type 2 diabetes mellitus and debility and deconditioning, improved. The patient is now able to get up and about, walking without assistance or assistive devices. PROMISE OLSEN MD DR: SOHAN/laura JOB#: [id number] / [id number]
== END 2018-06-23 15:30 | disposition home health service (06) | DRG 872 ==
LOC: 1 SOUTH 11:14
PROVIDERS: ADMIT Internal Medicine; ATTEND Internal Medicine
DX: A41.9 Sepsis, unspecified organism (principal); I24.8 Other forms of acute ischemic heart disease; N17.9 Acute kidney failure, unspecified; N39.0 Urinary tract infection, site not specified; E11.9 Type 2 diabetes mellitus without complications; E87.6 Hypokalemia; F03.90 Unspecified dementia, unspecified severity, without behavioral disturbance, psychotic disturbance, mood disturbance, and anxiety; B96.5 Pseudomonas (aeruginosa) (mallei) (pseudomallei) as the cause of diseases classified elsewhere
CPT/HCPCS: 36415; 80053; 82947; 85025; J1815; 97110; 97535

== ENCOUNTER 2020-06-03 14:09 | Inpatient (IN) | payer MEDICARE, OTHER ==
[~2020-06-03] VITALS: Ht 170.2 cm; Wt 67.0 kg
[~2020-06-03 14:09] MED LIST changes: +LEVO500T59 PO; +METO25TA4 PO; -OLAN5TAB5 PO; +OLAN5TAB99 PO; +POTA20TA4 PO; -POTA20TA82 PO
[2020-06-03] MEDS ORDERED: IV NORMAL SALINE 1,000ML 1,000 ML IV ONE ×2 (14:30→15:15)
[2020-06-03] MEDS ORDERED: PIPERACILLIN/TAZOBACTAM 4.5 GM in IV NORMAL SALINE 50ML 50 ML IV ONE (14:30)
[2020-06-03] MEDS ORDERED: ACETAMINOPHEN 650 MG SUPP.RECT. PR ONE (14:30)
--- NOTE | 2020-06-03 14:33 | PHYS DOC ---
Past History Past Medical History: Constipation, Dementia, Diabetes, Hypertension, UTI Past Medical History Limited secondary to dementia/altered mental status Past Surgical History Limited secondary to dementia/altered mental status Smoking: Non-smoker Alcohol Use: None Drug Use: None Social History Limited secondary to dementia/altered mental status General Adult EDM: Chief Complaint: ALTERED MENTAL STATUS HPI: HPI: 80 year old male presents from snf via EMS with report of altered mental status this AM and a "purple" right foot which is a new finding per EMS report. Patient does have history of dementia but was less responsive to [facility] staff. EMS reports he was not able to take his pills like normal. intermediate staff also noted the right foot looked different than normal. EMS denies report of any known trauma. EMS also reports patent's initial O2 sat down to 90% on RA. History of present illness limited due to altered mental status. Review of Systems: Review of Systems: Review of systems limited secondary to altered mental status Current Medications: Current Meds: Current Medications Medications (Trade) Dose Ordered Sig/Anay Start Time Stop Time Status Last Admin Dose Admin Acetaminophen (Tylenol Supp) 650 mg 1X ONCE 06/03/20 14:30 06/03/20 14:31 UNV Insulin Human Regular (HumuLIN R VIAL) 6 unit 1X ONCE 06/03/20 14:30 06/03/20 14:31 UNV Piperacillin Sod/ Tazobactam Sod 4.5 gm/Sodium Chloride 50 ml @ 100 mls/hr 1X ONCE 06/03/20 14:30 06/03/20 14:59 UNV Sodium Chloride 1,000 ml @ 1,000 mls/hr 1X ONCE 06/03/20 14:30 06/03/20 15:29 UNV Allergies: Allergies: Allergies Coded Allergies Type Severity Reaction Last Updated Verified No Known Drug Allergies 02/15/17 No Physical Exam: PE: Constitutional: Elderly, frail, ill appearing HENT: Normocephalic, atraumatic, large amount of food substance in mouth Eyes: Conjunctiva normal, no discharge Neck: Normal range of motion, no tenderness, supple Lungs & Thorax: Equal chest rise and fall, tachypnea Abdomen: Soft, no tenderness Skin: Warm, dry, no erythema, deep purple hue to foot below ankle on right Extremities: No deformity, no edema Neurologic: Obtunded, GCS 10 (eye 3, verbal 2, motor 5) Psychologic: Unable to fully obtain, judgement abnormal EKG: EKG: @1418 Sinus tachycardia at 119bpm, NO ST elevation, QRS 68ms, QT/QTc 356/501ms Radiology/Procedures: Radiology/Procedures: PROCEDURE: CT HEAD AND CERVICAL SPINE [facility] Compliance Statement: One or more of the following individualized dose reduction techniques were utilized for this examination: 1. Automated exposure control 2. Adjustment of the mA and/or kV according to patient size 3. Use of iterative reconstruction technique CT HEAD AND CERVICAL SPINE WITHOUT CONTRAST History: Reason: altered mental status, pain / Spl. Instructions: / History: Comparison: CT head without contrast, June 18, 2018. Procedure: Axial images are obtained of the head from the skull base through the vertex without IV contrast. Noncontrast helical CT of the cervical spine was performed. Axial, sagittal, and coronal reconstructions were obtained. Findings: The ventricles and sulci are prominent, consistent with age-related cerebral atrophy. There is supratentorial white matter hypoattenuation. This is a nonspecific finding but is commonly due to chronic small vessel ischemic disease in a patient of this age. No mass-effect, midline shift, hemorrhage or obvious acute infarction is identified. Basilar cisterns are patent. Bone windows demonstrate no significant calvarial abnormality. The visualized paranasal sinuses are clear. Mastoid air cells are well aerated. There is no evidence of acute fracture or acute malalignment of the cervical spine. There are no perched or jumped facet joints. The upper left facet joints are hypertrophic. The vertebral body height and alignment are maintained. There is disc space narrowing of C6/C7. Other disc spaces relatively maintained. There is degenerative endplate spurring that is most advanced at C6/C7. There are carotid artery calcifications. The visualized lung apices are clear. IMPRESSION: 1. No acute intracranial abnormality. 2. No acute fracture of the cervical spine. Electronically signed by: Yomi Herron MD (06/03/2020 3:37 PM) [id number] PROCEDURE: CHEST AP ONLY Examination: CHEST AP ONLY History: Reason: altered mental status / Spl. Instructions: / History: Comparison: 06/18/2018 portal chest x-ray exam. Findings: AP portable upright frontal view of the chest was obtained. The cardiomediastinal silhouette is normal. Lungs are clear. There is no pneumothorax. No pleural effusion is appreciated. No acute bone abnormality. IMPRESSION: No acute cardiopulmonary process. Electronically signed by: Mello Buckley MD (06/03/2020 4:09 PM) [id number] PROCEDURE: ARTERIAL STUDY LOWER EXT RIGHT Right lower extremity arterial Doppler: Reason for examination: Discoloration of the right foot and toes. The right lower extremity arterial system was evaluated from the common femoral artery distally to the posterior tibial and dorsalis pedis arteries with grayscale imaging, color-flow imaging and spectral analysis. The common femoral artery shows a triphasic waveform in the profunda femoral artery shows a biphasic waveform. There is also a triphasic waveform in the proximal portion of the superficial femoral artery. There is moderate plaque in the superficial femoral artery however and there is a monophasic waveform from the mid superficial femoral artery to popliteal artery. Distally the popliteal artery however there is no flow and there is a small amount of nonpulsatile flow in the proximal posterior tibial artery which is probably collateral. There is also monophasic flow in the anterior tibial artery and dorsalis pedis arteries with slow blood flow velocity. Flow velocities are as follows: (In centimeters per second). Common femoral artery 107 Profundofemoral artery 86 Proximal superficial femoral artery 284 Mid superficial femoral artery 45 Distal superficial femoral artery 124 Proximal popliteal artery 333 Distal popliteal artery no flow Proximal posterior tibial artery 42 Distal posterior tibial artery no flow Peroneal artery no flow Anterior tibial artery 17 Dorsalis pedis artery 16. 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 There is monophasic blood flow in the distal posterior tibial artery, anterior tibial artery and dorsalis pedis artery which is probably collateral. Electronically signed by: Trinh Echavarria MD (06/03/2020 7:03 PM) ANDREW Course & Med Decision Making: Course & Med Decision Making Pertinent Labs and Imaging studies reviewed. (See chart for details) Elderly patient with pmh of dementia presents via EMS from snf with altered mental status and right foot discoloration. EMS also reports patient's Sat was decreased down to 90% on RA upon transport which improved with supplemental O2. Patient obtunded upon arrival. Large amount of food noted in mouth which was suctioned. Fever noted. Given tachycardia, tachypnea, and fever combined with altered mental status there was concern for sepsis. Empiric antibiotics and IVF sepsis bolusing provided. Labs obtained and posted to chart. WBC and lactic acid elevated consistent for severe sepsis. Significant hyperglycemia also noted. Concern for hyperosmolar hyperglycemic state. Insulin bolus/gtt initiated. Significant hypernatremia with acute renal failure/uremia also noted. IVF will be switched to 1/2 NS until blood sugar stabilizes. CT head without acute process. CXR stable. UA with findings consistent for acute UTI. Cannot exclude COVID19. COVID precautions in place upon patient arrival and COVID testing pending. Right foot with concern for ischemic process vs septic emboli. Heparin initiated. Arterial doppler also obtained which noted monophasic wave form to foot from collateral flow due to arterial occlusion at popliteal and superficial femoral arteries. Patient requiring admission for further evaluation and treatment. Discussed with Dr. Hollis (hospitalist) who is in agreement with ICU admission. Dragon Disclaimer: Millicent Disclaimer: This electronic medical record was generated, in whole or in part, using a voice recognition dictation system. Departure Departure: Impression: Primary Impression: Severe sepsis Additional Impressions: Hypernatremia Renal failure Qualified Codes: N17.9 - Acute kidney failure, unspecified Urinary tract infection Qualified Codes: N30.01 - Acute cystitis with hematuria Dementia Qualified Codes: F03.90 - Unspecified dementia without behavioral disturban ce Altered mental status Qualified Codes: R41.82 - Altered mental status, unspecified Suspected 2019 novel coronavirus infection Acute hyperglycemia Disposition: 09 ADMITTED INPATIENT Admitting Physician: Nguyễn Hollis Condition: CRITICAL Referrals: GEORGE POWER DO (PCP) Scripts No Active Prescriptions or Reported Meds Justification of Admission: Justification of Admission: Justification of Admission Dx: Yes Sepsis: Altered Mental Status Comments: Severe sepsis, HHS, Hypernatremia, UTI, Right foot discoloration COVID-19 Assessment COVID-19 Patient Risks: Age 65 or older: Yes Sign of co-morbidity: Yes Exp to person + for COVID: No Exp to PUI: No Travel from affected area: No Lower respiratory symptoms: No Fever: Yes PPE Use: Full PPE with N95 mask or PAPR: Yes Critical Care Time Critical care time was 30 minutes which includes time at bedside, spent in discussion of patient's care with specialists and/or family members, with i nterpretation of laboratory and/or radiological studies and is exclusive of procedures. Sepsis Assessment Date and Time of Assessment Date: Jun 03, 2020 Time: 16:00 Fluid Challenge: Is the fluid challenge complet: No IBW Target Volume Used: No BMI > 30: No Vital Signs Vital Signs Vital Signs Date Time Temp Pulse Resp B/P (MAP) Pulse Ox O2 Delivery O2 Flow Rate FiO2 06/05/20 20:03 Room Air 06/05/20 19:50 99.4 91 20 104/59 (74) 99 06/04/20 21:00 2.0 Temperature Source: Axillary Respirations Respiratory Effort: Normal Respiratory Pattern: Normal Cardiovascular Pulse Rhythm: Irregular (tachycardia) Heart: S1 and S2 normal Lung Sounds Breath Sounds: Diminished Capillary Refill Capillary Refill: Rt Hand < 3 seconds Peripheral Pulse Pulse Location: Radial Pulse Strength: Weak (1+) Pulse Assessment Method: Palpation Integumentary Skin: Warm, Dry, Cyanotic (right foot) Skin Moisture: Dry Skin Color: warm, dry, cyanotic (to right foot) Fingernail Color: CATHLEEN LOAIZA DO Jun 03, 2020 14:33
[2020-06-03] MEDS ORDERED: INSULIN LISPRO 300 UNITS/3 ML VIAL. SQ ONE (14:45)
[2020-06-03 14:46] LABS: BASO # 0.1 x10^3/uL (0.0-0.2); BASO % 0 % (0-3); EOS % 0 % (0-3); HEMOGLOBIN 12.8 g/dL (13.0-17.5); LYMPH # 1.7 x10^3/uL (1.0-4.8); LYMPH % 7 % (24-48); MEAN CORPUSCULAR HEMOGLOBIN 30 pg (25-35); MEAN CORPUSCULAR HGB CONC 31 g/dL (31-37); MEAN CORPUSCULAR VOLUME 98 fL (79-100); MONO # 1.4 x10^3/uL (0.0-1.1); MONO % 6 % (0-9); NEUT # 21.2 x10^3uL (1.8-7.7); NEUT % 87 % (31-73); PLATELET COUNT 493 x10^3/uL (140-400); RED BLOOD COUNT 4.27 x10^6/uL (4.30-5.70); RED CELL DISTRIBUTION WIDTH 13.8 % (11.5-14.5); WHITE BLOOD COUNT 24.4 x10^3/uL (4.0-11.0)
--- NOTE | 2020-06-03 14:56 | EKG ---
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
[2020-06-03] MEDS ORDERED: IV NORMAL SALINE 50ML 50 ML ONE (15:00)
[2020-06-03] MEDS ORDERED: PIPERACILLIN/TAZOBACTAM 4.5 GM VIAL IV ONE (15:00)
[2020-06-03 15:10] LABS: BILIRUBIN,URINE NEG (NEG); CLARITY,URINE TURBID; COLOR,URINE YELLOW; GLUCOSE,URINE >=1000 mg/dL (NEG)
[2020-06-03 15:11] LABS: BACTERIA,URINE MANY /HPF (0-FEW); NITRITE,URINE NEG (NEG); UROBILINOGEN,URINE 0.2 mg/dL (0.2 mg/dL); WBC,URINE TNTC /HPF (0-4)
[2020-06-03] MEDS ORDERED: VANCOMYCIN PER PHARMACY MC PRN (15:15)
--- NOTE | 2020-06-03 15:40 | RAD ---
RS Compliance Statement: One or more of the following individualized dose reduction techniques were utilized for this examination: 1. Automated exposure control 2. Adjustment of the mA and/or kV according to patient size 3. Use of iterative reconstruction technique CT HEAD AND CERVICAL SPINE WITHOUT CONTRAST History: Reason: altered mental status, pain / Spl. Instructions: / History: Comparison: CT head without contrast, June 18, 2018. Procedure: Axial images are obtained of the head from the skull base through the vertex without IV contrast. Noncontrast helical CT of the cervical spine was performed. Axial, sagittal, and coronal reconstructions were obtained. Findings: The ventricles and sulci are prominent, consistent with age-related cerebral atrophy. There is supratentorial white matter hypoattenuation. This is a nonspecific finding but is commonly due to chronic small vessel ischemic disease in a patient of this age. No mass-effect, midline shift, hemorrhage or obvious acute infarction is identified. Basilar cisterns are patent. Bone windows demonstrate no significant calvarial abnormality. The visualized paranasal sinuses are clear. Mastoid air cells are well aerated. There is no evidence of acute fracture or acute malalignment of the cervical spine. There are no perched or jumped facet joints. The upper left facet joints are hypertrophic. The vertebral body height and alignment are maintained. There is disc space narrowing of C6/C7. Other disc spaces relatively maintained. There is degenerative endplate spurring that is most advanced at C6/C7. There are carotid artery calcifications. The visualized lung apices are clear. IMPRESSION: 1. No acute intracranial abnormality. 2. No acute fracture of the cervical spine. Electronically signed by: Yomi Herron MD (06/03/2020 3:37 PM) [id number]
[2020-06-03] MEDS ORDERED: VANCOMYCIN 1 GM VIAL. ONE ×2 (15:47→15:55)
[2020-06-03] MEDS ORDERED: IV NORMAL SALINE 500ML 0 ML ONE (15:47)
[2020-06-03 15:49] LABS: AMPHETAMINE/METHAMPHETAMINE NEG (NEG); BARBITURATES NEG (NEG); BENZODIAZEPINES NEG (NEG); CANNABINOIDS NEG (NEG); COCAINE NEG (NEG); METHADONE NEG (NEG); OPIATES NEG (NEG); PHENCYCLIDINE NEG (NEG)
[2020-06-03] MEDS ORDERED: VANCOMYCIN 1.75 GM in IV NORMAL SALINE 500ML 500 ML IV ONE (16:00)
[2020-06-03 16:11] LABS: ALBUMIN 2.4 g/dL (3.4-5.0); ALBUMIN/GLOBULIN RATIO 0.4 (1.0-1.7); CALCIUM 9.4 mg/dL (8.5-10.1); CREATININE 3.6 mg/dL (0.7-1.3); GFR 16.4; POTASSIUM 4.5 mmol/L (3.5-5.1); TOTAL BILIRUBIN 0.6 mg/dL (0.2-1.0); TOTAL PROTEIN 8.1 g/dL (6.4-8.2)
--- NOTE | 2020-06-03 16:12 | RAD ---
Examination: CHEST AP ONLY History: Reason: altered mental status / Spl. Instructions: / History: Comparison: 06/18/2018 portal chest x-ray exam. Findings: AP portable upright frontal view of the chest was obtained. The cardiomediastinal silhouette is normal. Lungs are clear. There is no pneumothorax. No pleural effusion is appreciated. No acute bone abnormality. IMPRESSION: No acute cardiopulmonary process. Electronically signed by: Mello Buckley MD (06/03/2020 4:09 PM) [id number]
[2020-06-03] MEDS ORDERED: IV 1/2 NORMAL SALINE 1,000 ML IV ONE (16:30)
[2020-06-03] MEDS ORDERED: DEXTROSE 50% 25 GM / 50ML DISP.SYRIN. IV PRN (16:30)
[2020-06-03 16:43] LABS: % BANDS 6 % (0-9); % LYMPHS 6 % (24-48); % MONOS 2 % (0-10); % SEGS 86 % (35-66); PLT ESTIMATE INCREASED (ADEQUATE)
[2020-06-03 16:44] LABS: TOXIC GRANULATION PRESENT
[2020-06-03] MEDS ORDERED: HEPARIN for IV BOLUS 10,000 UNIT/10 ML VIAL. IV PRN ×3 (17:15)
[2020-06-03] MEDS ORDERED: ONDANSETRON PF 4 MG/2 ML VIAL. IVP PRN (17:15)
[2020-06-03] MEDS ORDERED: HEPARIN for IV BOLUS 10,000 UNIT/10 ML VIAL. IV ONE (17:15)
[2020-06-03] MEDS ORDERED: HEPARIN 25,000UTS/250ML PREMIX 250 ML IV PRN (17:15)
--- NOTE | 2020-06-03 19:00 | NUR ---
The patient, MICK VALDOVINOS, 80 y/o, M admitted by PROMISE OLSEN MD, was given written information regarding hospital policies, unit procedures and contact persons. Valuables were checked and logged. Call light in place. Will continue to monitor.
[2020-06-03] MEDS: INSULIN REGULAR VIAL 100 UNIT in IV NORMAL SALINE 100ML 100 ML IV PRN (19:01)
--- NOTE | 2020-06-03 19:05 | RAD ---
Right lower extremity arterial Doppler: Reason for examination: Discoloration of the right foot and toes. The right lower extremity arterial system was evaluated from the common femoral artery distally to the posterior tibial and dorsalis pedis arteries with grayscale imaging, color-flow imaging and spectral analysis. The common femoral artery shows a triphasic waveform in the profunda femoral artery shows a biphasic waveform. There is also a triphasic waveform in the proximal portion of the superficial femoral artery. There is moderate plaque in the superficial femoral artery however and there is a monophasic waveform from the mid superficial femoral artery to popliteal artery. Distally the popliteal artery however there is no flow and there is a small amount of nonpulsatile flow in the proximal posterior tibial artery which is probably collateral. There is also monophasic flow in the anterior tibial artery and dorsalis pedis arteries with slow blood flow velocity. Flow velocities are as follows: (In centimeters per second). Common femoral artery 107 Profundofemoral artery 86 Proximal superficial femoral artery 284 Mid superficial femoral artery 45 Distal superficial femoral artery 124 Proximal popliteal artery 333 Distal popliteal artery no flow Proximal posterior tibial artery 42 Distal posterior tibial artery no flow Peroneal artery no flow Anterior tibial artery 17 Dorsalis pedis artery 16. 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 There is monophasic blood flow in the distal posterior tibial artery, anterior tibial artery and dorsalis pedis artery which is probably collateral. Electronically signed by: Trinh Echavarria MD (06/03/2020 7:03 PM) ANDREW
[2020-06-03 19:10] VITALS: BP 139/59
[2020-06-03 20:00] VITALS: BP 116/61
[2020-06-03] MEDS ORDERED: ACETAMINOPHEN 650 MG SUPP.RECT. PR PRN (20:00)
[2020-06-03] MEDS: IV DEXTROSE 5% 1,000 ML IV SCH (20:24)
[2020-06-03 21:00] VITALS: BP 111/86
[2020-06-03 21:04] LABS: CALCIUM 8.5 mg/dL (8.5-10.1); CREATININE 3.3 mg/dL (0.7-1.3); GFR 18.2; POTASSIUM 3.2 mmol/L (3.5-5.1)
[2020-06-03 22:00] VITALS: BP 116/60
[2020-06-03] MEDS ORDERED: HEPARIN for SUB-Q USE 5,000 UNIT/ML VIAL. SQ SCH (22:00)
[2020-06-03] MEDS: POTASSIUM CHLORIDE 10MEQ 100 ML IV SCH ×2 (22:13→23:18)
[2020-06-03] MEDS: PIPERACILLIN/TAZOBACTAM 2.25 GM in IV NORMAL SALINE 50ML 50 ML IV SCH (22:13)
[2020-06-03] MEDS: HEPARIN for SUB-Q USE 5,000 UNIT/ML VIAL. SQ SCH (22:14)
[2020-06-03 23:00] VITALS: BP 110/53
[2020-06-03] MEDS ORDERED: DOCU100C28 PO (23:48)
[2020-06-03] MEDS ORDERED: GLIP10TA13 PO (23:48)
[2020-06-03] MEDS ORDERED: ERGO500027 PO (23:48)
[2020-06-03] MEDS ORDERED: DULO30CA2 PO (23:48)
[2020-06-03] MEDS ORDERED: POLY119P19 PO (23:48)
[2020-06-03] MEDS ORDERED: SULF1TAB24 PO (23:48)
[2020-06-03] MEDS ORDERED: MULT-240 PO (23:48)
[2020-06-03] MEDS ORDERED: SITA50TA PO (23:48)
[2020-06-03] MEDS ORDERED: MICO113C TP (23:48)
[2020-06-04] VITALS (24 sets, daily range): BP systolic 86–119; BP diastolic 27–91
[2020-06-04] MEDS: POTASSIUM CHLORIDE 10MEQ 100 ML IV SCH ×6 (00:30→09:27)
[2020-06-04] MEDS: INSULIN REGULAR VIAL 100 UNIT in IV NORMAL SALINE 100ML 100 ML IV PRN (00:32)
[2020-06-04 01:17] LABS: CALCIUM 8.3 mg/dL (8.5-10.1); GFR 20.3; POTASSIUM 3.5 mmol/L (3.5-5.1)
[2020-06-04 04:09] LABS: BASO # 0.1 x10^3/uL (0.0-0.2); BASO % 0 % (0-3); EOS # 0.2 x10^3/uL (0.0-0.7); EOS % 1 % (0-3); HEMATOCRIT 35.4 % (39.0-53.0); LYMPH # 2.2 x10^3/uL (1.0-4.8); LYMPH % 6 % (24-48); MEAN CORPUSCULAR HEMOGLOBIN 30 pg (25-35); MEAN CORPUSCULAR HGB CONC 31 g/dL (31-37); MEAN CORPUSCULAR VOLUME 96 fL (79-100); MONO # 1.8 x10^3/uL (0.0-1.1); MONO % 5 % (0-9); NEUT # 30.3 x10^3uL (1.8-7.7); NEUT % 88 % (31-73); PLATELET COUNT 343 x10^3/uL (140-400); RED CELL DISTRIBUTION WIDTH 13.2 % (11.5-14.5); WHITE BLOOD COUNT 34.6 x10^3/uL (4.0-11.0)
[2020-06-04 04:42] LABS: CALCIUM 8.3 mg/dL (8.5-10.1); CREATININE 2.8 mg/dL (0.7-1.3); POTASSIUM 3.4 mmol/L (3.5-5.1)
[2020-06-04] MEDS: PIPERACILLIN/TAZOBACTAM 2.25 GM in IV NORMAL SALINE 50ML 50 ML IV SCH ×3 (06:04→23:56)
[2020-06-04] MEDS: HEPARIN for SUB-Q USE 5,000 UNIT/ML VIAL. SQ SCH ×3 (06:04→23:56)
[2020-06-04] MEDS: IV DEXTROSE 5% 1,000 ML IV SCH ×2 (06:05→15:57)
[2020-06-04 09:04] LABS: CALCIUM 8.2 mg/dL (8.5-10.1); CREATININE 2.7 mg/dL (0.7-1.3); GFR 22.9; POTASSIUM 4.1 mmol/L (3.5-5.1)
--- NOTE | 2020-06-04 12:07 | NUR ---
attempted to get pt's 1200 blood draw and this nurse and nurse Tellez attempted multiple sticks, lab called to obtain lab specimen.
--- NOTE | 2020-06-04 12:21 | PN ---
DATE: 06/04/2020 SUBJECTIVE: The patient is a 80-year-old male patient, a resident at [facility], who was admitted yesterday with altered mental status. He was found to be septic with lactic acidosis, severe hyperglycemia; however, he was also in acute kidney injury with a BUN of 93 and creatinine was 3.6. He has received 2 liters of normal saline at the Emergency Room. Blood and urine were sent for culture and sensitivity and was started on insulin drip as well as D5W and we will also start him on Zosyn at 2.25 g IV q. 8 hourly and Zyvox 600 mg IV q. 12 hourly. His blood sugar has finally normalized. However, his serum sodium continued to be extremely high, has estimated water deficit of about 8 liters. In fact, his sodium has worsened because of the normal saline. We continued with DW to replenish his water. Unfortunately, he is not awake enough to be able to drink water. PHYSICAL EXAMINATION: GENERAL: When I saw him this morning, he looked well and was clearly in no apparent distress, somewhat pale, but no jaundice, cyanosis or thyromegaly. No jugular venous distention. No limb edema. VITAL SIGNS: His heart rate was 83, blood pressure was 108/88, temperature was 96.9, respiratory rate was 18 and oxygen saturation was 98% on 2 liters of oxygen. HEAD, EYES, EARS, NOSE AND THROAT: Showed normocephalic, atraumatic. NECK: Supple. HEART: Showed normal first and second heart sounds. No gallop, rub or murmur. CHEST: Clear to auscultation. No crepitation or rhonchi. ABDOMEN: Slightly distended, soft, nontender. NEUROLOGIC: He is definitely more awake, alert, opens his eyes, tracks and actually moves his upper extremities and returns greeting by waving his right upper extremity. His intake over the last 24 hours was 2550, output was 325. LABORATORY DATA: As of this morning, his serum sodium is still high at 162, potassium 4.1, chloride 127, bicarbonate 25, anion gap of 10, BUN 73, creatinine was 2.7, estimated GFR was 22 mL per minute. His creatinine was 2.7 mg/dL. His glucose was 135 and calcium was 8.2. His lactic acid is down to 2.5 from 3.3. ASSESSMENT: In summary, this is a 80-year-old male patient who was admitted with altered mental status, likely multifactorial including severe hyperglycemia and uremia due to acute on chronic kidney injury, sepsis, likely due to urinary tract infection as he grew methicillin-resistant Staphylococcus aureus and group B Streptococcus in his urine culture done at [facility]. Severe hypernatremia, benign prostatic hypertrophy requiring indwelling Peterson catheter, and dementia. He was swabbed also for coronavirus infection. PLAN: My plan is obviously to continue with IV antibiotic in the form of Zosyn and Zyvox. Continue with D5W, continue with insulin drip. We will continue to monitor his blood sugar hourly and monitor his electrolytes every 4 hours. Once he is more awake, we will see if he can drink water and that obviously will replenish his water deficit sooner. PROMISE OLSEN MD DR: SOHAN/laura JOB#: [id number] / [id number]
--- NOTE | 2020-06-04 12:35 | HP ---
ADMIT DATE: 06/03/2020 HISTORY OF PRESENT ILLNESS: The patient is a 80-year-old male patient, a resident at [facility], who apparently was brought to the Emergency Room with altered mental status. The patient was nonverbal and therefore he was extensively investigated in the Emergency Room, he was found to be tachycardic with a heart rate of 119, was both clinically and biochemically extremely dehydrated and markedly hyperglycemic. His lab work showed his initial serum sodium was 166, potassium 3.4. His BUN was 78, creatinine 2.8, lactic acid was high at 2.9 and his white cell count was 24,400, hemoglobin 12.8, hematocrit 42, MCV 98 and platelet count of 493,000. The patient was admitted. His urinalysis showed the urine was yellow, clear with a pH of 5, specific gravity 1.025 with large amount of protein, large amount of glucose, large amount of blood and large amount of leukocyte esterase, too numerous to count wbc's and too many bacteria and therefore the patient was admitted with sepsis, nonketotic hyperglycemic coma, severe hypernatremia, acute on chronic kidney injury, lactic acidosis. Blood and urine was sent for culture and sensitivity. He has received 2 liters of normal saline and was started on insulin drip as well as D5W. We added also Zosyn and Zyvox. He was admitted to the ICU for further evaluation and treatment. The patient himself is nonverbal and does not give any useful information. Apparently, he has urinary tract infection with growth of methicillin-resistant Staphylococcus aureus as well as group B streptococcus and actually we started him on Zyvox and Zosyn. PAST MEDICAL HISTORY: Significant for type 2 diabetes mellitus, neurogenic bladder, dementia, chronic constipation, major depressive disorder, previous history of methicillin-resistant Staphylococcus aureus infection and recurrent urinary tract infection. PAST SURGICAL HISTORY: Unremarkable. FAMILY HISTORY: Unobtainable. SOCIAL HISTORY: He is a resident at [facility]. No other information is obtainable. REVIEW OF SYSTEMS: Unobtainable. PHYSICAL EXAMINATION: GENERAL: On arrival to the Emergency Room, the patient basically was lethargic, but apparently arousable. He does open his eyes, but he is nonverbal. He was somewhat pale, but no jaundice, cyanosis or thyromegaly. No jugular venous distention. No lower limb edema. VITAL SIGNS: His heart rate on arrival was 125, blood pressure 127/65, his temperature was 102.2, respiratory rate was 14 and oxygen saturation was 89% on room air. HEAD, EYES, EARS, NOSE AND THROAT: Showed normocephalic, atraumatic. NECK: Supple. HEART: Showed normal first and second heart sounds. No gallop or murmur. CHEST: Clear to auscultation. No crepitation or rhonchi. ABDOMEN: Distended, soft, nontender. No guarding or rigidity. No organomegaly. All hernial orifice intact. Bowel sounds normal. NEUROLOGIC: He seems to be grossly intact. His right foot is bluish and discoloration and cold to touch, although there is no obvious gangrene. LABORATORY DATA: While in the Emergency Room, he had lab work done, which showed a white cell count of 24,400, hemoglobin 12.8, hematocrit 42, MCV 98 and platelet count of 493,000 with manual differential showed 87% polymorphs, 7% lymphocytes, 6% monocytes. His initial chemistry showed that his serum sodium was 161, potassium 4.5, chloride 120, bicarbonate 26, anion gap of 15, BUN 93, creatinine 3.6, estimated GFR was 60 mL per minute, his glucose was 814. His lactic acid was 3.3, magnesium was 3. Calcium was 9.4. Total bilirubin, AST, ALT, alkaline phosphatase were normal. His ammonia was 20. CK was 240 and troponin was less than 0.030 and beta natriuretic peptide was 1107. His total protein was 8.1, albumin was 2.4. His prothrombin time, INR and aPTT are all normal. Urinalysis showed the urine was yellow, turbid with a pH of 5, specific gravity of 1.025 with large amount of protein, large amount of glucose, trace of ketones, large amount of blood, negative for nitrite and bilirubin. There was large amount of leukocyte esterase, 1-2 rbc's, too numerous to count wbc's and too many bacteria. His toxic screen was essentially negative. He has had a CT scan of the head and cervical spine, which showed no acute intracranial abnormality and no acute fracture of cervical spine. His chest x-ray showed that the cardiomediastinal silhouette is normal. Lungs are clear. There is no pneumothorax, no pleural effusion is appreciated, no acute bony abnormalities. Given the dusky and bluish discoloration of his right lower extremity, he has had arterial Doppler ultrasound of his right lower extremity, which basically showed plaque of the superficial femoral artery with severe stenosis in the proximal superficial femoral artery, distal superficial femoral artery and proximal popliteal artery with no blood flow seen in the distal popliteal artery. There is monophasic blood flow in the distal posterior tibial artery, anterior tibial and dorsalis pedis artery, which is probably collateral. ASSESSMENT AND PLAN: 1. The patient was admitted with sepsis likely due to urinary tract infection with lactic acidosis. 2. Nonketotic hyperosmolar coma. 3. Acute on chronic kidney injury. He has received 2 liters of fluid in the Emergency Room in the form of normal saline and was started on IV fluid in the form of D5W. We did start him also on insulin drip. We will continue with heparin for DVT prophylaxis, Zosyn and linezolid as he has grown methicillin-resistant Staphylococcus aureus in his urine culture that is sensitive to linezolid and vancomycin. He also grew group B streptococcus. We will check his electrolytes every 4 hours, check a blood sugar hourly. We will continue with D5W as he is extremely dehydrated and markedly hypernatremic. Once we have the results of the blood and urine culture, we might have to adjust the antibiotic therapy. Once he is also more awake, alert, we will also consult the speech therapy and ideally if he can drink more water that will solve his hypernatremia faster. PROMISE OLSEN MD DR: SOHAN/laura JOB#: [id number] / [id number]
[2020-06-04 12:42] LABS: CREATININE 2.6 mg/dL (0.7-1.3); GFR 23.9; POTASSIUM 3.8 mmol/L (3.5-5.1)
--- NOTE | 2020-06-04 13:00 | NUR ---
During turning and assessing the patients back side it was noted that there was a small wound on the R foot. It was documented and photo was taken and left in the chart. It was also noted that the R foot is purple and peelings. Will CTM.
--- NOTE | 2020-06-04 15:00 | NUR ---
spoke to patients son regarding possible hospice for patient. family understands and he states he will speak to his other family members involved and followup with jessica servin from case management on Friday. This nurse left a note on Jessica's desk to call the son to follow up with hospice care.
[2020-06-04 16:15] LABS: CREATININE 2.5 mg/dL (0.7-1.3); POTASSIUM 3.3 mmol/L (3.5-5.1)
[2020-06-04] MEDS: POTASSIUM CHLORIDE 20MEQ 100 ML IV SCH ×2 (17:11→19:51)
--- NOTE | 2020-06-04 17:24 | NUR ---
attempted to swab patients and patient kept clenching jaws and did not open his mouth and refused the swab.
[2020-06-04 22:56] LABS: CALCIUM 7.5 mg/dL (8.5-10.1); GFR 32.4
[2020-06-04 23:04] LABS: POTASSIUM 4.4 mmol/L (3.5-5.1)
[2020-06-05] VITALS (14 sets, daily range): BP systolic 90–114; BP diastolic 36–62
[2020-06-05] MEDS: IV DEXTROSE 5% 1,000 ML IV SCH (02:16)
[2020-06-05] MEDS: PIPERACILLIN/TAZOBACTAM 2.25 GM in IV NORMAL SALINE 50ML 50 ML IV SCH ×2 (06:00→13:45)
[2020-06-05] MEDS: HEPARIN for SUB-Q USE 5,000 UNIT/ML VIAL. SQ SCH ×2 (06:00→14:00)
[2020-06-05 06:47] LABS: BASO # 0.3 x10^3/uL (0.0-0.2); BASO % 1 % (0-3); EOS # 1.2 x10^3/uL (0.0-0.7); EOS % 4 % (0-3); HEMATOCRIT 29.8 % (39.0-53.0); HEMOGLOBIN 9.5 g/dL (13.0-17.5); LYMPH # 3.2 x10^3/uL (1.0-4.8); LYMPH % 10 % (24-48); MEAN CORPUSCULAR HEMOGLOBIN 30 pg (25-35); MEAN CORPUSCULAR HGB CONC 32 g/dL (31-37); MEAN CORPUSCULAR VOLUME 93 fL (79-100); MONO # 1.6 x10^3/uL (0.0-1.1); MONO % 5 % (0-9); NEUT # 26.3 x10^3uL (1.8-7.7); NEUT % 81 % (31-73); PLATELET COUNT 273 x10^3/uL (140-400); RED BLOOD COUNT 3.22 x10^6/uL (4.30-5.70); RED CELL DISTRIBUTION WIDTH 12.7 % (11.5-14.5); WHITE BLOOD COUNT 32.5 x10^3/uL (4.0-11.0)
--- NOTE | 2020-06-05 07:00 | NUR ---
Pt is more alert this am and restless. Pt refuses and fights with oral care, kwasi care, turns, etc. Difficult stick for labs, IVs etc. Pt pulled both IV out last night and took multiple attempts to restart. Pts insulin drip on hold at this time. FSBS 54, then 70 at recheck. Continue to get D5 @ 100 and appears asymptomatic from the low blood sugar. Reported to Sammie SALAMANCA.
[2020-06-05 07:05] LABS: ALBUMIN 1.8 g/dL (3.4-5.0); ALBUMIN/GLOBULIN RATIO 0.5 (1.0-1.7); CALCIUM 7.5 mg/dL (8.5-10.1); CREATININE 1.9 mg/dL (0.7-1.3); GFR 34.4; TOTAL BILIRUBIN 0.4 mg/dL (0.2-1.0); TOTAL PROTEIN 5.8 g/dL (6.4-8.2)
[2020-06-05] MEDS: POTASSIUM CHLORIDE 40 MEQ in IV DEXTROSE 5% 1,000 ML IV SCH ×2 (10:18→19:42)
[2020-06-05 10:41] LABS: % BANDS 6 % (0-9); % BASOS 1 % (0-3); % EOS 2 % (0-5); % LYMPHS 5 % (24-48); % MONOS 5 % (0-10); % MYELOS 2 % (0-0); % SEGS 79 % (35-66); PLT ESTIMATE ADEQUATE (ADEQUATE)
[2020-06-05 10:43] LABS: BURR CELLS FEW
[2020-06-05] MEDS ORDERED: NYSTATIN TOPICAL POWDER 15GM BOTTLE. TP SCH (12:45)
--- NOTE | 2020-06-05 12:50 | NUR ---
Spoke with pt step SON DON his DPOA and his son Ramon. Explained condition of patient and POC. Also talked about his foot and how if want to be aggressive we would need to send him to a higher level of care. Seems to be some family dynamic issues with step-son and son. Expressed that what is best for the patient is what needs to be done and what he would want. They both verbalized that he would not want a feeding tube or aggressive care. Will continue to monitor. Jessica RUIZ will touch base with family. Yolanda SALAMANCA
[2020-06-05 13:00] LABS: HEMATOCRIT 27.1 % (39.0-53.0); HEMOGLOBIN 8.6 g/dL (13.0-17.5); RED BLOOD COUNT 2.89 x10^6/uL (4.30-5.70); RED CELL DISTRIBUTION WIDTH 12.7 % (11.5-14.5); WHITE BLOOD COUNT 26.3 x10^3/uL (4.0-11.0)
[2020-06-05 13:14] LABS: ALBUMIN 1.5 g/dL (3.4-5.0); ALBUMIN/GLOBULIN RATIO 0.4 (1.0-1.7); CALCIUM 7.5 mg/dL (8.5-10.1); CREATININE 1.9 mg/dL (0.7-1.3); GFR 34.4; POTASSIUM 4.6 mmol/L (3.5-5.1); TOTAL BILIRUBIN 0.4 mg/dL (0.2-1.0); TOTAL PROTEIN 5.1 g/dL (6.4-8.2)
--- NOTE | 2020-06-05 15:28 | DISCH ---
DISCHARGE ORDERS DISCHARGE DATE: Jun 05, 2020 FINAL DIAGNOSIS hyperosmolar coma acute kidney injury hypernatremia sepsis peripheral vacular disease CONDITION AT DISCHARGE: Stable Code Status: DNR/DNI HOSPICE: Yes HOSPICE EVALUATE & TREAT: Yes POST DISCHARGE ORDERS: ACTIVITY ORDERS: No restrictions, Resume previous activity TREATMENT/EQUIPMENT ORDERS: ADAPTIVE EQUIPMENT NEEDED: Four wheeled walker DISCHARGE MEDICATIONS: Home Meds Discontinued Reported Medications Ergocalciferol (Vitamin D2) (Vitamin D2) 1,250 Mcg Capsule, 37271 UNITS PO QSA for supplement, CAP 06/03/20 Miconazole Nitrate (ANTI-FUNGAL CREAM) 113 Gm Cream..g., 113 GM TP PRN BID PRN for RASH, EACH 06/03/20 Multivitamin (DAILY VITAMIN FORMULA) 1 Each Tablet, 1 EACH PO DAILY for supplement, TAB 06/03/20 Sitagliptin Phosphate (JANUVIA) 50 Mg Tablet, 50 MG PO DAILY for diabetes, TAB 06/03/20 Polyethylene Glycol 3350 (GLYCOLAX) 119 Gm Powder, 119 GM PO DAILY for constipation, MISC 06/03/20 Glipizide (GLIPIZIDE) 10 Mg Tablet, 10 MG PO DAILY for diabetes, TAB 06/03/20 Duloxetine Hcl (CYMBALTA) 30 Mg Capsule.dr, 30 MG PO DAILY for depression, CAP 06/03/20 Docusate Sodium (DOCUSATE SODIUM) 100 Mg Capsule, 100 MG PO BID for constipation, CAP 06/03/20 Sulfamethoxazole/Trimethoprim (BACTRIM DS TABLET) 1 Each Tablet, 1 EACH PO BID for bid, TAB 06/03/20 Aspirin (Children's Aspirin) 81 Mg Tab.chew, 81 MG PO DAILY, TAB.CHEW 06/18/18 Insulin Detemir (LEVEMIR) 100 Unit/1 Ml Vial, 7 UNIT SQ BID, VIAL 02/27/17 PROMISE OLSEN MD Jun 05, 2020 15:28
--- NOTE | 2020-06-05 16:49 | NUR ---
pt being dc to hospice and back to [facility]. Report given to facility for comfort care. All lines removed, torres left for comfort. Pt unable to verbalize understanding of transfer and poc. EMS called and waiting for transport.Don BILLY aware of transfer back on [facility]. Son has been in contact today as well. Izzy SALAMANCA
--- NOTE | 2020-06-05 17:48 | DS ---
DATE OF DISCHARGE: HOSPITAL COURSE: The patient is a 80-year-old male patient who was admitted with severe sepsis, hyperosmolar nonketotic coma, acute kidney injury, severe hypernatremia. We did start him on IV fluids. He received 2 liters of normal saline at the Emergency Room, was continued on insulin drip and D5W at 100 mL per hour and he did actually improve somewhat in terms of his numbers. His white cell count went up to 32,000 today, down to 26,000. His chemistry, particularly his sodium came down from 166 down to 149 and his creatinine came down from 3.6 to 1.9. His BUN also came from 93 down to 44. However, it seems that the nursing staff spoke with the son, John, his DPOA and his son, Ramon, explained condition of the patient, talked about his foods and how he wants to be aggressive. If he wants to be aggressive, we would need to send him to a higher level of care. It seems there are some family dynamic issues with step-son and son. Both verbalized that they do not want a feeding tube or aggressive care. Apparently, our social media coordinator has spoken with the family and they decided to go on hospice and therefore the patient was discharged back to [facility] to continue on hospice care. PHYSICAL EXAMINATION: GENERAL: When I saw him today, he was resting slightly propped up in bed, in no apparent respiratory distress. He was pale, but no jaundice, cyanosis, or thyromegaly. No jugular venous distention. No lower limb edema. VITAL SIGNS: His heart rate was 86, blood pressure was 101/53, temperature 97.8, respiratory rate was 16, and oxygen saturation was 99%. HEAD, EYES, EARS, NOSE AND THROAT: Normocephalic, atraumatic. NECK: Supple. HEART: Showed normal first and second heart sounds. No gallop, rub or murmur. CHEST: Clear to auscultation. No crepitation or rhonchi. ABDOMEN: Scaphoid, soft, nontender. NEUROLOGIC: He does open his eyes, but presently continues to be nonverbal, has severe peripheral vascular disease involving mostly his right lower extremity. His intake over the last 24 hours was 3550, output was 325. LABORATORY DATA: As of this morning, his white cell count is down to 26,000, hemoglobin 8.6, hematocrit 27, MCV 94 and platelet count 235,000. His chemistry was sodium 149, potassium 4.6, chloride 116, carbon dioxide 25, anion gap of 8, BUN 44, creatinine 1.9, estimated GFR was 34 mL per minute. His glucose was 257, calcium was 7.5. Total bilirubin, AST, ALT, alkaline phosphatase were normal. Total protein 5.1, albumin was 1.5. DISCHARGE MEDICATIONS: The patient will be discharged back on hospice to continue on Roxanol 20 mg per mL solution to take 0.25-1 mL that is 5-20 mg p.o. sublingually every 2 hours as needed for pain and shortness of breath and Ativan for Intensol 2 mg per mL solution to give 0.25-1 mL at 0.5-2 mg sublingually or p.o. every 2 hours for anxiety. FINAL DISCHARGE DIAGNOSES: 1. Severe sepsis. 2. Type 2 diabetes mellitus. 3. Hyperosmolar nonketotic coma. 4. Acute on chronic kidney injury. 5. Severe hypernatremia. 6. Profound dementia. PROMISE OLSEN MD DR: SOHAN/laura JOB#: [id number] / [id number]
--- NOTE | 2020-06-05 18:43 | NUR ---
Still waiting transport from EMS. DID call for and they are still busy and will send a truck when they can Bgray RN
--- NOTE | 2020-06-05 20:29 | NUR ---
PT discharged to EMS to be transported to [facility].
--- NOTE | 2020-06-07 09:08 | NUR ---
IP: urine culture results faxed to [facility].
== END 2020-06-05 20:30 | disposition hospice, inpatient (51) | DRG 871 ==
LOC: ER 14:09 → ICU 16:50
PROVIDERS: ADMIT Internal Medicine; ATTEND Internal Medicine
DX: A41.02 Sepsis due to Methicillin resistant Staphylococcus aureus (principal); E11.00 Type 2 diabetes mellitus with hyperosmolarity without nonketotic hyperglycemic-hyperosmolar coma (NKHHC); N17.9 Acute kidney failure, unspecified; N30.01 Acute cystitis with hematuria; E11.22 Type 2 diabetes mellitus with diabetic chronic kidney disease; E11.51 Type 2 diabetes mellitus with diabetic peripheral angiopathy without gangrene; E86.0 Dehydration; F03.90 Unspecified dementia, unspecified severity, without behavioral disturbance, psychotic disturbance, mood disturbance, and anxiety; I12.9 Hypertensive chronic kidney disease with stage 1 through stage 4 chronic kidney disease, or unspecified chronic kidney disease; I70.209 Unspecified atherosclerosis of native arteries of extremities, unspecified extremity; N18.9 Chronic kidney disease, unspecified; N31.9 Neuromuscular dysfunction of bladder, unspecified; N40.0 Benign prostatic hyperplasia without lower urinary tract symptoms; R65.20 Severe sepsis without septic shock; Z51.5 Encounter for palliative care; Z86.14 Personal history of Methicillin resistant Staphylococcus aureus infection; Z87.440 Personal history of urinary (tract) infections; F32.9 Major depressive disorder, single episode, unspecified; K59.09 Other constipation; Z20.828 Contact with and (suspected) exposure to other viral communicable diseases; Z88.8 Allergy status to other drugs, medicaments and biological substances; Z79.899 Other long term (current) drug therapy; Z79.4 Long term (current) use of insulin; B95.1 Streptococcus, group B, as the cause of diseases classified elsewhere
CPT/HCPCS: 36415; 70450; 71045; 72125; 80048; 80053; 80307; 81001; 82010; 82140; 82553; 82947; 83605; 83735; 83880; 83930; 84484; 85007; 85025; 85027; 85610; 85730; 87040; 87077; 87086; 87186; 93005; 93923; 96361; 96365; J1644; J1815; J2020; J2543; J3370; J3480; J7040; 99285-25; J7030; U0003-CS